=== PATIENT | male | born 1965 | race Caucasian/White ===

== ENCOUNTER → 2019-04-14 15:35 | Outpatient (CLI) | payer OTHER, SELFPAY ==
--- NOTE | ~2019-04-14 | MR_ITS ---
EXAMINATION: MR foot RT wo con DATE: 04/14/2019 16:47 INDICATION: Spontaneous rupture of the extensor tendons, right ankle and foot. TECHNIQUE: Magnetic resonance imaging (MRI) of the right foot was performed without intravenous contr ast. Sequences included sagittal PD-weighted FS FSE, sagittal PD-weighted FSE, coronal PD-weighted FS FSE, coronal PD-weighted FSE, axial PD-weighted FS FSE, and axial PD-weighted FSE. COMPARISON: None. FINDINGS: Medial ankle ligaments: The superficial and deep components of the deltoid ligament are normal. Lateral ankle ligaments: The anterior and posterior talofibular ligaments, calcaneofibular ligament, and anterior and posterio r tibiofibular ligaments are normal. Tendons: The Achilles tendon and medial and lateral ankle tendons are normal. There is a partial tear of tibia lis anterior tendon. A skin marker overlies this area. Plantar fascia: There is thickening of central band of plantar fascia, consistent with fasciitis. There is an entheso phyte at the calcaneal attachment. Bones/other: The talar dome is normal. Fluid: There is no joint effusion. IMPRESSION: 1. Partial tear of tibialis anterior tendon. 2. Plantar fasciitis. Reviewed, dictated and finalized at location A. [employer]
== END ==
PROVIDERS: PCP Family Medicine; Visit Provider Podiatrist Foot & Ankle Surgery
DX: M66.271 Spontaneous rupture of extensor tendons, right ankle and foot (principal); M79.671 Pain in right foot; M72.2 Plantar fascial fibromatosis
CPT/HCPCS: 73718

== ENCOUNTER 2022-04-30 10:06 | Outpatient (CLI) | payer OTHER, SELFPAY ==
--- NOTE | ~2022-04-30 | XR_ITS ---
EXAMINATION: XR lumbar spine min 4V DATE: 04/30/2022 10:41 INDICATION: Low back pain TECHNIQUE: Anteroposterior, lateral, and bilateral oblique views of the lumbar spine, and cone-down l ateral view of the lumbosacral junction were obtained. COMPARISON: None. FINDINGS: There are 2 mm of anterolisthesis of L5 on S1. There is no fracture. The vertebral body hei ghts are maintained. There is mild loss of intervertebral disc space height at L1-2 and L4-5. Small d egenerative osteophytes project from the anterior endplates of multiple vertebral bodies. There is mo derate facet joint osteoarthritis of the lower lumbar spine. IMPRESSION: 1. Mild lumbar spondylosis without acute findings. Reviewed, dictated and finalized at location B. [employer]
== END 2022-04-30 10:07 | disposition home or self-care (01) ==
PROVIDERS: PCP Family Medicine; Visit Provider Nurse Practitioner Gerontology
DX: M47.896 Other spondylosis, lumbar region (principal)
CPT/HCPCS: 72110

== ENCOUNTER 2023-12-18 15:43 | Outpatient (CLI) | payer OTHER, SELFPAY ==
--- NOTE | ~2023-12-18 | XR_ITS ---
EXAMINATION: XR chest 2V DATE: 12/18/2023 16:00 INDICATION: Shortness of breath. TECHNIQUE: Frontal and lateral views of the chest were obtained. COMPARISON: None. FINDINGS: There is an anterior mediastinal mass. There is mild elevation of left hemidiaphragm. There is mild atelectasis at left lung base. No pleural effusion or pneumothorax. The heart size is normal . There is mild chronic anterior wedging of multiple vertebral bodies. IMPRESSION: 1. Anterior mediastinal mass suspicious for neoplasm. Chest CT with contrast is recommended. Reviewed, dictated and finalized at location A.
== END 2023-12-18 15:44 | disposition home or self-care (01) ==
LOC: ANHIMG 15:44
PROVIDERS: PCP Family Medicine; Visit Provider Family Medicine
DX: R06.02 Shortness of breath (principal)
CPT/HCPCS: 71046

== ENCOUNTER 2023-12-22 07:51 | Outpatient (CLI) | payer OTHER, SELFPAY ==
--- NOTE | ~2023-12-22 | CT_ITS ---
Clinical Indication: Disease of mediastinum CT Scan of the Chest with Contrast: Technique: Contiguous sections were acquired throughout the chest after intravenous administration of 75 cc of Omnipaque 350. Dose reduction technique was used on this scan by utilizing automated exposu re control and iterative reconstruction technique. The dose-length product (DLP) was 626.49 mGy-cm. Findings: There is a large lobulated homogeneous anterior mediastinal mass, measuring approximately 13.4 x 8.2 x 8.1 cm in size. No aortic aneurysm or dissection. No pulmonary embolus seen. There is no evidence of pleural or pericardial effusion. The lungs are clear, aside from left basilar atelectatic change. Images through the upper abdomen reveal no abnormalities. Impression: Large anterior mediastinal mass measures approximately 13.4 x 8.2 x 2.1 cm. Appearance is suspicious for lymphoma versus other neoplasm such as thymic neoplasm or possibly germ cell tumor. Tissue sampli ng advised to establish a histologic diagnosis. Reviewed, dictated and finalized at location M. Impression: Large anterior mediastinal mass measures approximately 13.4 x 8.2 x 2.1 cm. Zohaib earance is suspicious for lymphoma versus other neoplasm such as thymic neoplas m or possibly germ cell tumor. Tissue sampling advised to establish a histologi c diagnosis.
[2023-12-22 08:29] LABS: Estimated Glomerular Filt Rate > 60
[2023-12-22 09:16] LABS: Basophils Absolute Auto 0.1 K/mm3 (0.0-0.1); Basophils Percent Auto 1.1 % (0.2-1.2); Eosinophils Absolute Auto 0.2 K/mm3 (0-0.3); Immature Granulocyte Absolute 0.02 K/mm3 (0.00-0.031); Immature Granulocyte Percent A 0.3 % (0-0.5); Lymphocytes Absolute Auto 1.35 K/mm3 (0.9-3.2); Lymphocytes Percent Auto 18.5 % (18.3-44.2); Mean Corpuscular HGB Conc 32.6 g/dl (32-36); Mean Corpuscular Volume 79.7 fl (80-100); Mean Platelet Volume 12.2 fl (7.4-10.4); Monocytes Absolute Auto 0.7 K/mm3 (0.1-0.6); Monocytes Percent Auto 8.9 % (2.6-8.5); Neutrophils Percent Auto 68.2 % (45.5-73.1); Platelet Count Result 167 k/mm3 (150-375); Red Blood Count 5.77 M/mm3 (4.6-6.20); Red Cell Distribution Width 14.7 % (11.5-14.5); White Blood Count 7.3 K/mm3 (4.5-10.0)
[2023-12-22 09:28] LABS: Partial Thromboplastin Time 29.3 Seconds (22.3-36.8)
[2023-12-22 09:33] LABS: Alanine Aminotransferase 33 U/L (6-50); Albumin Level 3.9 g/dL (3.5-5.1); Alkaline Phosphatase 73 U/L (38-126); Anion Gap 7 mmol/L (4-12); Aspartate Amino Transferase 38 U/L (17-59); Blood Urea Nitrogen 15 mg/dL (9-20); CRP 0.8 mg/dL (<1.0); Calcium 9.1 mg/dL (8.4-10.2); Carbon Dioxide 28 mmol/L (22-30); Chloride 100 mmol/L (98-107); Estimated Glomerular Filt Rate > 60; Glucose 101 mg/dL (65-110); Lactate Dehydrogenase 236 U/L (120-246); Potassium 4.1 mmol/L (3.4-5.0); Sodium 135 mmol/L (137-145)
[2023-12-22 09:59] LABS: Carcinoembryonic Antigen 3.9 ng/mL (0.0-3.0)
[2023-12-22 10:07] LABS: Erythrocyte Sedimentation Rate 7 mm/hr (0-20)
[2023-12-23 15:34] LABS: ANA Cascade Screen POSITIVE (NEGATIVE); Chromatin (Nucleosomal) Ab <1.0 NEG AI (<1.0 NEG); Chromatin Antibody Charge YES; DNA (ds) Antibody Charge YES; RNP Antibody 4.1 POS AI (<1.0 NEG); RNP Antibody Charge YES; Sm Antibody <1.0 NEG AI (<1.0 NEG); Sm Antibody Charge YES; Sm/RNP Antibody <1.0 NEG AI (<1.0 NEG); Sm/RNP Antibody Charge YES
[2023-12-28 14:33] LABS: Alpha Fetoprotein Tumor Marker 1.1 ng/mL (<6.1)
== END 2023-12-22 07:52 | disposition home or self-care (01) ==
LOC: ANHIMG 07:53
PROVIDERS: PCP Family Medicine; Visit Provider Family Medicine
DX: J98.59 Other diseases of mediastinum, not elsewhere classified (principal); R93.89 Abnormal findings on diagnostic imaging of other specified body structures; R06.02 Shortness of breath; I10 Essential (primary) hypertension
CPT/HCPCS: 36415; 71260; 80053; 82105; 82378; 83615; 84443; 85025; 85652; 85730; 86038; 86140; 86225; 86235; 86364; Q9967

== ENCOUNTER 2023-12-29 09:03 | Outpatient (CLI) | payer OTHER, SELFPAY ==
[2023-12-23 15:32] VITALS: BMI 33.0
--- NOTE | 2023-12-23 15:33 | PC.NURSE ---
Pre Radiology instructions Report to the outpatient jeana batres on date _[id number]_ at time _0900_ for procedure Time: _1100_ YOU MAY BE MONITORED AT HOSPITAL FOR UP TO 4 HOURS AFTER YOUR PROCEDURE. A visitor will be allowed to accompany the patient into the hospital. You and your visitor will be asked to self-screen and do not enter if you have any COVID symptoms. A mask is OPTIONAL within the hospital. Patients are to have no food or drink 6 hours prior to procedure time Driving will be restricted after the procedure, you must have a person to drive you home. Labs will be drawn in preop area and once reviewed, you will be taken to radiology area for procedure. When the procedure is completed, you will be taken to outpatient where you will be monitored for several hours. You may have one visitor in this area. Other than holding anti-coagulants, patient may take other medication(s) as scheduled. Prior to your appointment date patients are instructed to hold anti-coagulants after discussing with ordering provider to stop. If unable to discontinue anti-coagulants please notify radiologist. ? No aspirin or warfarin (Coumadin) for 7 days prior to the procedure. ? No clopidogrel (Plavix), ticagrelor (Brilinta), prasugrel (Effient) or dabigatran (Pradaxa) for 5 days prior to the procedure. ? No rivaroxaban (Xarelto), apixaban (Eliquis), dipyridamole (Aggrenox or Persantine) or cilostazol (Pletal) for 2 days prior to the procedure. Medications to discontinue per physician: __Aspirin Date to take last dose: ___[id number] Please leave all valuables, including medications, at home the day of procedure. The hospital will not accept responsibility for valuables. Wear comfortable, loose fitting clothing.? Follow any additional instructions given to you from ordering provider. Telephone instructions given to ___Donnie and asked if any additional questions and then verbalized understanding. Patient advised to call scheduling provider office or registration scheduling [phone] if any additional questions.
--- NOTE | 2023-12-25 13:42 | PC.NURSE ---
Report to the outpatient jeana carneymanolojeanne on date _[id number]_ at time _0900_ for procedure Time: _1100_ YOU MAY BE MONITORED AT HOSPITAL FOR UP TO 4 HOURS AFTER YOUR PROCEDURE. A visitor will be allowed to accompany the patient into the hospital. You and your visitor will be asked to self-screen and do not enter if you have any COVID symptoms. A mask is OPTIONAL within the hospital. Patients are to have no food or drink 6 hours prior to procedure time Driving will be restricted after the procedure, you must have a person to drive you home. Labs will be drawn in preop area and once reviewed, you will be taken to radiology area for procedure. When the procedure is completed, you will be taken to outpatient where you will be monitored for several hours. You may have one visitor in this area. Other than holding anti-coagulants, patient may take other medication(s) as scheduled. Prior to your appointment date patients are instructed to hold anti-coagulants after discussing with ordering provider to stop. If unable to discontinue anti-coagulants please notify radiologist. ? No aspirin or warfarin (Coumadin) for 7 days prior to the procedure. ? No clopidogrel (Plavix), ticagrelor (Brilinta), prasugrel (Effient) or dabigatran (Pradaxa) for 5 days prior to the procedure. ? No rivaroxaban (Xarelto), apixaban (Eliquis), dipyridamole (Aggrenox or Persantine) or cilostazol (Pletal) for 2 days prior to the procedure. Medications to discontinue per physician: __Aspirin Date to take last dose: ___Stop now. Please leave all valuables, including medications, at home the day of procedure. The hospital will not accept responsibility for valuables. Wear comfortable, loose fitting clothing.? Follow any additional instructions given to you from ordering provider. Telephone instructions given to ___Donnie and asked if any additional questions and then verbalized understanding. Patient advised to call scheduling provider office or registration scheduling [phone] if any additional questions.
[2023-12-29] VITALS (8 sets, daily range): BP systolic 143–162; BP diastolic 74–93; PULSE 52–60; RESP 14–20; TEMP 36.1; O2SAT 97
--- NOTE | ~2023-12-29 | CT_ITS ---
EXAMINATION: CT biopsy lung w/imaging DATE: 12/29/2023 11:31 INDICATION: Mediastinal mass TECHNIQUE: The procedure including the risks and benefits was discussed with the patient. Risks discu ssed included infection, hemorrhage, allergic reaction and remote possibility of pneumothorax. The pa tient understood the risks and agreed to proceed. Prior imaging was reviewed and a left parasternal a pproach was chosen medial to the internal mammary vessels and which project 3/7 and lateral to the pu lmonary arteries. No enhancing vessels identified in the region of biopsy on the prior postcontrast i maging. The patient was placed supine. The skin overlying the left parasternal anterior chest was pr epped and draped in sterile fashion. Anesthetic was administered with 1% lidocaine subcutaneously. A 16 gauge outer needle was advanced under CT guidance to the lesion of interest. An 18 gauge core bi opsy needle was then used to obtain 7 core biopsy specimens, 5 placed in RPMI media and 2 in formalin . The needle was removed and the entry site was cleaned and dressed. There were no immediate complic ations. The dose-length product was 364.33 mGy-cm. FINDINGS: CT images demonstrate the outer needle tip adjacent to a large anterior mediastinal mass. IMPRESSION: 1. Successful CT-guided biopsy of a large anterior mediastinal mass concerning for metastatic disease or lymphoma. Reviewed, dictated and finalized at location A.
--- NOTE | ~2023-12-29 | XR_ITS ---
XR chest 1V portable Ordering provider: Randall Krishnan MD History: 58 years Male with . Post Image Guided Lung Biopsy . Comparison: December 29, 2023 FINDINGS: MEDIASTINUM: The cardiac silhouette is not enlarged. Widening of the superior mediastinum is seen wit h a mass seen to the left. LUNGS: No infiltrates, effusions or pneumothorax. Nodule is seen in the left lower lobe laterally. Ti ny lucency is seen in the left apical area medially which may be air bubble. OTHER: No free air under the diaphragm. IMPRESSION: No evidence of significant or obvious pneumothorax. Other appearances are unchanged. Reviewed, dictated and finalized at location A.
--- NOTE | ~2023-12-29 | XR_ITS ---
XR chest 1V Ordering provider: Randall Krishnan MD History: 58 years Male with . POST LT MEDIASTINUM/LUNG BIOPSY . Comparison: December 18, 2023 FINDINGS: MEDIASTINUM: Widening of the mediastinum is again demonstrated with no change from previous examinati on. The cardiac silhouette is not enlarged. LUNGS: No infiltrates, effusions or pneumothorax. OTHER: No free air under the diaphragm. IMPRESSION: Widening of the superior mediastinum. No acute cardiopulmonary pathology. Reviewed, dictated and finalized at location A.
--- NOTE | ~2023-12-29 | XR_ITS ---
EXAMINATION: XR chest 1V portable DATE: 12/29/2023 14:36 INDICATION: 3 hour post mediastinal biopsy TECHNIQUE: frontal view of the chest was obtained. COMPARISON: Chest radiograph dated 12/18/2023 and earlier in the day on 12/29/2023 FINDINGS: Persistent elevation of the left hemidiaphragm. There is mild streaky atelectasis at the bilateral vik ng bases. No pulmonary edema, pleural effusion or pneumothorax. Heart size is normal. Mediastinal wid ening corresponding to the biopsied anterior mediastinal mass. IMPRESSION: 1. No pneumothorax or other acute cardiopulmonary disease post percutaneous biopsy of an anterior med iastinal mass which is concerning for neoplasm. Reviewed, dictated and finalized at location A. IMPRESSION: 1. No pneumothorax or other acute cardiopulmonary disease post percutaneous bio psy of an anterior mediastinal mass which is concerning for neoplasm.
[2023-12-29 09:57] LABS: Mean Platelet Volume 11.6 fl (7.4-10.4); Platelet Count Result 178 k/mm3 (150-375)
[2023-12-29 10:09] LABS: Prothrombin Time 13.5 Seconds (11.1-14.7)
== END 2023-12-29 15:00 | disposition home or self-care (01) ==
PROVIDERS: PCP Family Medicine; Visit Provider Radiology Diagnostic Radiology
PROC: BB24ZZZ Computerized Tomography (CT Scan) of Bilateral Lungs (ICD-10-PCS; CPT 32408; principal; 2023-12-29 11:00)
DX: J98.59 Other diseases of mediastinum, not elsewhere classified (principal)
CPT/HCPCS: 32408; 36415; 71045; 85049; 85610; 88184; 88305; 88342

== ENCOUNTER 2024-08-11 13:45 | Outpatient (RCR) | payer OTHER, SELFPAY | END 2024-08-11 14:26 | disposition home or self-care (01) | LOC: ANHCPREHAB 13:45 | PROVIDERS: PCP Family Medicine; Visit Provider Internal Medicine | DX: Z95.5 Presence of coronary angioplasty implant and graft (principal) | CPT/HCPCS: 93798 ==

== ENCOUNTER 2024-08-24 14:07 | Outpatient (CLI) | payer OTHER, SELFPAY ==
--- NOTE | ~2024-08-24 | US_ITS ---
US arterial ankle brachial ind INDICATION: Peripheral vascular disease TECHNIQUE: Segmental pressures and plethysmographic and Doppler waveforms of the brachial and lower e xtremity arteries were obtained. COMPARISON: None. FINDINGS: Right and left brachial artery pressures of 113 mm Hg and 120 mm Hg, respectively, are concordant (no rmal difference <= 30 mmHg). The right ankle-brachial index (DANIEL) is 1.37 (normal >= 0.9-1.0). The right great toe-brachial index (TBI) is 1.04 (normal >= 0.60). The left DANIEL is 1.34. The left TBI is 1.02. IMPRESSION: 1. Normal ankle-brachial indices. Reviewed, dictated and finalized at location []
--- OUTSIDE RECORDS SUMMARY | 2024-08-24 16:58 | XMS_ITS | Referral Summary ---
Author Organization [facility] Address [address] [place] [address] Care Team Providers Care Estate Tax Examiner Name Role Phone Babita Smart MD Unavailable [phone] Holden Miller MD PhD Unavailable [phone] Shahid Riddle MD Unavailable [phone] Elan Riddle MD Unavailable [phone] Peter Keita MD Unavailable [phone] Peter Keita MD Primary Care Provider Encounters Date Type Department Care Team Description 08/24/2024 Telephone [facility] Cardiology [address] [facility] 8th [place] [address] [place] [address] Bridgette Elaine 08/22/2024 Telephone [facility] Oncology [address] [facility] [address] [place] [address] Anayeli Coker RMA 08/18/2024 9:30 AM CDT Clinical Support [facility] [address] [address] 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) 08/18/2024 10:00 AM CDT Office Visit [facility] Bone Marrow Transplant [address] [place] [phone] Brittaney Mitchell, OBIEE ARCHITECT 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) (Primary Dx) 08/17/2024 Orders Only [facility] Oncology [address] [place] [phone] Esther Finch, HERNAN Thyroid nodule (Primary Dx); 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) 08/16/2024 9:51 AM CDT - 08/16/2024 11:59 PM CDT Hospital Encounter [facility] [address] [address] 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) Discharge Disposition: Discharge to home or self care 07/18/2024 3:30 PM CDT Clinical Support [facility] [place] at [address] [address] 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) 07/18/2024 9:30 AM CDT Infusion [facility] Cancer [address] [address] 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) (Primary Dx) 07/14/2024 10:15 AM CDT Clinical Support [facility] [place] at [address] [address] 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) 07/14/2024 11:30 AM CDT Infusion [facility] Cancer [address] [address] 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) (Primary Dx) 07/14/2024 10:45 AM CDT Office Visit [facility] Physicians [facility] Bone Marrow Transplant [address] [place] [address] [address] [place] [address] Shahid Riddle MD 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) (Primary Dx) 07/11/2024 Orders Only [address] [phone] Siomara Wiseman [facility] 07/11/2024 10:00 AM CDT Clinical Support [address] [address] 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) 07/07/2024 10:00 AM CDT Clinical Support [address] [address] 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) (Primary Dx) 06/23/2024 11:00 AM CDT Clinical Support [address] [address] 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) 06/23/2024 12:00 PM CDT Infusion [address] [place] [address] 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) (Primary Dx) 06/23/2024 11:20 AM CDT Office Visit [facility] Bone Marrow Transplant [address] [place] [address] [address] [place] [address] Brigette Johnson, RADHA 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) (Primary Dx) 06/20/2024 Orders Only [facility] Oncology [address] [place] [address] [address] [place] [address] Shahid Riddle MD 06/20/2024 Orders Only [address] [address] Siomara Wiseman RPh 06/20/2024 8:00 AM CDT Clinical Support [address] [address] 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) 06/16/2024 Orders Only [facility] [place] at [address] [phone] Siomara Wiseman RPh 06/16/2024 8:00 AM CDT Clinical Support [facility] at [address] [address] 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) 06/13/2024 8:00 AM CDT Clinical Support [facility] at [address] [address] 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) 06/09/2024 Orders Only [facility] Oncology [address] [place] [phone] Esther Finch, HERNAN 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) (Primary Dx) 06/09/2024 8:00 AM CDT Clinical Support [facility] [place] at [address] [address] 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) 06/06/2024 2:15 PM CDT Clinical Support [facility] at [address] [address] 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) 06/06/2024 7:30 AM CDT Clinical Support [facility] [place] at [address] [address] 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) 06/06/2024 8:00 AM CDT Infusion [facility] at [address] [address] 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) (Primary Dx) 06/02/2024 8:30 AM CDT Infusion [facility] Cancer [address] [address] 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) (Primary Dx) 06/02/2024 7:30 AM CDT Clinical Support [facility] at [address] [address] 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); Iron deficiency anemia, unspecified iron deficiency anemia type 06/02/2024 8:00 AM CDT Office Visit [facility] Bone Marrow Transplant [address] [place] [address] [address] [place] [phone] Shahid Riddle MD Iron deficiency anemia, unspecified iron deficiency anemia type (Primary Dx); 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) 06/01/2024 Orders Only [facility] Bone Marrow Transplant [address] [place] [phone] Corine Zhou, [facility] 06/01/2024 Orders Only [facility] Oncology [address] [place] [address] [address] [place] [address] Vickie Mascorro, [facility] 06/01/2024 Results Follow-Up [facility] Cardiology at [address] [place] [address] Elan Riddle MD Transthoracic Echo (TTE) Complete W Doppler/CF 05/30/2024 8:30 AM CDT Clinical Support [facility] at [address] [address] 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) 05/26/2024 8:30 AM CDT Clinical Support [facility] at [address] [address] 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) from Last 3 Months Allergies No known active allergies Medications allopurinol (ZYLOPRIM) 300 mg tablet take 1 tablet (300MG) by oral route every day 0 03/10/20 12 Active sertraline (ZOLOFT) 50 mg tablet take 1 tablet by oral route every day 0 03/10/20 12 Active ALPRAZolam (XANAX) 0.25 mg tablet Take 1 tablet (0.25 mg total) by mouth 2 (two) times a day 01/22/20 24 Active ie-ncf-tvqyx-lyc [id number] 200-175-250 mcg tablet Take by mouth Active ondansetron (ZOFRAN) 8 mg tabletIndication s: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 Then every 8 hours as needed if prochlorperazine does not stop nausea. 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 16 tablet 5 02/25/20 24 Active lidocaine-priloc omid creamIndications :Administration of Local Anesthesia Apply topically as needed for pain (with port a cath access) Apply 30 minutes before appointment 30 g 2 02/25/20 24 Active predniSONE (DELTASONE) 20 mg tablet Take 7.5 tablets (150 mg) by mouth 2 (two) times a day For 5 days Days 1-5 of each 21 days cycle 75 tablet 02/25/20 24 Active senna-docusate (Senna-S) 8.6-50 mgIndications:Di ffuse large B-cell lymphoma of intrathoracic lymph nodes (HCC) Take 2 tablets by mouth 2 (two) times a day 120 tablet 03/27/19 25 Active prochlorperazine (Compazine) 10 mg tabletIndication s: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) Take 1 tablet (10 mg total) by mouth every 6 (six) hours as needed for nausea or vomiting 120 tablet 03/27/19 25 Active aspirin (Derrell Low Dose Aspirin) 81 mg enteric coated tablet Take 1 tablet (81 mg total) by mouth daily 30 tablet 04/12/19 25 Active metoprolol XL (TOPROL-XL) 50 mg extended release tablet Take 1 tablet (50 mg total) by mouth nightly 90 tablet 3 04/12/19 25 Active ticagrelor (BRILINTA) 90 mg tablet Take 1 tablet (90 mg total) by mouth 2 (two) times a day 180 tablet 3 04/12/19 25 Active famotidine (PEPCID) 20 mg tabletIndication s: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) TAKE 1 TABLET BY MOUTH EVERY DAY 90 tablet 2 04/17/19 25 Active atorvastatin (LIPITOR) 40 mg tablet Take 1 tablet (40 mg total) by mouth nightly 90 tablet 3 04/21/19 25 026 Active dapagliflozin propanediol (FARXIGA) 10 mg tablet Take 1 tablet (10 mg total) by mouth daily 90 tablet 3 04/21/19 25 Active losartan (COZAAR) 25 mg tablet Take 1 tablet (25 mg total) by mouth daily 90 tablet 3 04/21/19 25 026 Active spironolactone (ALDACTONE) 25 mg tablet Take 1 tablet (25 mg total) by mouth daily 90 tablet 3 04/21/19 25 026 Active al & mag hydroxide with simethicone-diph enhydramine-lido bhupinder (MAGIC MOUTHWASH) suspension 1-1-1 Swish and spit 15 mL 4 (four) times a day as needed (mouthsores) 360 mL 1 07/05/19 25 Active furosemide (LASIX) 20 mg tablet Take 1 tablet (20 mg total) by mouth 2 (two) times a day for 5 days 10 tablet 2 07/15/19 25 Active Active Problems Problem Noted Date Diagnosed Date Heart failure with mildly reduced ejection fract ion 04/08/2024 Constipation 03/25/2024 Assessment & Plan (03/26/2024 10:47 AM PATIENT RELATIONS LIAISON): Several days of constipation - Senna-docusate bid, miralax and bisacodyl suppository prn in addition - Advised to avoid straining - Resolved 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 Diagnosed with mediastinal mass biopsy 02/10/2024. Ki-67 50% Started C1D1 R-EPOCH on 02/26/2024, C2D1 on 03/17/2024 - Follow the rest of BMT recs: Hold R-EPOCH for now - OI ppx: acyclovir 400 mg BID, Bactrim 800-160 MWF - Transfuse per BMT protocol (Hb <8, Plt <10) NSTEMI (non-ST elevated myocardial infarction) 0 03/23/2024 Assessment & Plan (03/28/2024 11:38 AM PATIENT RELATIONS LIAISON): Patient with known CAD experiencing chest pain starting 03/17/24 about 12 hrs after C2 R-EPOCH lasted for an hour and then resolved spontaneously. Presented to OSH ([facility]): Troponin I elevated 0.164 on admission, peaked at 2.7 on 03/18 and then trended down 1.2 on 03/20. NT-proBNP 358. EKG with normal sinus rhythm and no ischemic changes per chart review. Started on heparin gtt for NSTEMI management. Unclear if with aspirin load, on aspirin 81mg daily Per cath report, left main coronary artery is widely patent but the mid LAD has a stent with 99% stenosis and vessel appears to be constricted past this area of stenosis. Left circumflex artery showed that there is a large caliber vessel that branches into 2 significant OM branches and right before the bifurcation, there is a 90-95% stenosis. RCA midbody has a eccentric 70% stenosis. The LVED pressure 12 mmHg. Per OSH cardiology team, they discussed with pt about PCI vs CABG. Given his hx of in-stent restenoses and that is he is 58 years old who did not have radiation therapy and is relatively functional, it was decided that he should have a surgical eval. He was transferred to [facility] to be evaluated. CTA Chest 03/18/2024: negative for PE, aortic dissection, or aortic aneurysm. The extensive homogeneous anterior mediastinal mass is decreased in extent from prior exam CT chest and cath images uploaded on [employer] Previous TTE 02/05/2024 LVEF 40-45% with anterior wall akinesis, apical wall akinesis, hypokinesis of anterioseptal segment. Possible apical aneurysm, difficult to assess given limited views. - Follow Cardiothoracic surgery, Cards-Onc recs. Recommending CAD heart team discussion on CABG vs PCI. Final plan: 03/25/24, PCI to LAD with drug-coated balloon to temporize his coronary disease prior to any surgical intervention. Potentially may be considered eligible for CABG later on after treatment of lymphoma - Continued heparin gtt (until prior to PCI), home aspirin 81mg, increased dose atorvastatin to 40mg, and metoprolol 50mg daily - Follow DAPT recs: loaded with clopdigorel during PCI, changed to ticagrelor (load 180mg on 03/26) then started ticagrelor 90mg bid 03/26 evening, maintain aspirin 81mg daily. Continue DAPT for at least 30 days. 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 distal septal and apical barraza. Grade I diastolic LV dysfunction - Telemetry while inpatient - Cardiac rehab as outpatient. F/u with local cop Diffuse large B-cell lymphoma of intrathoracic l ymph nodes 02/18/2024 Mediastinal mass 02/09/2024 Persons encountering health services in other specified circumstances 02/02/2024 Mixed hyperlipidemia 04/05/2021 LVE (left ventricular enlargement) 04/05/2021 Bradycardia 11/30/2017 S/P coronary artery stent placement 10/08/2016 Adiposity 04/02/2016 Overview (06/19/2016): Obesity, Class I, BMI 30.0-34.9 (see actual BMI) CAD (coronary artery disease) 04/02/2016 Overview (06/19/2016): Coronary artery disease involving tlingit & [place] coronary artery of tlingit & ha[place] heart without angina pectoris Assessment & Plan (03/24/2024 10:20 AM PATIENT RELATIONS LIAISON): CAD s/p stent placement (2006 in [place], [place]) Management as above Hypertension 04/02/2016 Overview (06/19/2016): HTN (hypertension), benign Assessment & Plan (03/28/2024 11:34 AM PATIENT RELATIONS LIAISON): BP stable. Discontinue home HCTZ-irbesartan, hydralazine, doxazosin to allow room for heart failure GDMT initiation. See above Abnormal thallium stress test 04/02/2016 Overview (06/19/2016): Abnormal nuclear stress test BLUE (obstructive sleep apnea) 04/02/2016 Overview (06/19/2016): BLUE on CPAP Assessment & Plan (03/24/2024 10:16 AM PATIENT RELATIONS LIAISON): CPAP HS History of myocardial infarction 04/02/2016 Overview (06/19/2016): H/O acute myocardial infarction Resolved Problems Problem Noted Date Diagnosed Date Resolved Date Heart failure with reduced ejection fraction 5 04/08/2024 Assessment & Plan (03/28/2024 11:38 AM PATIENT RELATIONS LIAISON): 01/2024: LV systolic function is reduced, EF 40-45% Currently compensated - Repeated TTE this admission as mentioned above - Continue home metoprolol 50mg daily. Add spironolactone 25mg daily, losartan 25mg daily, dapagliflozin 10mg daily per Cards. 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 4 Dyslipidemia 04/02/2016 04/05/2021 Overview (06/19/2016): Dyslipidemia History of placement of sten t for coronary artery disease 04/02/2016 04/05/2021 Overview (06/19/2016): S/P coronary artery stent placement Immunizations Immunization Administration Dates Next Due Influenza, Split 02/17/2013 Influenza, Unspecified 12/15/2023 ZOSTER Recombinant 10/18/2022,08/08/2022 Social History Tobacco Use Types Packs/Day Years Used Date Smoking Tobacco: Never Smokeless Tobacco: Never Alcohol Use Standard Drinks/Week Comments No 0 (1 standard drink = 0.6 oz pur e alcohol) AUDIT-C Answer Date Recorded Q1: How often do you have a drink containing alcohol? Never 08/18/2024 Q2: How many drinks containi ng alcohol do you have on a typical day when you are drinking? Patient does not drink Q3: How often do you have si x or more drinks on one occasion? Never 08/18/2024 Personal Safety Answer Date Recorded Have you ever been in or are you currently in a harmful physical or emotional relationship or is someone making you feel afraid or unsafe? Denies 03/23/2024 Sex and Gender Information Value Date Recorded Sex Assigned at Not on file Legal Sex Male 2:34 AM PATIENT RELATIONS LIAISON Gender Identity Male 12/19/2023 7:33 PM CDT Sexual Orientation Straight 12/19/2023 7: 33 PM CDT Last Filed Vital Signs Vital Sign Reading Time Taken Comments Blood Pressure 123/78 08/18/2024 10:51 AM CDT Pulse 64 08/18/2024 10:51 AM CDT Temperature 36.9 C (98.5 F) 08/18/2024 10:51 AM CDT Respiratory Rate 18 08/18/2024 10:5 1 AM CDT Oxygen Saturation 100% 08/18/2024 10: 51 AM CDT Inhaled Oxygen Concentration - - Weight 112.8 kg (248 lb 10.9 oz) 2024 10:51 AM CDT Height 190.5 cm (6' 3) 04/08/2024 7:57 AM PATIENT RELATIONS LIAISON Body Mass Index 31.08 04/08/2024 7:57 AM PATIENT RELATIONS LIAISON Plan of Treatment Not on file Medical Devices Implanted Type Area Butt Trimmer Device Identifier Shelf Expiration Date Model / Serial / Lot [employer] Angio-Seal Vip 6fr Closere Device [id number] - [id number] - [id number] Implanted:Qt y: 1 on 03/25/2024 by Zi Orozco MD PhD at [facility] Collagen N/A: Superficial Femoral Artery [employer] Les[employer] 07/27/2024 [id number] / [id number] / [id number] Medtronic Card Vasc Surgery 2.75 X 34mm Parkman Pershing Rx Coronary Stent [id number] x - [id number] 001 - [id number] Implanted:Qt y: 1 on 03/25/2024 by Zi Orozco MD PhD at [facility] Stent N/A: Coronary Artery Medtronic Card Vasc Surgery 09/27/2026 [id number] / [id number] / [id number] Description:OM Medtronic Card Vasc Surgery 3.5 X 18mm Parkman Pershing Rx Coronary Stent [id number] x - [id number] 001 - [id number] Implanted:Qt y: 1 on 03/25/2024 by Zi Orozco MD PhD at [facility] Stent N/A: Coronary Artery Medtronic Card Vasc Surgery 11/19/2026 [id number] 18UX / [id number] / [id number] Description:OM [employer] Xcela Power Port 8fr [id number] - [id number] Implanted:Qt y: 1 on 02/08/2024 at [facility] Ang[employer] Dynamics 08/29/2028 [id number] / / [id number] Procedures Procedure Name Priority Date/Time Associated Diagnosis Comments EGFR Routine 08/18/2024 9:46 AM CDT 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) BLOOD SMEAR REVIEW Routine 08/18/2024 9: 46 AM CDT 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) DIFFERENTIAL AUTO Routine 08/18/2024 9:4 6 AM CDT 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) CBC WITH AUTO DIFFERENTIAL Routine 08/18/2024 9:46 AM CDT 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) COMPREHENSIVE METABOLIC PANEL Routine 08/18/2024 9:46 AM CDT 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) LACTATE DEHYDROGENASE Routine 08/18/2024 9:46 AM CDT 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) PET/CT FDG SKULL TO THIGH Schedule Routine, Read Routine (OP Routine) 08/16/2024 11:21 AM CDT 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) POCT GLUCOSE DEVICE Routine 08/16/2024 10:01 AM CDT EGFR STAT 07/14/2024 10:29 AM CDT 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) DIFFERENTIAL AUTO STAT 07/14/2024 10:29 AM CDT 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) LACTATE DEHYDROGENASE Routine 07/14/2024 10:29 AM CDT 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) COMPREHENSIVE METABOLIC PANEL STAT 07/14/2024 10:29 AM CDT 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) CBC WITH AUTO DIFFERENTIAL STAT 07/14/2024 10:29 AM CDT 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) EGFR Routine 07/11/2024 10:16 AM CDT 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) BLOOD SMEAR REVIEW Routine 07/11/2024 10:16 AM CDT 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) DIFFERENTIAL AUTO Routine 07/11/2024 10:16 AM CDT 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) CBC WITH AUTO DIFFERENTIAL Routine 07/11/2024 10:16 AM CDT 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) COMPREHENSIVE METABOLIC PANEL Routine 07/11/2024 10:16 AM CDT 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) EGFR Routine 07/07/2024 10:05 AM CDT 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) BLOOD SMEAR REVIEW Routine 07/07/2024 10:05 AM CDT 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) DIFFERENTIAL AUTO Routine 07/07/2024 10:05 AM CDT 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) CBC WITH AUTO DIFFERENTIAL Routine 07/07/2024 10:05 AM CDT 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) COMPREHENSIVE METABOLIC PANEL Routine 07/07/2024 10:05 AM CDT 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) EGFR Routine 07/04/2024 10:21 AM CDT 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) BLOOD SMEAR REVIEW Routine 07/04/2024 10:21 AM CDT 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) IMMATURE PLATELET FRACTION Routine 07/04/2024 10:21 AM CDT 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) DIFFERENTIAL AUTO Routine 07/04/2024 10:21 AM CDT 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) CBC WITH AUTO DIFFERENTIAL Routine 07/04/2024 10:21 AM CDT 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) COMPREHENSIVE METABOLIC PANEL Routine 07/04/2024 10:21 AM CDT 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) EGFR Routine 06/30/2024 8:29 AM CDT 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) BLOOD SMEAR REVIEW Routine 06/30/2024 8: 29 AM CDT 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) DIFFERENTIAL AUTO Routine 06/30/2024 8:2 9 AM CDT 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) CBC WITH AUTO DIFFERENTIAL Routine 06/30/2024 8:29 AM CDT 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) COMPREHENSIVE METABOLIC PANEL Routine 06/30/2024 8:29 AM CDT 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) EGFR Routine 06/27/2024 11:18 AM CDT 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) DIFFERENTIAL AUTO Routine 06/27/2024 11:18 AM CDT 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) COMPREHENSIVE METABOLIC PANEL Routine 06/27/2024 11:18 AM CDT 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) CBC WITH AUTO DIFFERENTIAL Routine 06/27/2024 11:18 AM CDT 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) EGFR STAT 06/23/2024 11:14 AM CDT 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) DIFFERENTIAL AUTO STAT 06/23/2024 11:14 AM CDT 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) CBC WITH AUTO DIFFERENTIAL STAT 06/23/2024 11:14 AM CDT 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) COMPREHENSIVE METABOLIC PANEL STAT 06/23/2024 11:14 AM CDT 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) LACTATE DEHYDROGENASE Routine 06/23/2024 11:14 AM CDT 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) EGFR Routine 06/20/2024 8:20 AM CDT 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) BLOOD SMEAR REVIEW Routine 06/20/2024 8: 20 AM CDT 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) DIFFERENTIAL AUTO Routine 06/20/2024 8:2 0 AM CDT 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) CBC WITH AUTO DIFFERENTIAL Routine 06/20/2024 8:20 AM CDT 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) COMPREHENSIVE METABOLIC PANEL Routine 06/20/2024 8:20 AM CDT 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) EGFR Routine 06/16/2024 8:09 AM CDT 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) IMMATURE PLATELET FRACTION Routine 06/16/2024 8:09 AM CDT 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) BLOOD SMEAR REVIEW Routine 06/16/2024 8: 09 AM CDT 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) DIFFERENTIAL AUTO Routine 06/16/2024 8:0 9 AM CDT 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) CBC WITH AUTO DIFFERENTIAL Routine 06/16/2024 8:09 AM CDT 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) COMPREHENSIVE METABOLIC PANEL Routine 06/16/2024 8:09 AM CDT 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) MANUAL DIFFERENTIAL Routine 06/13/2024 8 :24 AM CDT 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) EGFR Routine 06/13/2024 8:24 AM CDT 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) DIFFERENTIAL AUTO Routine 06/13/2024 8:2 4 AM CDT 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) COMPREHENSIVE METABOLIC PANEL Routine 06/13/2024 8:24 AM CDT 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) CBC WITH AUTO DIFFERENTIAL Routine 06/13/2024 8:24 AM CDT 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) EGFR Routine 06/09/2024 8:22 AM CDT 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) MANUAL DIFFERENTIAL Routine 06/09/2024 8 :22 AM CDT 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) DIFFERENTIAL AUTO Routine 06/09/2024 8:2 2 AM CDT 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) CBC WITH AUTO DIFFERENTIAL Routine 06/09/2024 8:22 AM CDT 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) COMPREHENSIVE METABOLIC PANEL Routine 06/09/2024 8:22 AM CDT 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) EGFR Routine 06/06/2024 7:51 AM CDT 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) DIFFERENTIAL AUTO Routine 06/06/2024 7:5 1 AM CDT 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) CBC WITH AUTO DIFFERENTIAL Routine 06/06/2024 7:51 AM CDT 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) COMPREHENSIVE METABOLIC PANEL Routine 06/06/2024 7:51 AM CDT 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) EGFR Routine 06/02/2024 7:38 AM CDT 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) DIFFERENTIAL AUTO Routine 06/02/2024 7:3 8 AM CDT 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) FERRITIN Routine 06/02/2024 7:38 AM CDT Iron deficiency anemia, unspecified iron deficiency anemia type IRON PROFILE W/ IBC Routine 06/02/2024 7 :38 AM CDT Iron deficiency anemia, unspecified iron deficiency anemia type LACTATE DEHYDROGENASE Routine 06/02/2024 7:38 AM CDT 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) COMPREHENSIVE METABOLIC PANEL Routine 06/02/2024 7:38 AM CDT 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) CBC WITH AUTO DIFFERENTIAL Routine 06/02/2024 7:38 AM CDT 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) TRANSTHORACIC ECHO (TTE) COMPLETE W DOPPLER/CF W CONTRAST Routine 05/30/2024 2:57 PM CDT Heart failure with mildly reduced ejection fraction (HCC) EGFR Routine 05/30/2024 8:40 AM CDT 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) DIFFERENTIAL AUTO Routine 05/30/2024 8:4 0 AM CDT 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) CBC WITH AUTO DIFFERENTIAL Routine 05/30/2024 8:40 AM CDT 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) COMPREHENSIVE METABOLIC PANEL Routine 05/30/2024 8:40 AM CDT 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) MANUAL DIFFERENTIAL Routine 05/26/2024 8 :36 AM CDT 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) EGFR Routine 05/26/2024 8:36 AM CDT 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) COMPREHENSIVE METABOLIC PANEL Routine 05/26/2024 8:36 AM CDT 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) CBC WITH AUTO DIFFERENTIAL Routine 05/26/2024 8:36 AM CDT 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) HEPATITIS C ANTIBODY Routine 02/18/2024 12:48 PM PATIENT RELATIONS LIAISON Mediastinal mass from Last 3 Months or Most Recently Relevant to Health Maintenance Results * Blood smear review (08/18/2024 9:46 AM CDT) RBC morphology Consistent with RBC Indicies Comment:Testing performed by : [address] [address] Platelet estimate Adequate ETHAN Comment:Testing performed by : [address] [address] Blood 08/18/2024 9:46 AM CDT 08/18/2024 9:51 AM CDT Shahid Riddle MD LAB BLOOD ORDERABLES Final R esult Performing Organization Address [facility] de Phone Number [place] [phone] [facility] [employer] [facility] [place] [address] * eGFR (08/18/2024 9:46 AM CDT) eGFR >90 >=60 mL/min/1. 73 m2 Comment: Interpretive Data Reference Interval Normal >/= 90 mL/min/1.73m2 Mildly decreased* 60 - 89 mL/min/1.73m2 Mildly to moderately decreased 45 - 59 mL/min/1.73m2 Moderately to severely decreased 30 - 44 mL/min/1.73m2 Severely decreased 15 - 29 mL/min/1.73m2 Kidney Failure < 15 mL/min/1.73m2 *Relative to young adult level Estimated glomerular filtration rate is determined by the 2020 CKD-EPI equation recommended by the National Kidney Foundation (A Unifying Approach to GFR Estimation: Recommendations of the NKF-ASK Task Force on Reassessing the Inclusion of Race in Diagnosing Kidney Disease, JASN 2020). The CKD-EPI equation should not be used for patients with unstable renal function and has not been validated in children and those over 70. Current interpretive data was last reviewed 2021. Testing performed by: [address] [address] Blood 08/18/2024 9:46 AM CDT 08/18/2024 9:51 AM CDT Shahid Riddle MD LAB BLOOD ORDERABLES Final R esult Performing Organization Address [facility] Co de Phone Number [facility] [address] [facility] Department [place] [address] * (ABNORMAL) Differential, auto (08/18/2024 9:46 AM CDT) Neutrophil abs 2.82 1.50 - 6.50 K/cumm Comment:Testing performed by : [address] [address] Imm gran abs 0.03 0.00 - 0.10 K/cumm ETHAN SONG Comment:Testing performed by : [address] [address] Lymphocyte abs 0.32(L) 0.80 - 3.30 K/cumm ETHAN Comment:Testing performed by : [address] [address] Monocyte abs 0.37 0.20 - 0.80 K/cumm ETHAN Comment:Testing performed by : [address], [place]., [address] Eosinophil abs 0.04 0.00 - 0.50 K/cumm [facility] Comment:Testing performed by : [address], [place]., [address] Basophil abs 0.05 0.00 - 0.10 K/cumm [facility] Comment:Testing performed by : [address] [address] Neutrophil pct 77.7 % [facility] Comment: Interpretive Data Percent cell count reference ranges are not reported, since discordance with absolute values may lead to misinterpretation of CBC data. Current Interpretive Data was last revised on 2017. Testing performed by: [address] [address] Imm gran pct 0.8 % [facility] Comment: Interpretive Data Percent cell count reference ranges are not reported, since discordance with absolute values may lead to misinterpretation of CBC data. Current Interpretive Data was last revised on 2017. Testing performed by: [address] [address] Lymphocyte pct 8.8 % [facility] Comment: Interpretive Data Percent cell count reference ranges are not reported, since discordance with absolute values may lead to misinterpretation of CBC data. Current Interpretive Data was last revised on 2017. Testing performed by: [address] [address] Monocyte pct 10.2 % [facility] Comment: Interpretive Data Percent cell count reference ranges are not reported, since discordance with absolute values may lead to misinterpretation of CBC data. Current Interpretive Data was last revised on 2017. Testing performed by: [address] [address] Eosinophil pct 1.1 % ETHAN Comment: Interpretive Data Percent cell count reference ranges are not reported, since discordance with absolute values may lead to misinterpretation of CBC data. Current Interpretive Data was last revised on 2017. Testing performed by: [address] [address] Basophil pct 1.4 % ETHAN Comment: Interpretive Data Percent cell count reference ranges are not reported, since discordance with absolute values may lead to misinterpretation of CBC data. Current Interpretive Data was last revised on 2017. Testing performed by: [address] [address] Blood 08/18/2024 9:46 AM CDT 08/18/2024 9:51 AM CDT us Shahid Riddle MD LAB BLOOD ORDERABLES Final R esult [facility] [address] [facility] Department [place] [address] * (ABNORMAL) CBC with auto differential (08/18/2024 9:46 AM CDT) WBC 3.63(L) 3.80 - 9.90 K/cumm Comment:Testing performed by : [address] [address] Hgb 10.9(L) 13.0 - 17.5 g/dL ETHAN Comment:Testing performed by : [address] [address] Hct 34.5(L) 38.9 - 50.3 % ETHAN Comment:Testing performed by : [address] [address] Plt 143(L) 150 - 400 K/cumm ETHAN Comment:Testing performed by : [address] [address] MPV Not Measured 9.1 - 12.3 fL ETHAN Comment:Testing performed by : [address] [address] RBC 4.21(L) 4.30 - 5.80 M/cumm ETHAN Comment:Testing performed by : [address] [address] MCV 81.9 81.3 - 96.4 fL ETHAN Comment:Testing performed by : [address] [address] MCH 25.9(L) 27.1 - 33.3 pg ETHAN Comment:Testing performed by : [address] [address] MCHC 31.6(L) 32.3 - 35.7 g/dL ETHAN Comment:Testing performed by : [address] [address] RDW CV 18.4(H) 11.1 - 14.9 % ETHAN Comment:Testing performed by : [address] [address] RDW SD 55.0(H) 35.7 - 48.1 fL ETHAN Comment:Testing performed by : [address] [address] NRBC abs 0.00 0.00 - 0.01 K/cumm ETHAN Comment:Testing performed by : [address] [address] ANC Prelim 2.82 1.50 - 6.50 K/cumm ETHAN Comment: Interpretive Data The rapid ANC is a preliminary automated count and may vary from the final ANC (Neut Abs) reported in the WBC differential that follows. Current interpretive data was last revised 2024. Testing performed by: [address] [address] Blood 08/18/2024 9:46 AM CDT 08/18/2024 9:51 AM CDT us Shahid Riddle MD LAB BLOOD ORDERABLES Final R esult ETHAN [address] [facility] Department of Laboratories [place], [place] [id number] * Lactate dehydrogenase (LD) (08/18/2024 9:46 AM CDT) Lactate dehydrogenase (LDH) 173 100 - 250 Units/L Comment:Testing performed by : [address] [address] Blood 08/18/2024 9:46 AM CDT 08/18/2024 9:51 AM CDT Shahid Riddle MD LAB BLOOD ORDERABLES Final R esult [facility] [address] [facility] Department of Laboratories [place], [place] [id number] * (ABNORMAL) Comprehensive metabolic panel (08/18/2024 9:46 AM CDT) Pathologist [facility] Sodium 139 135 - 145 mmol/L Comment:Testing performed by : [address] [address] Potassium, pl 4.0 3.3 - 4.9 mmol/L ETHAN Comment:Testing performed by : [address] [address] Chloride 106 97 - 110 mmol/L ETHAN Comment:Testing performed by : [address] [address] CO2 22 22 - 32 mmol/L ETHAN Comment:Testing performed by : [address] [address] Anion gap 11 2 - 15 mmol/L ETHAN Comment:Testing performed by : [address] [address] BUN 16 6 - 25 mg/dL ETHAN Comment:Testing performed by : [address] [address] Creatinine 0.90 0.80 - 1.30 mg/dL ETHAN Comment:Testing performed by : [address] [address] Glucose 154 70 - 199 mg/dL ETHAN Comment: Interpretive Data Fasting glucose >/= 126 mg/dl is diagnostic for diabetes. Fasting is defined as no caloric intake for at least 8 hours. Fasting glucose between 100 mg/dl to 125 mg/dl is diagnostic of prediabetes. In a patient with classic symptoms of hyperglycemia or hyperglycemic crisis, a random glucose >/= 200 mg/dl is diagnostic for diabetes. In the absence of unequivocal hyperglycemia, results should be confirmed by repeat testing. The classification and Diagnosis of Diabetes Diabetes Care 2021; 46: S19-S40. Current interpretive data was last revised 2022. Testing performed by: [address] [address] Calcium 9.2 8.5 - 10.3 mg/dL ETHAN Comment:Testing performed by : [address] [address] Bilirubin, total 0.5 0.1 - 1.2 mg/dL ETHAN Comment:Testing performed by : [address] [address] Protein, pl 5.9(L) 6.5 - 8.5 g/dL ETHAN Comment:Testing performed by : [address] [address] Albumin 4.2 3.5 - 5.0 g/dL ETHAN Comment:Testing performed by : [address] [address] Alk phos 79 40 - 130 Units/L ETHAN Comment:Testing performed by : [address] [address] ALT 33 7 - 55 Units/L ETHAN Comment:Testing performed by : [address] [address] AST 33 10 - 50 Units/L ETHAN Comment:Testing performed by : [address] [address] Blood 08/18/2024 9:46 AM CDT 08/18/2024 9:51 AM CDT us Shahid Riddle MD LAB BLOOD ORDERABLES Final R esult ETHAN [address] [facility] Department of Laboratories [place], [place] [id number] [phone] * PET/CT FDG Skull to Thigh (08/16/2024 11:21 AM CDT) Anatomical Region Laterality Modality N/A Positron Emissio n Tomography (PET) 08/16/2024 1:11 PM CDT Narrative 08/16/2024 1:32 PM CDT EXAM DESCRIPTION: PET/CT FDG SKULL TO THIGH RADIOPHARMACEUTICAL: 11.7 mCi F-18 Fluorodeoxyglucose (FDG) via a right antecubital vein IV site REASON FOR STUDY: Diffuse large B-cell lymphoma. Last reported chemotherapy 07/14/2024. TECHNIQUE: The patient's fasting blood glucose level, measured by glucometer before injection of FDG, was 98 mg/dL. After intravenous administration of FDG, noncontrast CT images were obtained for attenuation correction and for fusion with emission PET images to allow for anatomical localization of PET findings. Emission PET images were then obtained. The reported standardized uptake value maximum (SUVmax) values have been normalized to body weight (SUVbw). The area imaged spanned the region from the skull base to the proximal thighs . The time from injection of FDG to start of imaging was 59 minutes. COMPARISON: PET-CT 04/11/2024 FINDINGS: For reference, the maximum SUV of the ascending thoracic aorta is 3 . The maximum SUV of the liver is 4.1 . Head: Normal FDG uptake is seen in the included portion of the brain. Neck: Focal uptake within the right thyroid with an SUV of 4.1 compared to 3.7 previously. Chest: The previously seen focal uptake in the left anterior mediastinum has an SUV of 2.6 compared to 7.5 previously. The soft tissue in the anterior mediastinum otherwise shows mild diffuse low level activity with an SUV of 2.8 compared to 2.4 previously. No new suspicious hypermetabolic lymphadenopathy in the chest. Previous presumed right upper lobectomy. Minimal bandlike scarring in the left lower lobe shows no significant FDG uptake and is grossly similar. The heart is borderline enlarged. 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 Moderate coronary artery calcification. No pericardial or pleural effusion. Left thyroid nodule measuring 1.4 cm with an SUV of 3.6. According to the White Paper of the ACR Incidental Thyroid Findings Committee, incidentally detected thyroid nodules in patients 35 years, further evaluation with thyroid ultrasound if the nodule is 1.5 cm, without suspicious imaging features, and the patient has normal life expectancy. Right chest port tip terminates at the inferior right atrium. Bandlike soft tissue in the medial left upper chest is once again seen and shows mild FDG uptake with an SUV of 2.8 compared to 6.5 previously. Abdomen and Pelvis: No focal hypermetabolic liver lesion. No calcified gallstones. The spleen is normal. Normal pancreas without focal FDG activity. No focal hypermetabolic adrenal lesion. Photopenic cyst in the interpolar left kidney requires no specific follow-up. No hydronephrosis. Mild cortical scarring in the upper pole of the right kidney is unchanged. Normal gastrointestinal activity is seen. No hypermetabolic lymph nodes in the abdomen or pelvis. Atherosclerotic calcification of the abdominal aorta without aneurysm. Small fat containing left inguinal hernia. Bones: No acute or aggressive appearing osseous lesions. IMPRESSION: Significant interval decrease in the metabolic activity of the soft tissue in the anterior mediastinum. The SUV is 2.6 compared to 7.5 previously (Deauville 2 ). No new suspicious hypermetabolic lymphadenopathy. Focal uptake within the right thyroid with an SUV of 4.1 compared to 3.7 previously. Left thyroid nodule measuring 1.4 cm with an SUV of 3.6. Correlation with thyroid ultrasound is recommended. THIS IS AN ELECTRONICALLY VERIFIED FINAL REPORT 08/16/2024 1:32 PM - Electronically signed by Frank Hanson M.D. LB: SIGRID Report ID: [id number] Reading Location: [id number] Procedure Note Frank Hanson MD - 08/16/2024 EXAM DESCRIPTION: PET/CT FDG SKULL TO THIGH RADIOPHARMACEUTICAL: 11.7 mCi F-18 Fluorodeoxyglucose (FDG) via a right antecubital vein IV site REASON FOR STUDY: Diffuse large B-cell lymphoma. Last reportedchemotherapy 07/14/2024. TECHNIQUE: The patient's fasting blood glucose level, measured byglucometer before injection of FDG, was 98 mg/dL. After intravenous administrationof FDG, noncontrast CT images were obtained for attenuation correction andfor fusion with emission PET images to allow for anatomical localization ofPET findings. Emission PET images were then obtained. The reportedstandardized uptake value maximum (SUVmax) values have been normalized to body weight (SUVbw). The area imaged spanned the region from the skull base to the proximal thighs . The time from injection of FDG to start of imaging was59 minutes. COMPARISON: PET-CT 04/11/2024 FINDINGS: For reference, the maximum SUV of the ascending thoracic aortais 3 . The maximum SUV of the liver is 4.1 . Head: Normal FDG uptake is seen in the included portion of the brain. Neck: Focal uptake within the right thyroid with an SUV of 4.1 compared to 3.7 previously. Chest: The previously seen focal uptake in the left anterior mediastinum has anSUV of 2.6 compared to 7.5 previously. The soft tissue in the anterior mediastinum otherwise shows mild diffuse low level activity with an SUV of2.8 compared to 2.4 previously. No new suspicious hypermetaboliclymphadenopathy in the chest. Previous presumed right upper lobectomy. Minimal bandlike scarring in the left lower lobe shows no significant FDG uptake and is grossly similar.The heart is borderline enlarged. Left ventricular aneurysm is grosslysimilar in appearance. Moderate coronary artery calcification. No pericardial or pleural effusion. Left thyroid nodule measuring 1.4 cm with an SUVof 3.6. According to the White Paper of the ACR Incidental Thyroid Findings Committee, incidentally detected thyroid nodules in patients 35 years,further evaluation with thyroid ultrasound if the nodule is 1.5 cm, withoutsuspicious imaging features, and the patient has normal life expectancy. Rightchest port tip terminates at the inferior right atrium. Bandlike soft tissue inthe medial left upper chest is once again seen and shows mild FDG uptake withan SUV of 2.8 compared to 6.5 previously. Abdomen and Pelvis: No focal hypermetabolic liver lesion. No calcified gallstones. The spleen is normal. Normal pancreas without focal FDG activity. No focal hypermetabolic adrenal lesion. Photopenic cyst in the interpolar leftkidney requires no specific follow-up. No hydronephrosis. Mild corticalscarring in the upper pole of the right kidney is unchanged. Normalgastrointestinal activity is seen. No hypermetabolic lymph nodes in the abdomen orpelvis. Atherosclerotic calcification of the abdominal aorta without aneurysm. Small fat containing left inguinal hernia. Bones: No acute or aggressive appearing osseous lesions. IMPRESSION: Significant interval decrease in the metabolic activity of the softtissue in the anterior mediastinum. The SUV is 2.6 compared to 7.5 previously(Deauville 2 ). No new suspicious hypermetabolic lymphadenopathy. Focal uptake within the right thyroid with an SUV of 4.1 compared to 3.7 previously. Left thyroid nodule measuring 1.4 cm with an SUV of 3.6. Correlation with thyroid ultrasound is recommended. THIS IS AN ELECTRONICALLY VERIFIED FINAL REPORT 08/16/2024 1:32 PM - Electronically signed by Frank Hanson M.D. LB: LB Report ID: [id number] Reading Location: [place] [address] Shahid Riddle MD IMG PET PROCEDURES Final Res ult * POCT glucose (08/16/2024 10:01 AM CDT) [facility] Glucose, POC 98 70 - 199 mg/dL Comment:Testing performed by : [facility], [address] [place] [address]., [address] Blood 08/16/2024 10:0 1 AM CDT 08/16/2024 10:01 AM CDT Shahid Riddle MD LAB POCT ORDERABLES - DEVICE Final Result ETHAN [address] [facility] Department [place] [address] * eGFR (07/14/2024 10:29 AM CDT) [facility] eGFR >90 >=60 mL/min/1. 73 m2 Comment: Interpretive Data Reference Interval Normal >/= 90 mL/min/1.73m2 Mildly decreased* 60 - 89 mL/min/1.73m2 Mildly to moderately decreased 45 - 59 mL/min/1.73m2 Moderately to severely decreased 30 - 44 mL/min/1.73m2 Severely decreased 15 - 29 mL/min/1.73m2 Kidney Failure < 15 mL/min/1.73m2 *Relative to young adult level Estimated glomerular filtration rate is determined by the 2020 CKD-EPI equation recommended by the National Kidney Foundation (A Unifying Approach to GFR Estimation: Recommendations of the NKF-ASK Task Force on Reassessing the Inclusion of Race in Diagnosing Kidney Disease, JASN 202). The CKD-EPI equation should not be used for patients with unstable renal function and has not been validated in children and those over 70. Current interpretive data was last reviewed 2021. Testing performed by: [address] [address] Blood 07/14/2024 10:2 9 AM CDT 07/14/2024 10:34 AM CDT us Brigette Johnson OBIEE ARCHITECT LAB BLOOD ORDERABLES Catherine acevedo Result [facility] [address] Department [place] [address] * (ABNORMAL) Differential, auto (07/14/2024 10:29 AM CDT) Neutrophil abs 7.65(H) 1.50 - 6.50 K/cumm Comment:Testing performed by : [address] [address] Imm gran abs 0.24(H) 0.00 - 0.10 K/cumm ETHAN Comment:Testing performed by : [address] [address] Lymphocyte abs 0.35(L) 0.80 - 3.30 K/cumm ETHAN Comment:Testing performed by : [address] [address] Monocyte abs 0.25 0.20 - 0.80 K/cumm ETHAN Comment:Testing performed by : [address] [address] Eosinophil abs 0.01 0.00 - 0.50 K/cumm ETHAN Comment:Testing performed by : [address] [address] Basophil abs 0.06 0.00 - 0.10 K/cumm ETHAN Comment:Testing performed by : [address] [address] Neutrophil pct 89.4 % [place] Comment: Interpretive Data Percent cell count reference ranges are not reported, since discordance with absolute values may lead to misinterpretation of CBC data. Current Interpretive Data was last revised on 2017. Testing performed by: [address] [address] Imm gran pct 2.8 % ETHAN Comment: Interpretive Data Percent cell count reference ranges are not reported, since discordance with absolute values may lead to misinterpretation of CBC data. Current Interpretive Data was last revised on 2017. Testing performed by: [address] [address] Lymphocyte pct 4.1 % [facility] Comment: Interpretive Data Percent cell count reference ranges are not reported, since discordance with absolute values may lead to misinterpretation of CBC data. Current Interpretive Data was last revised on 2017. Testing performed by: [address] [address] Monocyte pct 2.9 % [facility] Comment: Interpretive Data Percent cell count reference ranges are not reported, since discordance with absolute values may lead to misinterpretation of CBC data. Current Interpretive Data was last revised on 2017. Testing performed by: [address] [address] Eosinophil pct 0.1 % ETHAN Comment: Interpretive Data Percent cell count reference ranges are not reported, since discordance with absolute values may lead to misinterpretation of CBC data. Current Interpretive Data was last revised on 2017. Testing performed by: [address] [address] Basophil pct 0.7 % ETHAN Comment: Interpretive Data Percent cell count reference ranges are not reported, since discordance with absolute values may lead to misinterpretation of CBC data. Current Interpretive Data was last revised on 2017. Testing performed by: [address] [address] Blood 07/14/2024 10:2 9 AM CDT 07/14/2024 10:34 AM CDT us Brigette Johnson OBIEE ARCHITECT LAB BLOOD ORDERABLES Catherine l Result [facility] [address] [facility] Department [place] [address] * (ABNORMAL) CBC with auto differential (07/14/2024 10:29 AM CDT) WBC 8.56 3.80 - 9.90 K/cumm Comment:Testing performed by : [address] [address] Hgb 10.4(L) 13.0 - 17.5 g/dL ETHAN Comment:Testing performed by : [address] [address] Hct 32.3(L) 38.9 - 50.3 % ETHAN Comment:Testing performed by : [address] [address] Plt 178 150 - 400 K/cumm ETHAN Comment:Testing performed by : [address] [address] MPV 11.3 9.1 - 12.3 fL ETHAN Comment:Testing performed by : [address] [address] RBC 3.96(L) 4.30 - 5.80 M/cumm ETHAN Comment:Testing performed by : [address] [address] MCV 81.6 81.3 - 96.4 fL ETHAN Comment:Testing performed by : [address] [address] MCH 26.3(L) 27.1 - 33.3 pg ETHAN Comment:Testing performed by : [address] [address] MCHC 32.2(L) 32.3 - 35.7 g/dL ETHAN SONG Comment:Testing performed by : [address] [address] RDW CV 20.3(H) 11.1 - 14.9 % ETHAN SONG Comment:Testing performed by : [address] [address] RDW SD 57.7(H) 35.7 - 48.1 fL ETHAN Comment:Testing performed by : [address] [address] NRBC abs 0.03(H) 0.00 - 0.01 K/cumm ETHAN Comment:Testing performed by : [address] [address] ANC Prelim 7.65(H) 1.50 - 6.50 K/cumm ETHAN Comment: Interpretive Data The rapid ANC is a preliminary automated count and may vary from the final ANC (Neut Abs) reported in the WBC differential that follows. Current interpretive data was last revised 2024. Testing performed by: [address] [address] Blood 07/14/2024 10:2 9 AM CDT 07/14/2024 10:34 AM CDT us Brigette Johnson OBIEE ARCHITECT LAB BLOOD ORDERABLES Catherine l Result Performing Organization Address [facility] Co de Phone Number [facility] [address] [facility] Department [place] [address] * Lactate dehydrogenase (LD) (07/14/2024 10:29 AM CDT) Lactate dehydrogenase (LDH) 195 100 - 250 Units/L Comment:Testing performed by : [address] [address] Blood 07/14/2024 10:2 9 AM CDT 07/14/2024 10:34 AM CDT Brigette Johnson OBIEE ARCHITECT LAB BLOOD ORDERABLES Catherine l Result ETHAN [address] [facility] Department [place] [address] * (ABNORMAL) Comprehensive metabolic panel (07/14/2024 10:29 AM CDT) Sodium 138 135 - 145 mmol/L Comment:Testing performed by : [address], [place]., [address] Potassium, pl 4.4 3.3 - 4.9 mmol/L ETHAN Comment:Testing performed by : [address], [place]., [address] Chloride 106 97 - 110 mmol/L ETHAN Comment:Testing performed by : [address] [address] CO2 23 22 - 32 mmol/L ETHAN Comment:Testing performed by : [address], [place]., [address] Anion gap 9 2 - 15 mmol/L ETHAN Comment:Testing performed by : [address] [address] BUN 13 6 - 25 mg/dL ETHAN Comment:Testing performed by : [address] [address] Creatinine 0.90 0.80 - 1.30 mg/dL ETHAN Comment:Testing performed by : [address] [address] Glucose 135 70 - 199 mg/dL [facility] Comment: Interpretive Data Fasting glucose >/= 126 mg/dl is diagnostic for diabetes. Fasting is defined as no caloric intake for at least 8 hours. Fasting glucose between 100 mg/dl to 125 mg/dl is diagnostic of prediabetes. In a patient with classic symptoms of hyperglycemia or hyperglycemic crisis, a random glucose >/= 200 mg/dl is diagnostic for diabetes. In the absence of unequivocal hyperglycemia, results should be confirmed by repeat testing. The classification and Diagnosis of Diabetes Diabetes Care 2021; 46: S19-S40. Current interpretive data was last revised 2022. Testing performed by: [address], [place]., [address] Calcium 8.8 8.5 - 10.3 mg/dL ETHAN Comment:Testing performed by : [address] [address] Bilirubin, total 0.3 0.1 - 1.2 mg/dL ETHAN Comment:Testing performed by : [address], [place]., [address] Protein, pl 5.8(L) 6.5 - 8.5 g/dL ETHAN Comment:Testing performed by : [address] [address] Albumin 4.1 3.5 - 5.0 g/dL ETHAN Comment:Testing performed by : [address] [address] Alk phos 81 40 - 130 Units/L ETHAN Comment:Testing performed by : [address] [address] ALT 27 7 - 55 Units/L ETHAN Comment:Testing performed by : [address] [address] AST 23 10 - 50 Units/L ETHAN Comment:Testing performed by : [address] [address] Blood 07/14/2024 10:2 9 AM CDT 07/14/2024 10:34 AM CDT us Brigette Johnson OBIEE ARCHITECT LAB BLOOD ORDERABLES Catherine l Result Performing Organization Address City/State/[facility] Co de Phone Number [facility] [address] [facility] Department [place] [address] * Blood smear review (07/11/2024 10:16 AM CDT) RBC morphology Consistent with RBC Indicies Comment:Testing performed by : [address] [address] Platelet estimate Adequate ETHAN Comment:Testing performed by : [address] [address] Blood 07/11/2024 10:1 6 AM CDT 07/11/2024 10:18 AM CDT Keli Long NP LAB BLOOD ORDERABLES F inal Result Performing Organization Address [facility] Co de Phone Number ETHAN [facility] [place] [address] * eGFR (07/11/2024 10:16 AM CDT) eGFR >90 >=60 mL/min/1. 73 m2 Comment: Interpretive Data Reference Interval Normal >/= 90 mL/min/1.73m2 Mildly decreased* 60 - 89 mL/min/1.73m2 Mildly to moderately decreased 45 - 59 mL/min/1.73m2 Moderately to severely decreased 30 - 44 mL/min/1.73m2 Severely decreased 15 - 29 mL/min/1.73m2 Kidney Failure < 15 mL/min/1.73m2 *Relative to young adult level Estimated glomerular filtration rate is determined by the 2020 CKD-EPI equation recommended by the National Kidney Foundation (A Unifying Approach to GFR Estimation: Recommendations of the NKF-ASK Task Force on Reassessing the Inclusion of Race in Diagnosing Kidney Disease, JASN 2020). The CKD-EPI equation should not be used for patients with unstable renal function and has not been validated in children and those over 70. Current interpretive data was last reviewed 2021. Testing performed by: [address] [address] Blood 07/11/2024 10:1 6 AM CDT 07/11/2024 10:18 AM CDT Keli Long NP LAB BLOOD ORDERABLES F inal Result Performing Organization Address City/[facility]/ZIP Co de Phone Number ETHAN [facility] [place] [address] * (ABNORMAL) Differential, auto (07/11/2024 10:16 AM CDT) Neutrophil abs 6.79(H) 1.50 - 6.50 K/cumm Comment:Testing performed by : [address] [address] Imm gran abs 1.16(H) 0.00 - 0.10 K/cumm [facility] Comment:Testing performed by : [address] [address] Lymphocyte abs 0.89 0.80 - 3.30 K/cumm [facility] Comment:Testing performed by : [address] [address] Monocyte abs 0.96(H) 0.20 - 0.80 K/cumm [facility] Comment:Testing performed by : [address], [place]., [address] Eosinophil abs 0.04 0.00 - 0.50 K/cumm [facility] Comment:Testing performed by : [address] [address] Basophil abs 0.09 0.00 - 0.10 K/cumm [facility] Comment:Testing performed by : [address] [address] Neutrophil pct 68.3 % [facility] Comment: Interpretive Data Percent cell count reference ranges are not reported, since discordance with absolute values may lead to misinterpretation of CBC data. Current Interpretive Data was last revised on 2017. Testing performed by: [address] [address] Imm gran pct 11.7 % [facility] Comment: Interpretive Data Percent cell count reference ranges are not reported, since discordance with absolute values may lead to misinterpretation of CBC data. Current Interpretive Data was last revised on 2017. Testing performed by: [address] [address] Lymphocyte pct 9.0 % [facility] Comment: Interpretive Data Percent cell count reference ranges are not reported, since discordance with absolute values may lead to misinterpretation of CBC data. Current Interpretive Data was last revised on 2017. Testing performed by: [address] [address] Monocyte pct 9.7 % [facility] Comment: Interpretive Data Percent cell count reference ranges are not reported, since discordance with absolute values may lead to misinterpretation of CBC data. Current Interpretive Data was last revised on 2017. Testing performed by: [address] [address] Eosinophil pct 0.4 % ETHAN SONG Comment: Interpretive Data Percent cell count reference ranges are not reported, since discordance with absolute values may lead to misinterpretation of CBC data. Current Interpretive Data was last revised on 2017. Testing performed by: [address] [address] Basophil pct 0.9 % ETHAN Comment: Interpretive Data Percent cell count reference ranges are not reported, since discordance with absolute values may lead to misinterpretation of CBC data. Current Interpretive Data was last revised on 2017. Testing performed by: [address] [address] Blood 07/11/2024 10:1 6 AM CDT 07/11/2024 10:18 AM CDT Keli Long NP LAB BLOOD ORDERABLES F inal Result [facility] Department of Laboratories [place], [place] [id number] * (ABNORMAL) CBC with auto differential (07/11/2024 10:16 AM CDT) WBC 9.93(H) 3.80 - 9.90 K/cumm Comment:Testing performed by : [address] [address] Hgb 10.5(L) 13.0 - 17.5 g/dL ETHAN Comment:Testing performed by : [address] [address] Hct 32.8(L) 38.9 - 50.3 % ETHAN Comment:Testing performed by : [address] [address] Plt 112(L) 150 - 400 K/cumm ETHAN Comment:Testing performed by : [address] [address] MPV Not Measured 9.1 - 12.3 fL ETHAN Comment:Testing performed by : [address] [address] RBC 4.06(L) 4.30 - 5.80 M/cumm ETHAN Comment:Testing performed by : [address] [address] MCV 80.8(L) 81.3 - 96.4 fL ETHAN Comment:Testing performed by : [address] [address] MCH 25.9(L) 27.1 - 33.3 pg ETHAN Comment:Testing performed by : [address] [address] MCHC 32.0(L) 32.3 - 35.7 g/dL ETHAN Comment:Testing performed by : [address] [address] RDW CV 20.2(H) 11.1 - 14.9 % ETHAN Comment:Testing performed by : [address], [address] RDW SD 56.2(H) 35.7 - 48.1 fL ETHAN Comment:Testing performed by : [address] [address] NRBC abs 0.05(H) 0.00 - 0.01 K/cumm ETHAN Comment:Testing performed by : [address], [address] ANC Prelim 6.79(H) 1.50 - 6.50 K/cumm ETHAN Comment: Interpretive Data The rapid ANC is a preliminary automated count and may vary from the final ANC (Neut Abs) reported in the WBC differential that follows. Current interpretive data was last revised 2024. Testing performed by: [address] [address] Blood 07/11/2024 10:1 6 AM CDT 07/11/2024 10:18 AM CDT Narrative ETHAN - 07/11/2024 10:29 AM CDT Mon/Thurs Keli Long NP LAB BLOOD ORDERABLES F inal Result ETHAN [address] [facility] Department [place] [address] * (ABNORMAL) Comprehensive metabolic panel (07/11/2024 10:16 AM CDT) Sodium 139 135 - 145 mmol/L Comment:Testing performed by : [address] [address] Potassium, pl 4.3 3.3 - 4.9 mmol/L ETHAN Comment:Testing performed by : [address] [address] Chloride 106 97 - 110 mmol/L ETHAN Comment:Testing performed by : [address] [address] CO2 23 22 - 32 mmol/L ETHAN Comment:Testing performed by : [address] [address] Anion gap 10 2 - 15 mmol/L ETHAN Comment:Testing performed by : [address] [address] BUN 10 6 - 25 mg/dL ETHAN Comment:Testing performed by : [address] [address] Creatinine 0.80 0.80 - 1.30 mg/dL ETHAN Comment:Testing performed by : [address] [address] Glucose 125 70 - 199 mg/dL ETHAN Comment: Interpretive Data Fasting glucose >/= 126 mg/dl is diagnostic for diabetes. Fasting is defined as no caloric intake for at least 8 hours. Fasting glucose between 100 mg/dl to 125 mg/dl is diagnostic of prediabetes. In a patient with classic symptoms of hyperglycemia or hyperglycemic crisis, a random glucose >/= 200 mg/dl is diagnostic for diabetes. In the absence of unequivocal hyperglycemia, results should be confirmed by repeat testing. The classification and Diagnosis of Diabetes Diabetes Care 202; 46: S19-S40. Current interpretive data was last revised 2022. Testing performed by: [address] [address] Calcium 8.9 8.5 - 10.3 mg/dL ETHAN Comment:Testing performed by : [address] [address] Bilirubin, total 0.2 0.1 - 1.2 mg/dL ETHAN Comment:Testing performed by : [address] [address] Protein, pl 5.9(L) 6.5 - 8.5 g/dL ETHAN Comment:Testing performed by : [address] [address] Albumin 4.0 3.5 - 5.0 g/dL ETHAN Comment:Testing performed by : [address] [address] Alk phos 96 40 - 130 Units/L ETHAN Comment:Testing performed by : [address] [address] ALT 25 7 - 55 Units/L ETHAN Comment:Testing performed by : [address] [address] AST 21 10 - 50 Units/L ETHAN Comment:Testing performed by : [address] [address] Blood 07/11/2024 10:1 6 AM CDT 07/11/2024 10:18 AM CDT Narrative ETHAN - 07/11/2024 10:41 AM CDT Mon/Thurs us Keli Long NP LAB BLOOD ORDERABLES F inal Result ETHAN [address] [facility] Department [place] [address] * (ABNORMAL) Blood smear review (07/07/2024 10:05 AM CDT) RBC morphology Consistent with RBC Indicies Comment:Testing performed by : [address] [address] Platelet estimate Decreased(A) ETHAN Comment:Testing performed by : [facility], [address] [place] [address]., [address] Blood 07/07/2024 10:0 5 AM CDT 07/07/2024 10:10 AM CDT Keli Long NP LAB BLOOD ORDERABLES F inal Result Performing Organization Address [facility] Co de Phone Number ETHAN [address] [facility] [place] [address] * eGFR (07/07/2024 10:05 AM CDT) eGFR >90 >=60 mL/min/1. 73 m2 Comment: Interpretive Data Reference Interval Normal >/= 90 mL/min/1.73m2 Mildly decreased* 60 - 89 mL/min/1.73m2 Mildly to moderately decreased 45 - 59 mL/min/1.73m2 Moderately to severely decreased 30 - 44 mL/min/1.73m2 Severely decreased 15 - 29 mL/min/1.73m2 Kidney Failure < 15 mL/min/1.73m2 *Relative to young adult level Estimated glomerular filtration rate is determined by the 2020 CKD-EPI equation recommended by the National Kidney Foundation (A Unifying Approach to GFR Estimation: Recommendations of the NKF-ASK Task Force on Reassessing the Inclusion of Race in Diagnosing Kidney Disease, JASN 2020). The CKD-EPI equation should not be used for patients with unstable renal function and has not been validated in children and those over 70. Current interpretive data was last reviewed 2021. Testing performed by: [facility], [address] [place] [address]., [address] Blood 07/07/2024 10:0 5 AM CDT 07/07/2024 10:10 AM CDT Keli Long NP LAB BLOOD ORDERABLES F inal Result Performing Organization Address City/[facility]/ZIP Co de Phone Number [place] [phone] [facility] [place] [address] * (ABNORMAL) Differential, auto (07/07/2024 10:05 AM CDT) Neutrophil abs 5.08 1.50 - 6.50 K/cumm Comment:Testing performed by : [address] [address] Imm gran abs 1.57(H) 0.00 - 0.10 K/cumm ETHAN Comment:Testing performed by : [address] [address] Lymphocyte abs 0.70(L) 0.80 - 3.30 K/cumm ETHAN Comment:Testing performed by : [address] [address] Monocyte abs 0.81(H) 0.20 - 0.80 K/cumm [facility] Comment:Testing performed by : [address] [address] Eosinophil abs 0.03 0.00 - 0.50 K/cumm [facility] Comment:Testing performed by : [address] [address] Basophil abs 0.06 0.00 - 0.10 K/cumm [facility] Comment:Testing performed by : [address] [address] Neutrophil pct 61.6 % [facility] Comment: Interpretive Data Percent cell count reference ranges are not reported, since discordance with absolute values may lead to misinterpretation of CBC data. Current Interpretive Data was last revised on 2017. Testing performed by: [address] [address] Imm gran pct 19.0 % [facility] Comment: Interpretive Data Percent cell count reference ranges are not reported, since discordance with absolute values may lead to misinterpretation of CBC data. Current Interpretive Data was last revised on 2017. Testing performed by: [address] [address] Lymphocyte pct 8.5 % [facility] Comment: Interpretive Data Percent cell count reference ranges are not reported, since discordance with absolute values may lead to misinterpretation of CBC data. Current Interpretive Data was last revised on 2017. Testing performed by: [address] [address] Monocyte pct 9.8 % ETHAN Comment: Interpretive Data Percent cell count reference ranges are not reported, since discordance with absolute values may lead to misinterpretation of CBC data. Current Interpretive Data was last revised on 2017. Testing performed by: [address] [address] Eosinophil pct 0.4 % ETHAN Comment: Interpretive Data Percent cell count reference ranges are not reported, since discordance with absolute values may lead to misinterpretation of CBC data. Current Interpretive Data was last revised on 2017. Testing performed by: [address] [address] Basophil pct 0.7 % ETHAN Comment: Interpretive Data Percent cell count reference ranges are not reported, since discordance with absolute values may lead to misinterpretation of CBC data. Current Interpretive Data was last revised on 2017. Testing performed by: [address] [address] Blood 07/07/2024 10:0 5 AM CDT 07/07/2024 10:10 AM CDT us Keli Long OBIEE ARCHITECT LAB BLOOD ORDERABLES F inal Result [facility] [address] [facility] Department [place] [address] * (ABNORMAL) CBC with auto differential (07/07/2024 10:05 AM CDT) WBC 8.25 3.80 - 9.90 K/cumm Comment:Testing performed by : [address] [address] Hgb 10.1(L) 13.0 - 17.5 g/dL ETHAN Comment:Testing performed by : [address] [address] Hct 31.3(L) 38.9 - 50.3 % ETHAN Comment:Testing performed by : [address] [address] Plt 55(L) 150 - 400 K/cumm ETHAN Comment:Testing performed by : [address] [address] MPV Not Measured 9.1 - 12.3 fL ETHAN Comment:Testing performed by : [address] [address] RBC 3.86(L) 4.30 - 5.80 M/cumm ETHAN Comment:Testing performed by : [address] [address] MCV 81.1(L) 81.3 - 96.4 fL ETHAN Comment:Testing performed by : [address] [address] MCH 26.2(L) 27.1 - 33.3 pg ETHAN Comment:Testing performed by : [address] [address] MCHC 32.3 32.3 - 35.7 g/dL ETHAN Comment:Testing performed by : [address] [address] RDW CV 20.5(H) 11.1 - 14.9 % ETHAN Comment:Testing performed by : [address] [address] RDW SD 57.9(H) 35.7 - 48.1 fL ETHAN Comment:Testing performed by : [address] [address] NRBC abs 0.09(H) 0.00 - 0.01 K/cumm ETHAN Comment:Testing performed by : [address] [address] ANC Prelim 5.08 1.50 - 6.50 K/cumm ETHAN Comment: Interpretive Data The rapid ANC is a preliminary automated count and may vary from the final ANC (Neut Abs) reported in the WBC differential that follows. Current interpretive data was last revised 2024. Testing performed by: [address] [place] [address] Blood 07/07/2024 10:0 5 AM CDT 07/07/2024 10:10 AM CDT Narrative ETHAN - 07/07/2024 10:19 AM CDT Mon/Thurs Keli Long OBIEE ARCHITECT LAB BLOOD ORDERABLES F inal Result ETHAN [address] [facility] Department [place] [address] * (ABNORMAL) Comprehensive metabolic panel (07/07/2024 10:05 AM CDT) Sodium 138 135 - 145 mmol/L Comment:Testing performed by : [address] [address] Potassium, pl 4.1 3.3 - 4.9 mmol/L ETHAN Comment:Testing performed by : [address] [address] Chloride 103 97 - 110 mmol/L ETHAN Comment:Testing performed by : [address] [address] CO2 24 22 - 32 mmol/L ETHAN Comment:Testing performed by : [address] [address] Anion gap 11 2 - 15 mmol/L ETHAN Comment:Testing performed by : [address] [address] BUN 10 6 - 25 mg/dL ETHAN Comment:Testing performed by : [address] [address] Creatinine 0.90 0.80 - 1.30 mg/dL ETHAN Comment:Testing performed by : [address] [address] Glucose 141 70 - 199 mg/dL ETHAN Comment: Interpretive Data Fasting glucose >/= 126 mg/dl is diagnostic for diabetes. Fasting is defined as no caloric intake for at least 8 hours. Fasting glucose between 100 mg/dl to 125 mg/dl is diagnostic of prediabetes. In a patient with classic symptoms of hyperglycemia or hyperglycemic crisis, a random glucose >/= 200 mg/dl is diagnostic for diabetes. In the absence of unequivocal hyperglycemia, results should be confirmed by repeat testing. The classification and Diagnosis of Diabetes Diabetes Care 202; 46: S19-S40. Current interpretive data was last revised 2022. Testing performed by: [address] [address] Calcium 8.9 8.5 - 10.3 mg/dL ETHAN Comment:Testing performed by : [address] [address] Bilirubin, total 0.2 0.1 - 1.2 mg/dL ETHAN Comment:Testing performed by : [address] [address] Protein, pl 5.7(L) 6.5 - 8.5 g/dL ETHAN Comment:Testing performed by : [address] [address] Albumin 3.8 3.5 - 5.0 g/dL ETHAN Comment:Testing performed by : [address] [address] Alk phos 91 40 - 130 Units/L ETHAN Comment:Testing performed by : [address] [address] ALT 28 7 - 55 Units/L ETHAN Comment:Testing performed by : [address] [address] AST 23 10 - 50 Units/L ETHAN Comment:Testing performed by : [address] [address] Blood 07/07/2024 10:0 5 AM CDT 07/07/2024 10:10 AM CDT [facility]ative [facility] 07/07/2024 10:31 AM CDT Mon/Thurs us Keli Long NP LAB BLOOD ORDERABLES F inal Result ETHAN [address] [facility] Department [place] [address] * Immature platelet fraction (07/04/2024 10:21 AM CDT) [facility] IPF 9.0 1.6 - 10.1 % Comment:Testing performed by : [address] [address] Blood 07/04/2024 10:2 1 AM CDT 07/04/2024 10:25 AM CDT Keli Long NP LAB BLOOD ORDERABLES F inal Result Performing Organization Address [facility] Co de Phone Number [facility] [address] [facility] [place] [address] * (ABNORMAL) Blood smear review (07/04/2024 10:21 AM CDT) [facility] RBC morphology Consistent with RBC Indicies Comment:Testing performed by : [address] [address] Platelet estimate Decreased(A) ETHAN Comment:Testing performed by : [address] [address] Blood 07/04/2024 10:2 1 AM CDT 07/04/2024 10:25 AM CDT Keli Long NP LAB BLOOD ORDERABLES F inal Result Performing Organization Address [facility] Co de Phone Number [place] [id number] [facility] [place] [address] * eGFR (07/04/2024 10:21 AM CDT) [facility] eGFR >90 >=60 mL/min/1. 73 m2 Comment: Interpretive Data Reference Interval Normal >/= 90 mL/min/1.73m2 Mildly decreased* 60 - 89 mL/min/1.73m2 Mildly to moderately decreased 45 - 59 mL/min/1.73m2 Moderately to severely decreased 30 - 44 mL/min/1.73m2 Severely decreased 15 - 29 mL/min/1.73m2 Kidney Failure < 15 mL/min/1.73m2 *Relative to young adult level Estimated glomerular filtration rate is determined by the 2020 CKD-EPI equation recommended by the National Kidney Foundation (A Unifying Approach to GFR Estimation: Recommendations of the NKF-ASK Task Force on Reassessing the Inclusion of Race in Diagnosing Kidney Disease, JASN 2020). The CKD-EPI equation should not be used for patients with unstable renal function and has not been validated in children and those over 70. Current interpretive data was last reviewed 2021. Testing performed by: [address] [address] Blood 07/04/2024 10:2 1 AM CDT 07/04/2024 10:25 AM CDT us Keli Long NP LAB BLOOD ORDERABLES F inal Result ETHAN [facility] Department [place] [address] * (ABNORMAL) Differential, auto (07/04/2024 10:21 AM CDT) Neutrophil abs 0.07(C) 1.50 - 6.50 K/cumm Comment: This result has been called to Mishel Smith RN Epic Secure Chat by [email or web address] on 07/04/2024 10:35:12, and has been read back. Testing performed by: [address] [address] Imm gran abs 0.01 0.00 - 0.10 K/cumm ETHAN Comment:Testing performed by : [address] [address] Lymphocyte abs 0.30(L) 0.80 - 3.30 K/cumm ETHAN SONG Comment:Testing performed by : [address] [address] Monocyte abs 0.19(L) 0.20 - 0.80 K/cumm ETHAN Comment:Testing performed by : [address] [address] Eosinophil abs 0.01 0.00 - 0.50 K/cumm [facility] Comment:Testing performed by : [address] [address] Basophil abs 0.01 0.00 - 0.10 K/cumm [facility] Comment:Testing performed by : [address] [address] Neutrophil pct 11.9 % [facility] Comment: Interpretive Data Percent cell count reference ranges are not reported, since discordance with absolute values may lead to misinterpretation of CBC data. Current Interpretive Data was last revised on 2017. Testing performed by: [address] [address] Imm gran pct 1.7 % [facility] Comment: Interpretive Data Percent cell count reference ranges are not reported, since discordance with absolute values may lead to misinterpretation of CBC data. Current Interpretive Data was last revised on 2017. Testing performed by: [address] [address] Lymphocyte pct 50.8 % [facility] Comment: Interpretive Data Percent cell count reference ranges are not reported, since discordance with absolute values may lead to misinterpretation of CBC data. Current Interpretive Data was last revised on 2017. Testing performed by: [address] [address] Monocyte pct 32.2 % [facility] Comment: Interpretive Data Percent cell count reference ranges are not reported, since discordance with absolute values may lead to misinterpretation of CBC data. Current Interpretive Data was last revised on 2017. Testing performed by: [address] [address] Eosinophil pct 1.7 % [facility] Comment: Interpretive Data Percent cell count reference ranges are not reported, since discordance with absolute values may lead to misinterpretation of CBC data. Current Interpretive Data was last revised on 2017. Testing performed by: [address] [address] Basophil pct 1.7 % [facility] Comment: Interpretive Data Percent cell count reference ranges are not reported, since discordance with absolute values may lead to misinterpretation of CBC data. Current Interpretive Data was last revised on 2017. Testing performed by: [address] [address] Blood 07/04/2024 10:2 1 AM CDT 07/04/2024 10:25 AM CDT Keli Long NP LAB BLOOD ORDERABLES F inal Result [facility] [address] [facility] Department [place] [address] * (ABNORMAL) CBC with auto differential (07/04/2024 10:21 AM CDT) WBC 0.59(C) 3.80 - 9.90 K/cumm Comment: This result has been called to Mishel Smith RN Epic Secure Chat by [email or web address] on 07/04/2024 10:35:12, and has been read back. Testing performed by: [address] [address] Hgb 9.7(L) 13.0 - 17.5 g/dL ETHAN Comment:Testing performed by : [address] [address] Hct 29.9(L) 38.9 - 50.3 % ETHAN Comment:Testing performed by : [address] [address] Plt 40(L) 150 - 400 K/cumm ETHAN Comment:Testing performed by : [address] [address] MPV Not Measured 9.1 - 12.3 fL ETHAN Comment:Testing performed by : [address] [address] RBC 3.75(L) 4.30 - 5.80 M/cumm ETHAN Comment:Testing performed by : [address] [address] MCV 79.7(L) 81.3 - 96.4 fL ETHAN Comment:Testing performed by : [address] [place]., [address] MCH 25.9(L) 27.1 - 33.3 pg ETHAN Comment:Testing performed by : [address] [address] MCHC 32.4 32.3 - 35.7 g/dL ETHAN SONG Comment:Testing performed by : [address] [address] RDW CV 18.5(H) 11.1 - 14.9 % ETHAN Comment:Testing performed by : [address] [address] RDW SD 53.1(H) 35.7 - 48.1 fL ETHAN Comment:Testing performed by : [address] [address] NRBC abs 0.00 0.00 - 0.01 K/cumm ETHAN Comment:Testing performed by : [address] [address] ANC Prelim 0.07(L) 1.50 - 6.50 K/cumm ETHAN Comment: Interpretive Data The rapid ANC is a preliminary automated count and may vary from the final ANC (Neut Abs) reported in the WBC differential that follows. Current interpretive data was last revised 2024. Testing performed by: [address] [address] Blood 07/04/2024 10:2 1 AM CDT 07/04/2024 10:25 AM CDT Narrative ETHAN - 07/04/2024 10:35 AM CDT Mon/Thurs us Keli Long NP LAB BLOOD ORDERABLES F inal Result ETHAN [address] [facility] Department [place] [address] * (ABNORMAL) Comprehensive metabolic panel (07/04/2024 10:21 AM CDT) [facility] Sodium 137 135 - 145 mmol/L Comment:Testing performed by : [address] [address] Potassium, pl 4.5 3.3 - 4.9 mmol/L [facility] Comment:Testing performed by : [address] [address] Chloride 104 97 - 110 mmol/L ETHAN Comment:Testing performed by : [address], [place]., [address] CO2 25 22 - 32 mmol/L [facility] Comment:Testing performed by : [address], [place]., [address] Anion gap 8 2 - 15 mmol/L [facility] Comment:Testing performed by : [address] [address] BUN 11 6 - 25 mg/dL [facility] Comment:Testing performed by : [address], [place]., [address] Creatinine 0.70(L) 0.80 - 1.30 mg/dL [facility] Comment:Testing performed by : [address] [address] Glucose 122 70 - 199 mg/dL [facility] Comment: Interpretive Data Fasting glucose >/= 126 mg/dl is diagnostic for diabetes. Fasting is defined as no caloric intake for at least 8 hours. Fasting glucose between 100 mg/dl to 125 mg/dl is diagnostic of prediabetes. In a patient with classic symptoms of hyperglycemia or hyperglycemic crisis, a random glucose >/= 200 mg/dl is diagnostic for diabetes. In the absence of unequivocal hyperglycemia, results should be confirmed by repeat testing. The classification and Diagnosis of Diabetes Diabetes Care 202; 46: S19-S40. Current interpretive data was last revised 2022. Testing performed by: [address] [address] Calcium 9.2 8.5 - 10.3 mg/dL ETHAN Comment:Testing performed by : [address] [address] Bilirubin, total 0.3 0.1 - 1.2 mg/dL [facility] Comment:Testing performed by : [address] [address] Protein, pl 5.6(L) 6.5 - 8.5 g/dL ETHAN Comment:Testing performed by : [address] [address] Albumin 3.8 3.5 - 5.0 g/dL ETHAN Comment:Testing performed by : [address] [address] Alk phos 89 40 - 130 Units/L ETHAN Comment:Testing performed by : [address] [address] ALT 22 7 - 55 Units/L ETHAN Comment:Testing performed by : [address], [address] AST 14 10 - 50 Units/L ETHAN Comment:Testing performed by : [address] [address] Blood 07/04/2024 10:2 1 AM CDT 07/04/2024 10:25 AM CDT Narrative ETHAN - 07/04/2024 10:46 AM CDT Mon/Thurs Keli Long NP LAB BLOOD ORDERABLES F inal Result Performing Organization Address City/[facility] Co de Phone Number [facility] [address] [facility] [place] [address] * Blood smear review (06/30/2024 8:29 AM CDT) RBC morphology Consistent with RBC Indicies Comment:Testing performed by : [address] [address] Platelet estimate Adequate ETHAN Comment:Testing performed by : [address] [address] Blood 06/30/2024 8:29 AM CDT 06/30/2024 8:45 AM CDT Keli Long NP LAB BLOOD ORDERABLES F inal Result Performing Organization Address [facility] de Phone Number [facility] [address] Department [place] [address] * eGFR (06/30/2024 8:29 AM CDT) eGFR >90 >=60 mL/min/1. 73 m2 Comment: Interpretive Data Reference Interval Normal >/= 90 mL/min/1.73m2 Mildly decreased* 60 - 89 mL/min/1.73m2 Mildly to moderately decreased 45 - 59 mL/min/1.73m2 Moderately to severely decreased 30 - 44 mL/min/1.73m2 Severely decreased 15 - 29 mL/min/1.73m2 Kidney Failure < 15 mL/min/1.73m2 *Relative to young adult level Estimated glomerular filtration rate is determined by the 2020 CKD-EPI equation recommended by the National Kidney Foundation (A Unifying Approach to GFR Estimation: Recommendations of the NKF-ASK Task Force on Reassessing the Inclusion of Race in Diagnosing Kidney Disease, JASN 2020). The CKD-EPI equation should not be used for patients with unstable renal function and has not been validated in children and those over 70. Current interpretive data was last reviewed 2021. Testing performed by: [address] [address] Blood 06/30/2024 8:29 AM CDT 06/30/2024 8:41 AM CDT Keli Long NP LAB BLOOD ORDERABLES F inal Result [facility] [address] [facility] Department [place] [address] * (ABNORMAL) Differential, auto (06/30/2024 8:29 AM CDT) Pathologist [facility] Neutrophil abs 45.59(H) 1.50 - 6.50 K/cumm Comment:Testing performed by : [address] [address] Imm gran abs 5.62(H) 0.00 - 0.10 K/cumm ETHAN SONG Comment:Testing performed by : [address] [address] Lymphocyte abs 0.32(L) 0.80 - 3.30 K/cumm [facility] Comment:Testing performed by : [address] [address] Monocyte abs 0.03(L) 0.20 - 0.80 K/cumm [facility] Comment:Testing performed by : [address] [address] Eosinophil abs 0.02 0.00 - 0.50 K/cumm [facility] Comment:Testing performed by : [address], [place]., [address] Basophil abs 0.18(H) 0.00 - 0.10 K/cumm [facility] Comment:Testing performed by : [address] [address] Neutrophil pct 88.1 % [facility] Comment: Interpretive Data Percent cell count reference ranges are not reported, since discordance with absolute values may lead to misinterpretation of CBC data. Current Interpretive Data was last revised on 2017. Testing performed by: [address] [address] Imm gran pct 10.9 % [facility] Comment: Interpretive Data Percent cell count reference ranges are not reported, since discordance with absolute values may lead to misinterpretation of CBC data. Current Interpretive Data was last revised on 2017. Testing performed by: [address] [address] Lymphocyte pct 0.6 % [facility] Comment: Interpretive Data Percent cell count reference ranges are not reported, since discordance with absolute values may lead to misinterpretation of CBC data. Current Interpretive Data was last revised on 2017. Testing performed by: [address] [address] Monocyte pct 0.1 % [facility] Comment: Interpretive Data Percent cell count reference ranges are not reported, since discordance with absolute values may lead to misinterpretation of CBC data. Current Interpretive Data was last revised on 2017. Testing performed by: [address] [address] Eosinophil pct 0.0 % [facility] SONG Comment: Interpretive Data Percent cell count reference ranges are not reported, since discordance with absolute values may lead to misinterpretation of CBC data. Current Interpretive Data was last revised on 2017. Testing performed by: [address] [address] Basophil pct 0.3 % ETHAN SONG Comment: Interpretive Data Percent cell count reference ranges are not reported, since discordance with absolute values may lead to misinterpretation of CBC data. Current Interpretive Data was last revised on 2017. Testing performed by: [address] [address] Blood 06/30/2024 8:29 AM CDT 06/30/2024 8:45 AM CDT us Keli Long NP LAB BLOOD ORDERABLES F inal Result ETHAN SONG [facility]0 [facility] Department [place] [address] * (ABNORMAL) CBC with auto differential (06/30/2024 8:29 AM CDT) WBC 51.76(C) 3.80 - 9.90 K/cumm Comment: This result has been called to Mercy Finch RN (secure messaging) by [email or web address] on 06/30/2024 09:00:37, and has been read back. Testing performed by: [address] [address] Hgb 10.1(L) 13.0 - 17.5 g/dL ETHAN SONG Comment:Testing performed by : [address] [address] Hct 30.5(L) 38.9 - 50.3 % ETHAN SONG Comment:Testing performed by : [address] [address] Plt 137(L) 150 - 400 K/cumm ETHAN SONG Comment:Testing performed by : [address] [address] MPV 11.3 9.1 - 12.3 fL ETHAN Comment:Testing performed by : [facility], [address] [place] [address]., [address] RBC 3.81(L) 4.30 - 5.80 M/cumm ETHAN Comment:Testing performed by : [address] [address] MCV 80.1(L) 81.3 - 96.4 fL ETHAN Comment:Testing performed by : [address] [address] MCH 26.5(L) 27.1 - 33.3 pg ETHAN Comment:Testing performed by : [address] [address] MCHC 33.1 32.3 - 35.7 g/dL ETHAN Comment:Testing performed by : [address] [address] RDW CV 19.0(H) 11.1 - 14.9 % ETHAN Comment:Testing performed by : [address] [address] RDW SD 54.3(H) 35.7 - 48.1 fL ETHAN Comment:Testing performed by : [address] [address] NRBC abs 0.00 0.00 - 0.01 K/cumm ETHAN Comment:Testing performed by : [address] [address] ANC Prelim 45.59(H) 1.50 - 6.50 K/cumm ETHAN Comment: Interpretive Data The rapid ANC is a preliminary automated count and may vary from the final ANC (Neut Abs) reported in the WBC differential that follows. Current interpretive data was last revised 2024. Testing performed by: [address] [address] Blood 06/30/2024 8:29 AM CDT 06/30/2024 8:45 AM CDT Narrative ETHAN - 06/30/2024 9:01 AM CDT Mon/Thurs Keli Long NP LAB BLOOD ORDERABLES F inal Result [facility] [address] [facility] Department [place] [address] * (ABNORMAL) Comprehensive metabolic panel (06/30/2024 8:29 AM CDT) Sodium 138 135 - 145 mmol/L Comment:Testing performed by : [address] [address] Potassium, pl 3.6 3.3 - 4.9 mmol/L ETHAN Comment:Testing performed by : [address] [address] Chloride 106 97 - 110 mmol/L ETHAN Comment:Testing performed by : [address] [address] CO2 24 22 - 32 mmol/L ETHAN Comment:Testing performed by : [address] [address] Anion gap 8 2 - 15 mmol/L ETHAN Comment:Testing performed by : [address] [address] BUN 19 6 - 25 mg/dL ETHAN Comment:Testing performed by : [address] [address] Creatinine 0.70(L) 0.80 - 1.30 mg/dL ETHAN Comment:Testing performed by : [address] [address] Glucose 149 70 - 199 mg/dL ETHAN Comment: Interpretive Data Fasting glucose >/= 126 mg/dl is diagnostic for diabetes. Fasting is defined as no caloric intake for at least 8 hours. Fasting glucose between 100 mg/dl to 125 mg/dl is diagnostic of prediabetes. In a patient with classic symptoms of hyperglycemia or hyperglycemic crisis, a random glucose >/= 200 mg/dl is diagnostic for diabetes. In the absence of unequivocal hyperglycemia, results should be confirmed by repeat testing. The classification and Diagnosis of Diabetes Diabetes Care 202; 46: S19-S40. Current interpretive data was last revised 2022. Testing performed by: [address] [address] Calcium 8.4(L) 8.5 - 10.3 mg/dL ETHAN Comment:Testing performed by : [address] [address] Bilirubin, total 0.4 0.1 - 1.2 mg/dL ETHAN Comment:Testing performed by : [address] [address] Protein, pl 4.9(L) 6.5 - 8.5 g/dL ETHAN Comment:Testing performed by : [address] [address] Albumin 3.6 3.5 - 5.0 g/dL ETHAN Comment:Testing performed by : [address], [address] Alk phos 89 40 - 130 Units/L ETHAN Comment:Testing performed by : [address], [address] ALT 20 7 - 55 Units/L ETHAN Comment:Testing performed by : [address] [address] AST 15 10 - 50 Units/L ETHAN Comment:Testing performed by : [address] [address] Blood 06/30/2024 8:29 AM CDT 06/30/2024 8:41 AM CDT Narrative ETHAN - 06/30/2024 9:04 AM CDT Mon/Thurs us Keli Long [employer] LAB BLOOD ORDERABLES F inal Result ETHAN [address] [facility] Department [place] [address] * eGFR (06/27/2024 11:18 AM CDT) eGFR >90 >=60 mL/min/1. 73 m2 Comment: Interpretive Data Reference Interval Normal >/= 90 mL/min/1.73m2 Mildly decreased* 60 - 89 mL/min/1.73m2 Mildly to moderately decreased 45 - 59 mL/min/1.73m2 Moderately to severely decreased 30 - 44 mL/min/1.73m2 Severely decreased 15 - 29 mL/min/1.73m2 Kidney Failure < 15 mL/min/1.73m2 *Relative to young adult level Estimated glomerular filtration rate is determined by the 2020 CKD-EPI equation recommended by the National Kidney Foundation (A Unifying Approach to GFR Estimation: Recommendations of the NKF-ASK Task Force on Reassessing the Inclusion of Race in Diagnosing Kidney Disease, JASN 2020). The CKD-EPI equation should not be used for patients with unstable renal function and has not been validated in children and those over 70. Current interpretive data was last reviewed 2021. Testing performed by: [address] [address] Blood 06/27/2024 11:1 8 AM CDT 06/27/2024 11:22 AM CDT Keli Long NP LAB BLOOD ORDERABLES F inal Result [facility] [address] [facility] Department [place] [address] * (ABNORMAL) Differential, auto (06/27/2024 11:18 AM CDT) Neutrophil abs 4.67 1.50 - 6.50 K/cumm Comment:Testing performed by : [address] [address] Imm gran abs 0.07 0.00 - 0.10 K/cumm ETHAN Comment:Testing performed by : [address] [address] Lymphocyte abs 0.20(L) 0.80 - 3.30 K/cumm ETHAN Comment:Testing performed by : [address] [address] Monocyte abs 0.17(L) 0.20 - 0.80 K/cumm ETHAN Comment:Testing performed by : [address] [address] Eosinophil abs 0.00 0.00 - 0.50 K/cumm [facility] Comment:Testing performed by : [address] [address] Basophil abs 0.00 0.00 - 0.10 K/cumm [facility] Comment:Testing performed by : [address] [address] Neutrophil pct 91.4 % [facility] Comment: Interpretive Data Percent cell count reference ranges are not reported, since discordance with absolute values may lead to misinterpretation of CBC data. Current Interpretive Data was last revised on 2017. Testing performed by: [address] [address] Imm gran pct 1.4 % [facility] Comment: Interpretive Data Percent cell count reference ranges are not reported, since discordance with absolute values may lead to misinterpretation of CBC data. Current Interpretive Data was last revised on 2017. Testing performed by: [address] [address] Lymphocyte pct 3.9 % [facility] Comment: Interpretive Data Percent cell count reference ranges are not reported, since discordance with absolute values may lead to misinterpretation of CBC data. Current Interpretive Data was last revised on 2017. Testing performed by: [address] [address] Monocyte pct 3.3 % [facility] Comment: Interpretive Data Percent cell count reference ranges are not reported, since discordance with absolute values may lead to misinterpretation of CBC data. Current Interpretive Data was last revised on 2017. Testing performed by: [address] [address] Eosinophil pct 0.0 % [facility] Comment: Interpretive Data Percent cell count reference ranges are not reported, since discordance with absolute values may lead to misinterpretation of CBC data. Current Interpretive Data was last revised on 2017. Testing performed by: [address] [address] Basophil pct 0.0 % [facility] Comment: Interpretive Data Percent cell count reference ranges are not reported, since discordance with absolute values may lead to misinterpretation of CBC data. Current Interpretive Data was last revised on 2017. Testing performed by: [address] [address] Blood 06/27/2024 11:1 8 AM CDT 06/27/2024 11:22 AM CDT Keli Long NP LAB BLOOD ORDERABLES F inal Result [facility] [address] [facility] Department [place] [address] * (ABNORMAL) CBC with auto differential (06/27/2024 11:18 AM CDT) WBC 5.11 3.80 - 9.90 K/cumm Comment:Testing performed by : [address] [address] Hgb 10.4(L) 13.0 - 17.5 g/dL ETHAN Comment:Testing performed by : [address] [address] Hct 31.6(L) 38.9 - 50.3 % ETHAN Comment:Testing performed by : [address] [address] Plt 221 150 - 400 K/cumm ETHAN Comment:Testing performed by : [address] [address] MPV 11.3 9.1 - 12.3 fL ETHAN Comment:Testing performed by : [address] [address] RBC 3.98(L) 4.30 - 5.80 M/cumm ETHAN Comment:Testing performed by : [address] [address] MCV 79.4(L) 81.3 - 96.4 fL ETHAN Comment:Testing performed by : [address] [address] MCH 26.1(L) 27.1 - 33.3 pg ETHAN Comment:Testing performed by : [address] [address] MCHC 32.9 32.3 - 35.7 g/dL ETHAN Comment:Testing performed by : [address] [address] RDW CV 18.5(H) 11.1 - 14.9 % ETHAN Comment:Testing performed by : [address] [address] RDW SD 52.3(H) 35.7 - 48.1 fL ETHAN Comment:Testing performed by : [address] [address] NRBC abs 0.00 0.00 - 0.01 K/cumm ETHAN Comment:Testing performed by : [address] [address] ANC Prelim 4.67 1.50 - 6.50 K/cumm ETHAN Comment: Interpretive Data The rapid ANC is a preliminary automated count and may vary from the final ANC (Neut Abs) reported in the WBC differential that follows. Current interpretive data was last revised 2024. Testing performed by: [address] [address] Blood 06/27/2024 11:1 8 AM CDT 06/27/2024 11:22 AM CDT Narrative ETHAN - 06/27/2024 11:25 AM CDT Mon/Thurs Keli Long OBIEE ARCHITECT LAB BLOOD ORDERABLES F inal Result [facility] [address] [facility] Department [place] [address] * (ABNORMAL) Comprehensive metabolic panel (06/27/2024 11:18 AM CDT) Sodium 138 135 - 145 mmol/L Comment:Testing performed by : [address] [address] Potassium, pl 3.7 3.3 - 4.9 mmol/L ETHAN Comment:Testing performed by : [address] [address] Chloride 103 97 - 110 mmol/L ETHAN Comment:Testing performed by : [address] [address] CO2 25 22 - 32 mmol/L ETHAN Comment:Testing performed by : [address], [place]., [address] Anion gap 10 2 - 15 mmol/L ETHAN Comment:Testing performed by : [address], [place]., [address] BUN 29(H) 6 - 25 mg/dL [facility] Comment:Testing performed by : [address], [place]., [address] Creatinine 0.70(L) 0.80 - 1.30 mg/dL ETHAN Comment:Testing performed by : [address], [place]., [address] Glucose 158 70 - 199 mg/dL ETHAN Comment: Interpretive Data Fasting glucose >/= 126 mg/dl is diagnostic for diabetes. Fasting is defined as no caloric intake for at least 8 hours. Fasting glucose between 100 mg/dl to 125 mg/dl is diagnostic of prediabetes. In a patient with classic symptoms of hyperglycemia or hyperglycemic crisis, a random glucose >/= 200 mg/dl is diagnostic for diabetes. In the absence of unequivocal hyperglycemia, results should be confirmed by repeat testing. The classification and Diagnosis of Diabetes Diabetes Care 2021; 46: S19-S40. Current interpretive data was last revised 2022. Testing performed by: [address] [address] Calcium 8.7 8.5 - 10.3 mg/dL ETHAN Comment:Testing performed by : [address] [address] Bilirubin, total 0.3 0.1 - 1.2 mg/dL ETHAN Comment:Testing performed by : [address] [address] Protein, pl 5.4(L) 6.5 - 8.5 g/dL ETHAN Comment:Testing performed by : [address] [address] Albumin 3.9 3.5 - 5.0 g/dL ETHAN Comment:Testing performed by : [address] [address] Alk phos 57 40 - 130 Units/L ETHAN Comment:Testing performed by : [address] [address] ALT 24 7 - 55 Units/L ETHAN Comment:Testing performed by : [address], [address] AST 17 10 - 50 Units/L ETHAN Comment:Testing performed by : [address] [address] Blood 06/27/2024 11:1 8 AM CDT 06/27/2024 11:22 AM CDT Narrative [facility] - 06/27/2024 11:44 AM CDT Mon/Thurs Keli Long OBIEE ARCHITECT LAB BLOOD ORDERABLES [facility] [address] [facility] Department [place] [address] * eGFR (06/23/2024 11:14 AM CDT) eGFR >90 >=60 mL/min/1. 73 m2 Comment: Interpretive Data Reference Interval Normal >/= 90 mL/min/1.73m2 Mildly decreased* 60 - 89 mL/min/1.73m2 Mildly to moderately decreased 45 - 59 mL/min/1.73m2 Moderately to severely decreased 30 - 44 mL/min/1.73m2 Severely decreased 15 - 29 mL/min/1.73m2 Kidney Failure < 15 mL/min/1.73m2 *Relative to young adult level Estimated glomerular filtration rate is determined by the 2020 CKD-EPI equation recommended by the National Kidney [employer] (A Unifying Approach to GFR Estimation: Recommendations of the NKF-ASK Task Force on Reassessing the Inclusion of Race in Diagnosing Kidney Disease, JASN 2020). The CKD-EPI equation should not be used for patients with unstable renal function and has not been validated in children and those over 70. Current interpretive data was last reviewed 2021. Testing performed by: [address] [address] Blood 06/23/2024 11:1 4 AM CDT 06/23/2024 11:17 AM CDT us Shahid Riddle MD LAB BLOOD ORDERABLES Final R esult [facility] [address] [facility] Department [place] [address] * (ABNORMAL) Differential, auto (06/23/2024 11:14 AM CDT) Neutrophil abs 10.22(H) 1.50 - 6.50 K/cumm Comment:Testing performed by : [address] [address] Imm gran abs 0.49(H) 0.00 - 0.10 K/cumm ETHAN Comment:Testing performed by : [address] [address] Lymphocyte abs 0.55(L) 0.80 - 3.30 K/cumm ETHAN Comment:Testing performed by : [address] [address] Monocyte abs 0.39 0.20 - 0.80 K/cumm ETHAN Comment:Testing performed by : [address] [address] Eosinophil abs 0.02 0.00 - 0.50 K/cumm ETHAN Comment:Testing performed by : [address] [address] Basophil abs 0.11(H) 0.00 - 0.10 K/cumm ETHAN Comment:Testing performed by : [address] [address] Neutrophil pct 86.7 % ETHAN Comment: Interpretive Data Percent cell count reference ranges are not reported, since discordance with absolute values may lead to misinterpretation of CBC data. Current Interpretive Data was last revised on 2017. Testing performed by: [address] [address] Imm gran pct 4.2 % [facility] Comment: Interpretive Data Percent cell count reference ranges are not reported, since discordance with absolute values may lead to misinterpretation of CBC data. Current Interpretive Data was last revised on 2017. Testing performed by: [address] [address] Lymphocyte pct 4.7 % [facility] Comment: Interpretive Data Percent cell count reference ranges are not reported, since discordance with absolute values may lead to misinterpretation of CBC data. Current Interpretive Data was last revised on 2017. Testing performed by: [address] [address] Monocyte pct 3.3 % [facility] Comment: Interpretive Data Percent cell count reference ranges are not reported, since discordance with absolute values may lead to misinterpretation of CBC data. Current Interpretive Data was last revised on 2017. Testing performed by: [address] [address] Eosinophil pct 0.2 % [facility] Comment: Interpretive Data Percent cell count reference ranges are not reported, since discordance with absolute values may lead to misinterpretation of CBC data. Current Interpretive Data was last revised on 2017. Testing performed by: [address] [address] Basophil pct 0.9 % [facility] Comment: Interpretive Data Percent cell count reference ranges are not reported, since discordance with absolute values may lead to misinterpretation of CBC data. Current Interpretive Data was last revised on 2017. Testing performed by: [address] [address] Blood 06/23/2024 11:1 4 AM CDT 06/23/2024 11:17 AM CDT us Shahid Riddle MD LAB BLOOD ORDERABLES Final R esult ETHAN [address] [facility] Department [place] [address] * (ABNORMAL) CBC with auto differential (06/23/2024 11:14 AM CDT) [facility] Signature WBC 11.78(H) 3.80 - 9.90 K/cumm Comment:Testing performed by : [address] [address] Hgb 11.1(L) 13.0 - 17.5 g/dL ETHAN Comment:Testing performed by : [address] [address] Hct 34.0(L) 38.9 - 50.3 % ETHAN Comment:Testing performed by : [address] [address] Plt 185 150 - 400 K/cumm ETHAN Comment:Testing performed by : [address] [address] MPV 11.3 9.1 - 12.3 fL ETHAN Comment:Testing performed by : [address] [address] RBC 4.21(L) 4.30 - 5.80 M/cumm ETHAN Comment:Testing performed by : [address] [address] MCV 80.8(L) 81.3 - 96.4 fL ETHAN Comment:Testing performed by : [address] [address] MCH 26.4(L) 27.1 - 33.3 pg ETHAN Comment:Testing performed by : [address] [address] MCHC 32.6 32.3 - 35.7 g/dL ETHAN Comment:Testing performed by : [address] [address] RDW CV 19.7(H) 11.1 - 14.9 % ETHAN Comment:Testing performed by : [address] [address] RDW SD 54.3(H) 35.7 - 48.1 fL ETHAN Comment:Testing performed by : [address] [address] NRBC abs 0.06(H) 0.00 - 0.01 K/cumm ETHAN Comment:Testing performed by : [address] [address] ANC Prelim 10.22(H) 1.50 - 6.50 K/cumm ETHAN Comment: Interpretive Data The rapid ANC is a preliminary automated count and may vary from the final ANC (Neut Abs) reported in the WBC differential that follows. Current interpretive data was last revised 2024. Testing performed by: [address] [address] Blood 06/23/2024 11:1 4 AM CDT 06/23/2024 11:17 AM CDT Shahid Riddle MD LAB BLOOD ORDERABLES Final R esult Performing Organization Address City/[facility]/ZIP Co de Phone Number [id number] [facility] [place] [address] * Lactate dehydrogenase (LD) (06/23/2024 11:14 AM CDT) Lactate dehydrogenase (LDH) 232 100 - 250 Units/L Comment:Testing performed by : [address] [address] Blood 06/23/2024 11:1 4 AM CDT 06/23/2024 11:17 AM CDT Shahid Riddle MD LAB BLOOD ORDERABLES Final R esult Performing Organization Address City/[facility]/ZIP Co de Phone Number [address] [facility] [place] [address] * (ABNORMAL) Comprehensive metabolic panel (06/23/2024 11:14 AM CDT) Sodium 136 135 - 145 mmol/L Comment:Testing performed by : [address] [address] Potassium, pl 4.5 3.3 - 4.9 mmol/L ETHAN Comment:Testing performed by : [address] [address] Chloride 104 97 - 110 mmol/L ETHAN Comment:Testing performed by : [address], [place]., [address] CO2 22 22 - 32 mmol/L ETHAN Comment:Testing performed by : [address] [address] Anion gap 10 2 - 15 mmol/L ETHAN Comment:Testing performed by : [address], [place]., [address] BUN 17 6 - 25 mg/dL [facility] Comment:Testing performed by : [address] [address] Creatinine 0.90 0.80 - 1.30 mg/dL [facility] Comment:Testing performed by : [address] [address] Glucose 130 70 - 199 mg/dL [facility] Comment: Interpretive Data Fasting glucose >/= 126 mg/dl is diagnostic for diabetes. Fasting is defined as no caloric intake for at least 8 hours. Fasting glucose between 100 mg/dl to 125 mg/dl is diagnostic of prediabetes. In a patient with classic symptoms of hyperglycemia or hyperglycemic crisis, a random glucose >/= 200 mg/dl is diagnostic for diabetes. In the absence of unequivocal hyperglycemia, results should be confirmed by repeat testing. The classification and Diagnosis of Diabetes Diabetes Care 202; 46: S19-S40. Current interpretive data was last revised 2022. Testing performed by: [address] [address] Calcium 9.2 8.5 - 10.3 mg/dL [facility] Comment:Testing performed by : [address] [address] Bilirubin, total 0.3 0.1 - 1.2 mg/dL [facility] Comment:Testing performed by : [address] [address] Protein, pl 6.1(L) 6.5 - 8.5 g/dL ETHAN Comment:Testing performed by : [address] [address] Albumin 4.2 3.5 - 5.0 g/dL ETHAN SONG Comment:Testing performed by : [address] [address] Alk phos 82 40 - 130 Units/L ETHAN SONG Comment:Testing performed by : [address] [address] ALT 28 7 - 55 Units/L ETHAN Comment:Testing performed by : [address] [address] AST 24 10 - 50 Units/L ETHAN Comment:Testing performed by : [address] [address] Blood 06/23/2024 11:1 4 AM CDT 06/23/2024 11:17 AM CDT us Shahid Riddle MD LAB BLOOD ORDERABLES Final R esult Performing Organization Address City/[facility] Co de Phone Number ETHAN [address] [place] [address] * (ABNORMAL) Blood smear review (06/20/2024 8:20 AM CDT) [facility] RBC morphology Consistent with RBC Indicies Comment:Testing performed by : [address] [address] Platelet estimate Decreased(A) ETHAN Comment:Testing performed by : [address] [address] Blood 06/20/2024 8:20 AM CDT 06/20/2024 8:25 AM CDT us Shahid Riddle MD LAB BLOOD ORDERABLES Final R esult Performing Organization Address City/[facility] Co de Phone Number [id number] [place] [address] * eGFR (06/20/2024 8:20 AM CDT) Pathologist [facility] eGFR >90 >=60 mL/min/1. 73 m2 Comment: Interpretive Data Reference Interval Normal >/= 90 mL/min/1.73m2 Mildly decreased* 60 - 89 mL/min/1.73m2 Mildly to moderately decreased 45 - 59 mL/min/1.73m2 Moderately to severely decreased 30 - 44 mL/min/1.73m2 Severely decreased 15 - 29 mL/min/1.73m2 Kidney Failure < 15 mL/min/1.73m2 *Relative to young adult level Estimated glomerular filtration rate is determined by the 2020 CKD-EPI equation recommended by the National Kidney Foundation (A Unifying Approach to GFR Estimation: Recommendations of the NKF-ASK Task Force on Reassessing the Inclusion of Race in Diagnosing Kidney Disease, JASN 2020). The CKD-EPI equation should not be used for patients with unstable renal function and has not been validated in children and those over 70. Current interpretive data was last reviewed 2021. Testing performed by: [address] [address] Blood 06/20/2024 8:20 AM CDT 06/20/2024 8:25 AM CDT us Shahid Riddle MD LAB BLOOD ORDERABLES Final R esult ETHAN [address] [facility] Department [place] [address] * (ABNORMAL) Differential, auto (06/20/2024 8:20 AM CDT) Pathologist [facility] Neutrophil abs 6.46 1.50 - 6.50 K/cumm Comment:Testing performed by : [address] [address] Imm gran abs 1.29(H) 0.00 - 0.10 K/cumm ETHAN SONG Comment:Testing performed by : [address] [address] Lymphocyte abs 0.99 0.80 - 3.30 K/cumm ETHAN SONG Comment:Testing performed by : [address] [address] Monocyte abs 0.77 0.20 - 0.80 K/cumm [facility] Comment:Testing performed by : [address] [address] Eosinophil abs 0.03 0.00 - 0.50 K/cumm [facility] Comment:Testing performed by : [address], [place]., [address] Basophil abs 0.10 0.00 - 0.10 K/cumm [facility] Comment:Testing performed by : [address] [address] Neutrophil pct 67.0 % [facility] Comment: Interpretive Data Percent cell count reference ranges are not reported, since discordance with absolute values may lead to misinterpretation of CBC data. Current Interpretive Data was last revised on 2017. Testing performed by: [address] [address] Imm gran pct 13.4 % [facility] Comment: Interpretive Data Percent cell count reference ranges are not reported, since discordance with absolute values may lead to misinterpretation of CBC data. Current Interpretive Data was last revised on 2017. Testing performed by: [address] [address] Lymphocyte pct 10.3 % [facility] Comment: Interpretive Data Percent cell count reference ranges are not reported, since discordance with absolute values may lead to misinterpretation of CBC data. Current Interpretive Data was last revised on 2017. Testing performed by: [address] [address] Monocyte pct 8.0 % [facility] Comment: Interpretive Data Percent cell count reference ranges are not reported, since discordance with absolute values may lead to misinterpretation of CBC data. Current Interpretive Data was last revised on 2017. Testing performed by: [address] [address] Eosinophil pct 0.3 % [facility] Comment: Interpretive Data Percent cell count reference ranges are not reported, since discordance with absolute values may lead to misinterpretation of CBC data. Current Interpretive Data was last revised on 2017. Testing performed by: [address] [address] Basophil pct 1.0 % ETHAN Comment: Interpretive Data Percent cell count reference ranges are not reported, since discordance with absolute values may lead to misinterpretation of CBC data. Current Interpretive Data was last revised on 2017. Testing performed by: [address] [address] Blood 06/20/2024 8:20 AM CDT 06/20/2024 8:25 AM CDT us Shahid Riddle MD LAB BLOOD ORDERABLES Final R esult [facility] [address] [facility] Department [place] [address] * (ABNORMAL) CBC with auto differential (06/20/2024 8:20 AM CDT) WBC 9.64 3.80 - 9.90 K/cumm Comment:Testing performed by : [address] [address] Hgb 10.9(L) 13.0 - 17.5 g/dL ETHAN Comment:Testing performed by : [address] [address] Hct 33.7(L) 38.9 - 50.3 % ETHAN Comment:Testing performed by : [address] [address] Plt 88(L) 150 - 400 K/cumm ETHAN Comment:Testing performed by : [address] [address] MPV 10.9 9.1 - 12.3 fL ETHAN Comment:Testing performed by : [address] [address] RBC 4.18(L) 4.30 - 5.80 M/cumm ETHAN Comment:Testing performed by : [address] [address] MCV 80.6(L) 81.3 - 96.4 fL ETHAN Comment:Testing performed by : [address] [address] MCH 26.1(L) 27.1 - 33.3 pg ETHAN Comment:Testing performed by : [address] [address] MCHC 32.3 32.3 - 35.7 g/dL ETHAN SONG Comment:Testing performed by : [address] [address] RDW CV 19.0(H) 11.1 - 14.9 % ETHAN Comment:Testing performed by : [address] [address] RDW SD 53.2(H) 35.7 - 48.1 fL ETHAN Comment:Testing performed by : [address] [address] NRBC abs 0.11(H) 0.00 - 0.01 K/cumm ETHAN Comment:Testing performed by : [address] [address] ANC Prelim 6.46 1.50 - 6.50 K/cumm ETHAN Comment: Interpretive Data The rapid ANC is a preliminary automated count and may vary from the final ANC (Neut Abs) reported in the WBC differential that follows. Current interpretive data was last revised 2024. Testing performed by: [address] [address] Blood 06/20/2024 8:20 AM CDT 06/20/2024 8:25 AM CDT us Shahid Riddle MD LAB BLOOD ORDERABLES Final R esult [facility] [address] [facility] Department [place] [address] * (ABNORMAL) Comprehensive metabolic panel (06/20/2024 8:20 AM CDT) Sodium 141 135 - 145 mmol/L Comment:Testing performed by : [address] [address] Potassium, pl 4.1 3.3 - 4.9 mmol/L [facility] Comment:Testing performed by : [address] [address] Chloride 108 97 - 110 mmol/L [facility] Comment:Testing performed by : [address], [place]., [address] CO2 23 22 - 32 mmol/L [facility] Comment:Testing performed by : [address] [address] Anion gap 10 2 - 15 mmol/L [facility] Comment:Testing performed by : [address], [place]., [address] BUN 12 6 - 25 mg/dL [facility] Comment:Testing performed by : [address] [address] Creatinine 0.90 0.80 - 1.30 mg/dL [facility] Comment:Testing performed by : [address] [address] Glucose 132 70 - 199 mg/dL [facility] Comment: Interpretive Data Fasting glucose >/= 126 mg/dl is diagnostic for diabetes. Fasting is defined as no caloric intake for at least 8 hours. Fasting glucose between 100 mg/dl to 125 mg/dl is diagnostic of prediabetes. In a patient with classic symptoms of hyperglycemia or hyperglycemic crisis, a random glucose >/= 200 mg/dl is diagnostic for diabetes. In the absence of unequivocal hyperglycemia, results should be confirmed by repeat testing. The classification and Diagnosis of Diabetes Diabetes Care 2021; 46: S19-S40. Current interpretive data was last revised 2022. Testing performed by: [address] [address] Calcium 9.2 8.5 - 10.3 mg/dL [facility] Comment:Testing performed by : [address] [address] Bilirubin, total 0.2 0.1 - 1.2 mg/dL [facility] Comment:Testing performed by : [address] [address] Protein, pl 6.0(L) 6.5 - 8.5 g/dL [facility] Comment:Testing performed by : [address] [address] Albumin 4.1 3.5 - 5.0 g/dL ETHAN Comment:Testing performed by : [address] [address] Alk phos 97 40 - 130 Units/L ETHAN Comment:Testing performed by : [address] [address] ALT 27 7 - 55 Units/L ETHAN Comment:Testing performed by : [address] [address] AST 22 10 - 50 Units/L ETHAN Comment:Testing performed by : [address] [address] Blood 06/20/2024 8:20 AM CDT 06/20/2024 8:25 AM CDT us Shahid Riddle MD LAB BLOOD ORDERABLES Final R esult Performing Organization Address [facility] Co de Phone Number [address] [place] [address] * Immature platelet fraction (06/16/2024 8:09 AM CDT) Pathologist [facility] IPF 7.3 1.6 - 10.1 % Comment:Testing performed by : [address] [address] Blood 06/16/2024 8:09 AM CDT 06/16/2024 8:11 AM CDT us Shahid Riddle MD LAB BLOOD ORDERABLES Final R esult Performing Organization Address City/[facility] Co de Phone Number [address] [address] * (ABNORMAL) Blood smear review (06/16/2024 8:09 AM CDT) [facility] RBC morphology Consistent with RBC Indicies Comment:Testing performed by : [address] [address] Platelet estimate Decreased(A) ETHAN Comment:Testing performed by : [address] [address] Blood 06/16/2024 8:09 AM CDT 06/16/2024 8:11 AM CDT us Shahid Riddle MD LAB BLOOD ORDERABLES Final R esult ETHAN [address] [facility] [place] [address] * eGFR (06/16/2024 8:09 AM CDT) eGFR >90 >=60 mL/min/1. 73 m2 Comment: Interpretive Data Reference Interval Normal >/= 90 mL/min/1.73m2 Mildly decreased* 60 - 89 mL/min/1.73m2 Mildly to moderately decreased 45 - 59 mL/min/1.73m2 Moderately to severely decreased 30 - 44 mL/min/1.73m2 Severely decreased 15 - 29 mL/min/1.73m2 Kidney Failure < 15 mL/min/1.73m2 *Relative to young adult level Estimated glomerular filtration rate is determined by the 2020 CKD-EPI equation recommended by the National Kidney Foundation (A Unifying Approach to GFR Estimation: Recommendations of the NKF-ASK Task Force on Reassessing the Inclusion of Race in Diagnosing Kidney Disease, JASN 2020). The CKD-EPI equation should not be used for patients with unstable renal function and has not been validated in children and those over 70. Current interpretive data was last reviewed 2021. Testing performed by: [facility], [address] [place] [address]., [address] Blood 06/16/2024 8:09 AM CDT 06/16/2024 8:11 AM CDT us Shahid Riddle MD LAB BLOOD ORDERABLES Final R esult ETHAN [address] [facility] [place] [address] * (ABNORMAL) Differential, auto (06/16/2024 8:09 AM CDT) Neutrophil abs 6.24 1.50 - 6.50 K/cumm Comment:Testing performed by : [address] [address] Imm gran abs 2.64(H) 0.00 - 0.10 K/cumm ETHAN Comment:Testing performed by : [address] [address] Lymphocyte abs 1.13 0.80 - 3.30 K/cumm [facility] Comment:Testing performed by : [address] [address] Monocyte abs 0.99(H) 0.20 - 0.80 K/cumm [facility] Comment:Testing performed by : [address] [address] Eosinophil abs 0.02 0.00 - 0.50 K/cumm [facility] Comment:Testing performed by : [address] [address] Basophil abs 0.12(H) 0.00 - 0.10 K/cumm [facility] Comment:Testing performed by : [address] [address] Neutrophil pct 56.0 % [facility] Comment: Interpretive Data Percent cell count reference ranges are not reported, since discordance with absolute values may lead to misinterpretation of CBC data. Current Interpretive Data was last revised on 2017. Testing performed by: [address] [address] Imm gran pct 23.7 % [facility] Comment: Interpretive Data Percent cell count reference ranges are not reported, since discordance with absolute values may lead to misinterpretation of CBC data. Current Interpretive Data was last revised on 2017. Testing performed by: [address] [address] Lymphocyte pct 10.1 % [facility] Comment: Interpretive Data Percent cell count reference ranges are not reported, since discordance with absolute values may lead to misinterpretation of CBC data. Current Interpretive Data was last revised on 2017. Testing performed by: [address] [address] Monocyte pct 8.9 % ETHAN Comment: Interpretive Data Percent cell count reference ranges are not reported, since discordance with absolute values may lead to misinterpretation of CBC data. Current Interpretive Data was last revised on 2017. Testing performed by: [address] [address] Eosinophil pct 0.2 % ETHAN Comment: Interpretive Data Percent cell count reference ranges are not reported, since discordance with absolute values may lead to misinterpretation of CBC data. Current Interpretive Data was last revised on 2017. Testing performed by: [address] [address] Basophil pct 1.1 % ETHAN Comment: Interpretive Data Percent cell count reference ranges are not reported, since discordance with absolute values may lead to misinterpretation of CBC data. Current Interpretive Data was last revised on 2017. Testing performed by: [address] [address] Blood 06/16/2024 8:09 AM CDT 06/16/2024 8:11 AM CDT us Shahid Riddle MD LAB BLOOD ORDERABLES Final R esult [facility] [address] [facility] Department of Laboratories [place], [place] [id number] * (ABNORMAL) CBC with auto differential (06/16/2024 8:09 AM CDT) WBC 11.14(H) 3.80 - 9.90 K/cumm Comment:Testing performed by : [address] [address] Hgb 10.4(L) 13.0 - 17.5 g/dL ETHAN Comment:Testing performed by : [address] [address] Hct 31.7(L) 38.9 - 50.3 % ETHAN Comment:Testing performed by : [address] [address] Plt 49(L) 150 - 400 K/cumm ETHAN Comment:Testing performed by : [address] [address] MPV Not Measured 9.1 - 12.3 fL ETHAN Comment:Testing performed by : [address] [address] RBC 3.98(L) 4.30 - 5.80 M/cumm ETHAN Comment:Testing performed by : [address] [address] MCV 79.6(L) 81.3 - 96.4 fL ETHAN Comment:Testing performed by : [address] [address] MCH 26.1(L) 27.1 - 33.3 pg ETHAN Comment:Testing performed by : [address] [address] MCHC 32.8 32.3 - 35.7 g/dL ETHAN Comment:Testing performed by : [address] [address] RDW CV 19.1(H) 11.1 - 14.9 % ETHAN Comment:Testing performed by : [address] [address] RDW SD 53.2(H) 35.7 - 48.1 fL ETHAN Comment:Testing performed by : [address] [address] NRBC abs 0.16(H) 0.00 - 0.01 K/cumm ETHAN Comment:Testing performed by : [address] [address] ANC Prelim 6.24 1.50 - 6.50 K/cumm ETHAN Comment: Interpretive Data The rapid ANC is a preliminary automated count and may vary from the final ANC (Neut Abs) reported in the WBC differential that follows. Current interpretive data was last revised 2024. Testing performed by: [address], [address] Blood 06/16/2024 8:09 AM CDT 06/16/2024 8:11 AM CDT us Shahid Riddle MD LAB BLOOD ORDERABLES Final [facility] esult [facility] [address] [facility] Department [place] [address] * (ABNORMAL) Comprehensive metabolic panel (06/16/2024 8:09 AM CDT) Sodium 142 135 - 145 mmol/L Comment:Testing performed by : [address] [address] Potassium, pl 3.9 3.3 - 4.9 mmol/L ETHAN Comment:Testing performed by : [address] [address] Chloride 107 97 - 110 mmol/L ETHAN Comment:Testing performed by : [address] [address] CO2 24 22 - 32 mmol/L ETHAN Comment:Testing performed by : [address] [address] Anion gap 11 2 - 15 mmol/L ETHAN Comment:Testing performed by : [address] [address] BUN 6 6 - 25 mg/dL ETHAN Comment:Testing performed by : [address] [address] Creatinine 0.90 0.80 - 1.30 mg/dL ETHAN Comment:Testing performed by : [address] [address] Glucose 138 70 - 199 mg/dL ETHAN Comment: Interpretive Data Fasting glucose >/= 126 mg/dl is diagnostic for diabetes. Fasting is defined as no caloric intake for at least 8 hours. Fasting glucose between 100 mg/dl to 125 mg/dl is diagnostic of prediabetes. In a patient with classic symptoms of hyperglycemia or hyperglycemic crisis, a random glucose >/= 200 mg/dl is diagnostic for diabetes. In the absence of unequivocal hyperglycemia, results should be confirmed by repeat testing. The classification and Diagnosis of Diabetes Diabetes Care 202; 46: S19-S40. Current interpretive data was last revised 2022. Testing performed by: [address] [address] Calcium 9.1 8.5 - 10.3 mg/dL ETHAN Comment:Testing performed by : [address] [address] Bilirubin, total 0.2 0.1 - 1.2 mg/dL ETHAN Comment:Testing performed by : [address] [address] Protein, pl 5.6(L) 6.5 - 8.5 g/dL ETHAN Comment:Testing performed by : [address] [address] Albumin 3.7 3.5 - 5.0 g/dL ETHAN Comment:Testing performed by : [address] [address] Alk phos 102 40 - 130 Units/L ETHAN Comment:Testing performed by : [address] [address] ALT 33 7 - 55 Units/L ETHAN Comment:Testing performed by : [address] [address] AST 27 10 - 50 Units/L ETHAN Comment:Testing performed by : [address] [address] Blood 06/16/2024 8:09 AM CDT 06/16/2024 8:11 AM CDT us Shahid Riddle MD LAB BLOOD ORDERABLES Final R esult ETHAN SONG [address] [facility] Department of Laboratories [place], [place] [id number] * eGFR (06/13/2024 8:24 AM CDT) eGFR >90 >=60 mL/min/1. 73 m2 Comment: Interpretive Data Reference Interval Normal >/= 90 mL/min/1.73m2 Mildly decreased* 60 - 89 mL/min/1.73m2 Mildly to moderately decreased 45 - 59 mL/min/1.73m2 Moderately to severely decreased 30 - 44 mL/min/1.73m2 Severely decreased 15 - 29 mL/min/1.73m2 Kidney Failure < 15 mL/min/1.73m2 *Relative to young adult level Estimated glomerular filtration rate is determined by the 2020 CKD-EPI equation recommended by the [employer] Kid[employer] (A Unifying Approach to GFR Estimation: Recommendations of the NKF-ASK Task Force on Reassessing the Inclusion of Race in Diagnosing Kidney Disease, JASN 2020). The CKD-EPI equation should not be used for patients with unstable renal function and has not been validated in children and those over 70. Current interpretive data was last reviewed 2021. Testing performed by: [address] [address] Blood 06/13/2024 8:24 AM CDT 06/13/2024 8:32 AM CDT us Shahid Riddle MD LAB BLOOD ORDERABLES Final R esult [facility] [address] [facility] Department [place] [address] * (ABNORMAL) Differential, auto (06/13/2024 8:24 AM CDT) Neutrophil abs 0.2(L) 1.5 - 6.5 K/cumm Comment: Critical result called to and read back by MERCY FINCH RN on 06 13 2024 at 0914 to Melvina Valladares. via secure messaging Testing performed by: [address] [address] Imm gran abs 0.1 0.0 - 0.1 K/cumm ETHAN SONG Comment:Testing performed by : [address] [address] Lymphocyte abs 0.4(L) 0.8 - 3.3 K/cumm ETHAN SONG Comment:Testing performed by : [address] [place]., [address] Monocyte abs 0.4 0.2 - 0.8 K/cumm [facility] Comment:Testing performed by : [address] [address] Eosinophil abs 0.0 0.0 - 0.5 K/cumm [facility] Comment:Testing performed by : [address] [address] Basophil abs 0.0 0.0 - 0.1 K/cumm [facility] Comment:Testing performed by : [address] [address] Neutrophil pct 16.6 % [facility] Comment: Interpretive Data Percent cell count reference ranges are not reported, since discordance with absolute values may lead to misinterpretation of CBC data. Current Interpretive Data was last revised on 2017. Testing performed by: [address] [address] Imm gran pct 9.8 % [facility] Comment: Interpretive Data Percent cell count reference ranges are not reported, since discordance with absolute values may lead to misinterpretation of CBC data. Current Interpretive Data was last revised on 2017. Testing performed by: [address] [address] Lymphocyte pct 36.3 % [facility] Comment: Interpretive Data Percent cell count reference ranges are not reported, since discordance with absolute values may lead to misinterpretation of CBC data. Current Interpretive Data was last revised on 2017. Testing performed by: [address] [address] Monocyte pct 34.3 % [facility] Comment: Interpretive Data Percent cell count reference ranges are not reported, since discordance with absolute values may lead to misinterpretation of CBC data. Current Interpretive Data was last revised on 2017. Testing performed by: [address] [address] Eosinophil pct 1.0 % [facility] Comment: Interpretive Data Percent cell count reference ranges are not reported, since discordance with absolute values may lead to misinterpretation of CBC data. Current Interpretive Data was last revised on 2017. Testing performed by: [address] [address] Basophil pct 2.0 % ETHAN Comment: Interpretive Data Percent cell count reference ranges are not reported, since discordance with absolute values may lead to misinterpretation of CBC data. Current Interpretive Data was last revised on 2017. Testing performed by: [address] [address] Blood 06/13/2024 8:24 AM CDT 06/13/2024 8:32 AM CDT us Shahid Riddle MD LAB BLOOD ORDERABLES Final R esult [facility] [facility] Department [place] [address] * (ABNORMAL) CBC with auto differential (06/13/2024 8:24 AM CDT) WBC 1.0(L) 3.8 - 9.9 K/cumm Comment:Testing performed by : [address] [address] Hgb 10.0(L) 13.0 - 17.5 g/dL ETHAN Comment:Testing performed by : [address] [address] Hct 30.4(L) 38.9 - 50.3 % ETHAN Comment:Testing performed by : [address] [address] Plt 63(L) 150 - 400 K/cumm ETHAN Comment:Testing performed by : [address] [address] MPV Not Measured 9.1 - 12.3 fL ETHAN SOGN Comment:Testing performed by : [address] [address] RBC 3.85(L) 4.30 - 5.80 M/cumm ETHAN Comment:Testing performed by : [address] [address] MCV 79.0(L) 81.3 - 96.4 fL ETHAN SONG Comment:Testing performed by : [facility], [address] [place] [address]., [address] MCH 26.0(L) 27.1 - 33.3 pg ETHAN SONG Comment:Testing performed by : [address] [address] MCHC 32.9 32.3 - 35.7 g/dL ETHAN SONG Comment:Testing performed by : [address] [address] RDW CV 17.7(H) 11.1 - 14.9 % ETHAN Comment:Testing performed by : [address] [address] RDW SD 49.2(H) 35.7 - 48.1 fL ETHAN SONG Comment:Testing performed by : [address] [address] NRBC abs 0.10(H) 0.00 - 0.01 K/cumm ETHAN Comment:Testing performed by : [address] [address] Blood 06/13/2024 8:24 AM CDT 06/13/2024 8:32 AM CDT us Shahid Riddle MD LAB BLOOD ORDERABLES Final R esult Performing Organization Address City/State/[facility] Co de Phone Number ETHAN [facility]3 [facility] Department of Laboratories [place], [place] [id number] * (ABNORMAL) Manual Differential (06/13/2024 8:24 AM CDT) Differential Auto Comment:Testing performed by : [address] [address] RBC morphology Consistent with RBC Indicies ETHAN Comment:Testing performed by : [address] [address] Platelet estimate Decreased(A) ETHAN SONG Comment:Testing performed by : [address] [address] Blood 06/13/2024 8:24 AM CDT 06/13/2024 8:32 AM CDT us Shahid Riddle MD LAB BLOOD ORDERABLES Final R esult ETHAN [address] [facility] Department [place] [address] * (ABNORMAL) Comprehensive metabolic panel (06/13/2024 8:24 AM CDT) Sodium 140 135 - 145 mmol/L Comment:Testing performed by : [address] [address] Potassium, pl 4.0 3.3 - 4.9 mmol/L ETHAN Comment:Testing performed by : [address] [address] Chloride 106 97 - 110 mmol/L ETHAN Comment:Testing performed by : [address] [address] CO2 24 22 - 32 mmol/L ETHAN Comment:Testing performed by : [address] [address] Anion gap 10 2 - 15 mmol/L ETHAN Comment:Testing performed by : [address] [address] BUN 9 6 - 25 mg/dL ETHAN Comment:Testing performed by : [address] [address] Creatinine 0.70(L) 0.80 - 1.30 mg/dL ETHAN Comment:Testing performed by : [address] [address] Glucose 111 70 - 199 mg/dL ETHAN Comment: Interpretive Data Fasting glucose >/= 126 mg/dl is diagnostic for diabetes. Fasting is defined as no caloric intake for at least 8 hours. Fasting glucose between 100 mg/dl to 125 mg/dl is diagnostic of prediabetes. In a patient with classic symptoms of hyperglycemia or hyperglycemic crisis, a random glucose >/= 200 mg/dl is diagnostic for diabetes. In the absence of unequivocal hyperglycemia, results should be confirmed by repeat testing. The classification and Diagnosis of Diabetes Diabetes Care 202; 46: S19-S40. Current interpretive data was last revised 2022. Testing performed by: [address] [address] Calcium 9.0 8.5 - 10.3 mg/dL ETHAN Comment:Testing performed by : [address] [address] Bilirubin, total 0.3 0.1 - 1.2 mg/dL ETHAN Comment:Testing performed by : [address] [address] Protein, pl 5.6(L) 6.5 - 8.5 g/dL ETHAN Comment:Testing performed by : [address] [address] Albumin 3.8 3.5 - 5.0 g/dL ETHAN Comment:Testing performed by : [address] [address] Alk phos 96 40 - 130 Units/L ETHAN Comment:Testing performed by : [address] [address] ALT 26 7 - 55 Units/L ETHAN Comment:Testing performed by : [address] [address] AST 17 10 - 50 Units/L ETHAN Comment:Testing performed by : [address] [address] Blood 06/13/2024 8:24 AM CDT 06/13/2024 8:32 AM CDT us Shahid Riddle MD LAB BLOOD ORDERABLES Final R esult ETHAN [address] [facility] Department [place] [address] * eGFR (06/09/2024 8:22 AM CDT) eGFR >90 >=60 mL/min/1. 73 m2 Comment: Interpretive Data Reference Interval Normal >/= 90 mL/min/1.73m2 Mildly decreased* 60 - 89 mL/min/1.73m2 Mildly to moderately decreased 45 - 59 mL/min/1.73m2 Moderately to severely decreased 30 - 44 mL/min/1.73m2 Severely decreased 15 - 29 mL/min/1.73m2 Kidney Failure < 15 mL/min/1.73m2 *Relative to young adult level Estimated glomerular filtration rate is determined by the 2020 CKD-EPI equation recommended by the National Kidney Foundation (A Unifying Approach to GFR Estimation: Recommendations of the NKF-ASK Task Force on Reassessing the Inclusion of Race in Diagnosing Kidney Disease, JASN 2020). The CKD-EPI equation should not be used for patients with unstable renal function and has not been validated in children and those over 70. Current interpretive data was last reviewed 2021. Testing performed by: [address] [address] Blood 06/09/2024 8:22 AM CDT 06/09/2024 8:29 AM CDT us Shahid Riddle MD LAB BLOOD ORDERABLES Final R esult [facility] [address] [facility] Department [place] [address] * (ABNORMAL) Differential, auto (06/09/2024 8:22 AM CDT) Neutrophil abs 36.7(H) 1.5 - 6.5 K/cumm Comment:Testing performed by : [address] [address] Imm gran abs 4.4(H) 0.0 - 0.1 K/cumm ETHAN Comment:Testing performed by : [address] [address] Lymphocyte abs 0.4(L) 0.8 - 3.3 K/cumm ETHAN Comment:Testing performed by : [address] [address] Monocyte abs 0.1(L) 0.2 - 0.8 K/cumm ETHAN Comment:Testing performed by : [address] [place] [address] Eosinophil abs 0.0 0.0 - 0.5 K/cumm [facility] Comment:Testing performed by : [address] [address] Basophil abs 0.1 0.0 - 0.1 K/cumm [facility] Comment:Testing performed by : [address] [address] Neutrophil pct 88.0 % [facility] Comment: Interpretive Data Percent cell count reference ranges are not reported, since discordance with absolute values may lead to misinterpretation of CBC data. Current Interpretive Data was last revised on 2017. Testing performed by: [address] [address] Imm gran pct 10.6 % [facility] Comment: Interpretive Data Percent cell count reference ranges are not reported, since discordance with absolute values may lead to misinterpretation of CBC data. Current Interpretive Data was last revised on 2017. Testing performed by: [address] [address] Lymphocyte pct 1.0 % [facility] Comment: Interpretive Data Percent cell count reference ranges are not reported, since discordance with absolute values may lead to misinterpretation of CBC data. Current Interpretive Data was last revised on 2017. Testing performed by: [address] [address] Monocyte pct 0.1 % [facility] Comment: Interpretive Data Percent cell count reference ranges are not reported, since discordance with absolute values may lead to misinterpretation of CBC data. Current Interpretive Data was last revised on 2017. Testing performed by: [address] [address] Eosinophil pct 0.0 % [facility] Comment: Interpretive Data Percent cell count reference ranges are not reported, since discordance with absolute values may lead to misinterpretation of CBC data. Current Interpretive Data was last revised on 2017. Testing performed by: [address] [address] Basophil pct 0.3 % [facility] Comment: Interpretive Data Percent cell count reference ranges are not reported, since discordance with absolute values may lead to misinterpretation of CBC data. Current Interpretive Data was last revised on 2017. Testing performed by: [address] [address] Blood 06/09/2024 8:22 AM CDT 06/09/2024 8:29 AM CDT us Shahid Riddle MD LAB BLOOD ORDERABLES Final R esult [facility] [address] [facility] Department [place] [address] * (ABNORMAL) CBC with auto differential (06/09/2024 8:22 AM CDT) WBC 41.7(H) 3.8 - 9.9 K/cumm Comment:Testing performed by : [address] [address] Hgb 10.6(L) 13.0 - 17.5 g/dL ETHAN Comment:Testing performed by : [address] [address] Hct 31.9(L) 38.9 - 50.3 % ETHAN Comment:Testing performed by : [address] [address] Plt 172 150 - 400 K/cumm ETHAN Comment:Testing performed by : [address] [address] MPV 11.8 9.1 - 12.3 fL ETHAN Comment:Testing performed by : [address] [address] RBC 4.03(L) 4.30 - 5.80 M/cumm ETHAN Comment:Testing performed by : [address] [address] MCV 79.2(L) 81.3 - 96.4 fL ETHAN Comment:Testing performed by : [address] [address] MCH 26.3(L) 27.1 - 33.3 pg ETHAN SONG Comment:Testing performed by : [facility] [address] [place] [address]., [address] MCHC 33.2 32.3 - 35.7 g/dL ETHAN SONG Comment:Testing performed by : [address] [address] RDW CV 18.1(H) 11.1 - 14.9 % ETHAN SONG Comment:Testing performed by : [address] [address] RDW SD 51.0(H) 35.7 - 48.1 fL ETHAN SONG Comment:Testing performed by : [address] [address] NRBC abs 0.00 0.00 - 0.01 K/cumm ETHAN SONG Comment:Testing performed by : [address] [address] Blood 06/09/2024 8:22 AM CDT 06/09/2024 8:29 AM CDT us Shahid Riddle MD LAB BLOOD ORDERABLES Final R esult ETHAN [address] [facility] Department [place] [address] * (ABNORMAL) Manual Differential (06/09/2024 8:22 AM CDT) Differential Auto Comment:Testing performed by : [address] [address] Neutrophil abs 36.7(H) 1.5 - 6.5 K/cumm ETHAN SONG Comment:Testing performed by : [address] [address] Imm gran abs 4.4(H) 0.0 - 0.1 K/cumm ETHAN SONG Comment:Testing performed by : [address] [address] Lymphocyte abs 0.4(L) 0.8 - 3.3 K/cumm ETHAN SONG Comment:Testing performed by : [address] [address] Monocyte abs 0.1(L) 0.2 - 0.8 K/cumm [facility] Comment:Testing performed by : [address] [address] Eosinophil abs 0.0 0.0 - 0.5 K/cumm [facility] Comment:Testing performed by : [address] [address] Basophil abs 0.1 0.0 - 0.1 K/cumm [facility] Comment:Testing performed by : [address] [address] Neutrophil pct 88.0 % [facility] Comment: Interpretive Data Percent cell count reference ranges are not reported, since discordance with absolute values may lead to misinterpretation of CBC data. Current Interpretive Data was last revised on 2017. Testing performed by: [address] [address] Imm gran pct 10.6 % [facility] Comment: Interpretive Data Percent cell count reference ranges are not reported, since discordance with absolute values may lead to misinterpretation of CBC data. Current Interpretive Data was last revised on 2017. Testing performed by: [address] [address] Lymphocyte pct 1.0 % [facility] Comment: Interpretive Data Percent cell count reference ranges are not reported, since discordance with absolute values may lead to misinterpretation of CBC data. Current Interpretive Data was last revised on 2017. Testing performed by: [address] [address] Monocyte pct 0.1 % [facility] Comment: Interpretive Data Percent cell count reference ranges are not reported, since discordance with absolute values may lead to misinterpretation of CBC data. Current Interpretive Data was last revised on 2017. Testing performed by: [address] [address] Eosinophil pct 0.0 % [facility] Comment: Interpretive Data Percent cell count reference ranges are not reported, since discordance with absolute values may lead to misinterpretation of CBC data. Current Interpretive Data was last revised on 2017. Testing performed by: [address] [address] Basophil pct 0.3 % ETHAN Comment: Interpretive Data Percent cell count reference ranges are not reported, since discordance with absolute values may lead to misinterpretation of CBC data. Current Interpretive Data was last revised on 2017. Testing performed by: [address], [place]., [address] RBC morphology Consistent with RBC Indicies ETHAN Comment:Testing performed by : [address] [address] Blood 06/09/2024 8:22 AM CDT 06/09/2024 8:29 AM CDT us Shahid Riddle MD LAB BLOOD ORDERABLES Final R esult [facility]0 [facility] Department [place] [address] * (ABNORMAL) Comprehensive metabolic panel (06/09/2024 8:22 AM CDT) Sodium 138 135 - 145 mmol/L Comment:Testing performed by : [address] [address] Potassium, pl 3.4 3.3 - 4.9 mmol/L ETHAN Comment:Testing performed by : [address] [address] Chloride 102 97 - 110 mmol/L ETHAN Comment:Testing performed by : [address] [address] CO2 25 22 - 32 mmol/L ETHAN Comment:Testing performed by : [address] [address] Anion gap 11 2 - 15 mmol/L ETHAN Comment:Testing performed by : [address] [address] BUN 19 6 - 25 mg/dL ETHAN Comment:Testing performed by : [address] [address] Creatinine 0.80 0.80 - 1.30 mg/dL ETHAN Comment:Testing performed by : [address] [address] Glucose 137 70 - 199 mg/dL ETHAN Comment: Interpretive Data Fasting glucose >/= 126 mg/dl is diagnostic for diabetes. Fasting is defined as no caloric intake for at least 8 hours. Fasting glucose between 100 mg/dl to 125 mg/dl is diagnostic of prediabetes. In a patient with classic symptoms of hyperglycemia or hyperglycemic crisis, a random glucose >/= 200 mg/dl is diagnostic for diabetes. In the absence of unequivocal hyperglycemia, results should be confirmed by repeat testing. The classification and Diagnosis of Diabetes Diabetes Care 2021; 46: S19-S40. Current interpretive data was last revised 2022. Testing performed by: [address] [address] Calcium 8.3(L) 8.5 - 10.3 mg/dL ETHAN Comment:Testing performed by : [address] [address] Bilirubin, total 0.5 0.1 - 1.2 mg/dL ETHAN Comment:Testing performed by : [address] [address] Protein, pl 4.9(L) 6.5 - 8.5 g/dL ETHAN Comment:Testing performed by : [address] [address] Albumin 3.4(L) 3.5 - 5.0 g/dL ETHAN Comment:Testing performed by : [address] [address] Alk phos 102 40 - 130 Units/L ETHAN Comment:Testing performed by : [address] [address] ALT 22 7 - 55 Units/L ETHAN Comment:Testing performed by : [address] [address] AST 15 10 - 50 Units/L ETHAN Comment:Testing performed by : [address] [address] Blood 06/09/2024 8:22 AM CDT 06/09/2024 8:29 AM CDT us Shahid Riddle MD LAB BLOOD ORDERABLES Final R esult Performing Organization Address City/[facility]/ZIP Co de Phone Number ETHAN [address] [facility] [facility] [facility] [place] [address] * eGFR (06/06/2024 7:51 AM CDT) eGFR >90 >=60 mL/min/1. 73 m2 Comment: Interpretive Data Reference Interval Normal >/= 90 mL/min/1.73m2 Mildly decreased* 60 - 89 mL/min/1.73m2 Mildly to moderately decreased 45 - 59 mL/min/1.73m2 Moderately to severely decreased 30 - 44 mL/min/1.73m2 Severely decreased 15 - 29 mL/min/1.73m2 Kidney Failure < 15 mL/min/1.73m2 *Relative to young adult level Estimated glomerular filtration rate is determined by the 2020 CKD-EPI equation recommended by the National Kidney Foundation (A Unifying Approach to GFR Estimation: Recommendations of the NKF-ASK Task Force on Reassessing the Inclusion of Race in Diagnosing Kidney Disease, JASN 2020). The CKD-EPI equation should not be used for patients with unstable renal function and has not been validated in children and those over 70. Current interpretive data was last reviewed 2021. Testing performed by: [address] [address] Blood 06/06/2024 7:51 AM CDT 06/06/2024 7:54 AM CDT us Shahid Riddle MD LAB BLOOD ORDERABLES Final R esult [facility] [place] [address] * (ABNORMAL) Differential, auto (06/06/2024 7:51 AM CDT) Neutrophil abs 4.1 1.5 - 6.5 K/cumm Comment:Testing performed by : [address] [address] Imm gran abs 0.1 0.0 - 0.1 K/cumm CERNER Comment:Testing performed by : [address] [address] Lymphocyte abs 0.2(L) 0.8 - 3.3 K/cumm CERNER Comment:Testing performed by : [address] [address] Monocyte abs 0.1(L) 0.2 - 0.8 K/cumm [facility] Comment:Testing performed by : [address] [address] Eosinophil abs 0.0 0.0 - 0.5 K/cumm [facility] Comment:Testing performed by : [address] [address] Basophil abs 0.0 0.0 - 0.1 K/cumm [facility] Comment:Testing performed by : [address] [address] Neutrophil pct 91.2 % [facility] Comment: Interpretive Data Percent cell count reference ranges are not reported, since discordance with absolute values may lead to misinterpretation of CBC data. Current Interpretive Data was last revised on 2017. Testing performed by: [address] [address] Imm gran pct 1.6 % CERNER Comment: Interpretive Data Percent cell count reference ranges are not reported, since discordance with absolute values may lead to misinterpretation of CBC data. Current Interpretive Data was last revised on 2017. Testing performed by: [address] [address] Lymphocyte pct 4.5 % CERNER Comment: Interpretive Data Percent cell count reference ranges are not reported, since discordance with absolute values may lead to misinterpretation of CBC data. Current Interpretive Data was last revised on 2017. Testing performed by: [address] [address] Monocyte pct 2.7 % CERNER Comment: Interpretive Data Percent cell count reference ranges are not reported, since discordance with absolute values may lead to misinterpretation of CBC data. Current Interpretive Data was last revised on 2017. Testing performed by: [address] [address] Eosinophil pct 0.0 % ETHAN Comment: Interpretive Data Percent cell count reference ranges are not reported, since discordance with absolute values may lead to misinterpretation of CBC data. Current Interpretive Data was last revised on 2017. Testing performed by: [address] [address] Basophil pct 0.0 % ETHAN Comment: Interpretive Data Percent cell count reference ranges are not reported, since discordance with absolute values may lead to misinterpretation of CBC data. Current Interpretive Data was last revised on 2017. Testing performed by: [address] [address] Blood 06/06/2024 7:51 AM CDT 06/06/2024 7:54 AM CDT us Shahid Riddle MD LAB BLOOD ORDERABLES Final R esult [facility] [address] [facility] Department of Laboratories [place], [place] [id number] * (ABNORMAL) CBC with auto differential (06/06/2024 7:51 AM CDT) Pathologist [facility] WBC 4.5 3.8 - 9.9 K/cumm Comment:Testing performed by : [address] [address] Hgb 10.7(L) 13.0 - 17.5 g/dL ETHAN Comment:Testing performed by : [address] [address] Hct 31.9(L) 38.9 - 50.3 % ETHAN Comment:Testing performed by : [address] [address] Plt 219 150 - 400 K/cumm ETHAN Comment:Testing performed by : [address] [address] MPV 11.6 9.1 - 12.3 fL ETHAN SONG Comment:Testing performed by : [facility], [address] [place] [address]., [address] RBC 4.06(L) 4.30 - 5.80 M/cumm ETHAN SONG Comment:Testing performed by : [address] [address] MCV 78.6(L) 81.3 - 96.4 fL ETHAN SONG Comment:Testing performed by : [address] [address] MCH 26.4(L) 27.1 - 33.3 pg ETHAN SONG Comment:Testing performed by : [address] [address] MCHC 33.5 32.3 - 35.7 g/dL ETHAN Comment:Testing performed by : [address] [address] RDW CV 17.7(H) 11.1 - 14.9 % ETHAN Comment:Testing performed by : [address] [address] RDW SD 49.5(H) 35.7 - 48.1 fL ETHAN Comment:Testing performed by : [address] [address] NRBC abs 0.00 0.00 - 0.01 K/cumm ETHAN Comment:Testing performed by : [address] [address] Blood 06/06/2024 7:51 AM CDT 06/06/2024 7:54 AM CDT us Shahid Riddle MD LAB BLOOD ORDERABLES Final R esult ETHAN [address] [facility] Department [place] [address] * (ABNORMAL) Comprehensive metabolic panel (06/06/2024 7:51 AM CDT) Sodium 140 135 - 145 mmol/L Comment:Testing performed by : [address] [place]., [address] Potassium, pl 4.1 3.3 - 4.9 mmol/L ETHAN Comment:Testing performed by : [address] [address] Chloride 106 97 - 110 mmol/L ETHAN Comment:Testing performed by : [address], [place]., [address] CO2 25 22 - 32 mmol/L ETHAN Comment:Testing performed by : [address] [address] Anion gap 9 2 - 15 mmol/L ETHAN Comment:Testing performed by : [address] [address] BUN 29(H) 6 - 25 mg/dL ETHAN Comment:Testing performed by : [address], [place]., [address] Creatinine 0.90 0.80 - 1.30 mg/dL ETHAN Comment:Testing performed by : [address] [address] Glucose 191 70 - 199 mg/dL [facility] Comment: Interpretive Data Fasting glucose >/= 126 mg/dl is diagnostic for diabetes. Fasting is defined as no caloric intake for at least 8 hours. Fasting glucose between 100 mg/dl to 125 mg/dl is diagnostic of prediabetes. In a patient with classic symptoms of hyperglycemia or hyperglycemic crisis, a random glucose >/= 200 mg/dl is diagnostic for diabetes. In the absence of unequivocal hyperglycemia, results should be confirmed by repeat testing. The classification and Diagnosis of Diabetes Diabetes Care 202; 46: S19-S40. Current interpretive data was last revised 2022. Testing performed by: [address] [address] Calcium 8.9 8.5 - 10.3 mg/dL ETHAN Comment:Testing performed by : [address] [address] Bilirubin, total 0.4 0.1 - 1.2 mg/dL ETHAN Comment:Testing performed by : [address] [address] Protein, pl 5.4(L) 6.5 - 8.5 g/dL ETHAN SONG Comment:Testing performed by : [address] [address] Albumin 3.8 3.5 - 5.0 g/dL ETHAN Comment:Testing performed by : [address] [address] Alk phos 66 40 - 130 Units/L ETHAN Comment:Testing performed by : [address] [address] ALT 26 7 - 55 Units/L ETHAN Comment:Testing performed by : [address], [address] AST 19 10 - 50 Units/L ETHAN Comment:Testing performed by : [address] [address] Blood 06/06/2024 7:51 AM CDT 06/06/2024 7:54 AM CDT Shahid Riddle MD LAB BLOOD ORDERABLES Final [facility] esult [facility] [address] [facility] Department of Laboratories [place], [place] [id number] * eGFR (06/02/2024 7:38 AM CDT) eGFR 78 >=60 mL/min/1. 73 m2 Comment: Interpretive Data Reference Interval Normal >/= 90 mL/min/1.73m2 Mildly decreased* 60 - 89 mL/min/1.73m2 Mildly to moderately decreased 45 - 59 mL/min/1.73m2 Moderately to severely decreased 30 - 44 mL/min/1.73m2 Severely decreased 15 - 29 mL/min/1.73m2 Kidney Failure < 15 mL/min/1.73m2 *Relative to young adult level Estimated glomerular filtration rate is determined by the 2020 CKD-EPI equation recommended by the National Kidney Foundation (A Unifying Approach to GFR Estimation: Recommendations of the NKF-ASK Task Force on Reassessing the Inclusion of Race in Diagnosing Kidney Disease, JASN 2020). The CKD-EPI equation should not be used for patients with unstable renal function and has not been validated in children and those over 70. Current interpretive data was last reviewed 2021. Testing performed by: [address] [address] Blood 06/02/2024 7:38 AM CDT 06/02/2024 7:40 AM CDT us Shahid Riddle MD LAB BLOOD ORDERABLES Final R esult [facility] [address] [facility] Department [place] [address] * (ABNORMAL) Differential, auto (06/02/2024 7:38 AM CDT) Neutrophil abs 7.1(H) 1.5 - 6.5 K/cumm Comment:Testing performed by : [address] [address] Imm gran abs 0.5(H) 0.0 - 0.1 K/cumm ETHAN Comment:Testing performed by : [address] [address] Lymphocyte abs 1.1 0.8 - 3.3 K/cumm ETHAN Comment:Testing performed by : [address] [address] Monocyte abs 1.0(H) 0.2 - 0.8 K/cumm ETHAN Comment:Testing performed by : [address] [address] Eosinophil abs 0.0 0.0 - 0.5 K/cumm ETHAN Comment:Testing performed by : [address] [address] Basophil abs 0.1 0.0 - 0.1 K/cumm ETHAN Comment:Testing performed by : [address] [address] Neutrophil pct 72.7 % ETHAN Comment: Interpretive Data Percent cell count reference ranges are not reported, since discordance with absolute values may lead to misinterpretation of CBC data. Current Interpretive Data was last revised on 2017. Testing performed by: [address] [address] Imm gran pct 5.0 % [facility] Comment: Interpretive Data Percent cell count reference ranges are not reported, since discordance with absolute values may lead to misinterpretation of CBC data. Current Interpretive Data was last revised on 2017. Testing performed by: [address] [address] Lymphocyte pct 11.0 % [facility] Comment: Interpretive Data Percent cell count reference ranges are not reported, since discordance with absolute values may lead to misinterpretation of CBC data. Current Interpretive Data was last revised on 2017. Testing performed by: [address] [address] Monocyte pct 10.2 % [facility] Comment: Interpretive Data Percent cell count reference ranges are not reported, since discordance with absolute values may lead to misinterpretation of CBC data. Current Interpretive Data was last revised on 2017. Testing performed by: [address] [address] Eosinophil pct 0.2 % [facility] Comment: Interpretive Data Percent cell count reference ranges are not reported, since discordance with absolute values may lead to misinterpretation of CBC data. Current Interpretive Data was last revised on 2017. Testing performed by: [address] [address] Basophil pct 0.9 % [facility] Comment: Interpretive Data Percent cell count reference ranges are not reported, since discordance with absolute values may lead to misinterpretation of CBC data. Current Interpretive Data was last revised on 2017. Testing performed by: [address] [address] Blood 06/02/2024 7:38 AM CDT 06/02/2024 7:40 AM CDT us Shahid Riddle MD LAB BLOOD ORDERABLES Final R esult [facility]AN [address] [facility] Department [place] [address] * Iron profile w/ IBC (06/02/2024 7:38 AM CDT) Pathologist [facility] Iron 61 50 - 150 mcg/dL Comment:Testing performed by : [address] [address] TIBC 264 250 - 400 mcg/dL ETHAN Comment:Testing performed by : [address] [address] Transferrin saturation 23 20 - 50 % ETHAN Comment:Testing performed by : [address] [address] Blood 06/02/2024 7:38 AM CDT 06/02/2024 9:34 AM CDT us Shahid Riddle MD LAB BLOOD ORDERABLES Final R esult ETHAN [address] [facility] Department [place] [address] * (ABNORMAL) CBC with auto differential (06/02/2024 7:38 AM CDT) [facility] WBC 9.7 3.8 - 9.9 K/cumm Comment:Testing performed by : [address] [address] Hgb 11.2(L) 13.0 - 17.5 g/dL ETHAN SONG Comment:Testing performed by : [address] [address] Hct 35.4(L) 38.9 - 50.3 % ETHAN SONG Comment:Testing performed by : [address] [address] Plt 202 150 - 400 K/cumm ETHAN SONG Comment:Testing performed by : [address] [address] MPV 11.1 9.1 - 12.3 fL ETHAN SONG Comment:Testing performed by : [address] [address] RBC 4.36 4.30 - 5.80 M/cumm ETHAN Comment:Testing performed by : [facility], [address] [place] [address]., [address] MCV 81.2(L) 81.3 - 96.4 fL ETHAN Comment:Testing performed by : [address] [address] MCH 25.7(L) 27.1 - 33.3 pg ETHAN Comment:Testing performed by : [address] [address] MCHC 31.6(L) 32.3 - 35.7 g/dL ETHAN Comment:Testing performed by : [address] [address] RDW CV 18.5(H) 11.1 - 14.9 % ETHAN Comment:Testing performed by : [address] [address] RDW SD 51.8(H) 35.7 - 48.1 fL ETHAN Comment:Testing performed by : [address] [address] NRBC abs 0.05(H) 0.00 - 0.01 K/cumm ETHAN Comment:Testing performed by : [address] [address] Blood 06/02/2024 7:38 AM CDT 06/02/2024 7:40 AM CDT Shahid Riddle MD LAB BLOOD ORDERABLES Final R esult [facility] [address] [facility] Department of Laboratories [place], [place] [id number] * Lactate dehydrogenase (LD) (06/02/2024 7:38 AM CDT) Lactate dehydrogenase (LDH) 245 100 - 250 Units/L Comment:Testing performed by : [address] [address] Blood 06/02/2024 7:38 AM CDT 06/02/2024 7:40 AM CDT us Shahid Riddle MD LAB BLOOD ORDERABLES Final R esult Performing Organization Address City/[facility] Co de Phone Number ETHAN [address] [place] [address] * (ABNORMAL) Ferritin (06/02/2024 7:38 AM CDT) Ferritin 948(H) 30 - 400 ng/mL Comment:Testing performed by : [address] [address] Blood 06/02/2024 7:38 AM CDT 06/02/2024 9:34 AM CDT Shahid Riddle MD LAB BLOOD ORDERABLES Final R esult Performing Organization Address [facility] Co de Phone Number ETHAN [address] [address] * (ABNORMAL) Comprehensive metabolic panel (06/02/2024 7:38 AM CDT) Pathologist [facility] Sodium 139 135 - 145 mmol/L Comment:Testing performed by : [address] [address] Potassium, pl 4.2 3.3 - 4.9 mmol/L ETHAN Comment:Testing performed by : [address] [address] Chloride 107 97 - 110 mmol/L ETHAN Comment:Testing performed by : [address] [address] CO2 22 22 - 32 mmol/L ETHAN Comment:Testing performed by : [address] [address] Anion gap 10 2 - 15 mmol/L ETHAN Comment:Testing performed by : [address] [address] BUN 17 6 - 25 mg/dL ETHAN Comment:Testing performed by : [address] [address] Creatinine 1.10 0.80 - 1.30 mg/dL ETHAN Comment:Testing performed by : [address] [address] Glucose 134 70 - 199 mg/dL ETHAN Comment: Interpretive Data Fasting glucose >/= 126 mg/dl is diagnostic for diabetes. Fasting is defined as no caloric intake for at least 8 hours. Fasting glucose between 100 mg/dl to 125 mg/dl is diagnostic of prediabetes. In a patient with classic symptoms of hyperglycemia or hyperglycemic crisis, a random glucose >/= 200 mg/dl is diagnostic for diabetes. In the absence of unequivocal hyperglycemia, results should be confirmed by repeat testing. The classification and Diagnosis of Diabetes Diabetes Care 2021; 46: S19-S40. Current interpretive data was last revised 2022. Testing performed by: [address] [address] Calcium 9.2 8.5 - 10.3 mg/dL ETHAN Comment:Testing performed by : [address] [address] Bilirubin, total 0.3 0.1 - 1.2 mg/dL ETHAN Comment:Testing performed by : [address] [address] Protein, pl 5.9(L) 6.5 - 8.5 g/dL ETHAN Comment:Testing performed by : [address] [address] Albumin 4.0 3.5 - 5.0 g/dL ETHAN Comment:Testing performed by : [address] [address] Alk phos 91 40 - 130 Units/L ETHAN Comment:Testing performed by : [address] [address] ALT 30 7 - 55 Units/L ETHAN Comment:Testing performed by : [address] [address] AST 25 10 - 50 Units/L ETHAN Comment:Testing performed by : [address] [address] Blood 06/02/2024 7:38 AM CDT 06/02/2024 7:40 AM CDT us Shahid Riddle MD LAB BLOOD ORDERABLES Final R esult ETHAN MH [address] [facility] Department [place] [address] * TRANSTHORACIC ECHO (TTE) COMPLETE W DOPPLER/CF W CONTRAST (05/30/2024 2:57 PM CDT) LV EF 50-55 % CONS SCIMAGE Anatomical Region Laterality Modality Ultrasound 05/30/2024 2:08 PM CDT Narrative 05/31/2024 10:49 AM CDT Transthoracic Echocardiographic Report Patient Name: SONALI GAETS H : 1965 (59y ) Gender: M Study Date: 05/30/2024 02:08:16 PM Ht(Inch): 75 Wt(Lb): 264 BSA: 2.52 Prop Attendant: DILEEP Wu Order Provider: ELAN RIDDLE Heart Rate: 68 BMI: 32.99 BP: 121 / 75 Ref Provider: ELAN RIDDLE PROCEDURES: Echocardiographic Report: ([id number]) Transthoracic complete echo with contrast, 2D, spectral and tissue Doppler, color flow Doppler, M-mode. INDICATIONS: I50.22 Chronic systolic (congestive) heart failure. FINDINGS: Left Ventricle: Normal left ventricular cavity size. Normal Left ventricular wall thickness. Mildly depressed left ventricular systolic function. The Ejection Fraction is visually estimated to be 50-55 %. Diastolic Function Left ventricular diastolic parameters are consistent with Grade I diastolic dysfunction (normal LA pressure). Regional Wall Motion: There is akinesis in the apical septum, apical anterior segment and apex. Right Ventricle: Normal right ventricular size. Normal right ventricular systolic function. Left Atrium: The left atrium is normal in size. Right Atrium: The right atrium is normal in size. Catheter tip noted in right atrium. Atrial Septum: No shunt by color Doppler. Mitral Valve: Normal mitral valve leaflet structure. There is trace mitral valve regurgitation. No mitral valve stenosis. Aortic Valve: Trileaflet aortic valve. No aortic regurgitation seen. No aortic valve stenosis. The mean transaortic gradient is 4 mmHg. Tricuspid Valve: The tricuspid valve demonstrates normal leaflet structure. There is trace to mild tricuspid valve regurgitation. Normal estimated pulmonary artery systolic pressure. Pulmonic Valve: Pulmonic Valve not well visualized due to poor echo windows. Pericardium: No pericardial effusion noted. Aorta: Normal aortic root. The aortic Sinus is normal in size. IVC: IVC is normal in size. CONCLUSIONS: 1. Technically Difficult Study. 2. Mildly depressed left ventricular systolic function. The Ejection Fraction is visually estimated to be 50-55 %. Diastolic Function Left ventricular diastolic parameters are consistent with Grade I diastolic dysfunction (normal LA pressure). 3. Catheter tip noted in right atrium. 4. There is trace mitral valve regurgitation. 5. There is trace to mild tricuspid valve regurgitation. Normal estimated pulmonary artery systolic pressure. 6. There is akinesis in the apical septum, apical anterior segment and apex. 7. No left ventricular thrombus noted. MEASUREMENTS: 2D/MM Value Range Doppler Value LVIDd 2D 5.10 cm [ 3.50 - 5.70 ] AV Peak Merlin 1.46 m/s LVIDs 2D 3.75 cm [ 3.10 - 4.60 ] AV Peak PG 8.53 mmHg IVSd 2D 1.27 cm [ 0.60 - 1.20 ] AV Mean PG 4.00 mmHg LVPWd 2D 1.34 cm [ 0.60 - 1.10 ] AV VTI 26.90 cm LV Thickness Ratio 0.95 LVOT Peak Merlin 1.07 m/s LV Mass 2D 275.80 g LVOT Peak PG 4.58 mmHg LV Mass Index 2D 109.44 g/m2 LVOT Mean PG 2.00 mmHg RWT 0.53 LVOT VTI 19.70 cm EDV Mod BP 156.00 ml [ 62.00 - 150.00 ] LVOT Diam 2.40 cm LV EDV Index 61.90 ml/m2 YOLANDA VTI 3.31 cm2 ESV Mod BP 69.70 ml [ 21.00 - 61.00 ] YOLANDA Vmax 3.31 cm2 Visually Estimated EF 50-55 % LVOT/AV VTI 0.73 - Dimensionless index (DVI) LA Dimension 2D 4.00 cm [ 1.90 - 4.00 ] MV E Peak Merlin 0.43 m/s LA Length 2C 5.42 cm MV A Peak Merlin 0.86 m/s LA Length 4C 4.65 cm MV E/A 0.50 ratio LA Volume BP 70.30 ml MV Decel Time 346.00 msec LA Volume Index 27.90 ml/m2 [ 16.00 - 34.00 ] Med E` Merlin 3.92 cm/sec RV Base Dimen 2D 3.6 cm [ 2.5 - 4.2 ] Lat E` Merlin 6.09 cm/sec TAPSE 1.94 cm [ 1.71 - 5.00 ] Average E/E` 8.59 RA Volume 56.20 ml RV S` 8.49 cm/sec RA Volume Index 22.30 ml/m2 TR Peak Merlin 2.46 m/s IVC Diam 2.14 cm TR Peak PG 24.2 mmHg AoR Diam 2D 3.40 cm [ 2.00 - 3.70 ] PV Peak Merlin 1.00 m/s Ao Root Index 1.35 cm/m2 [ 1.00 - 2.00 ] PV Peak PG 4.00 mmHg Asc Ao Diam 2D 3.10 cm PV Mean PG 2.00 mmHg Asc Ao Index 1.23 cm/m2 RVOT VTI 15.20 - ATTESTATION: I have reviewed and interpreted the pertinent images and measurements of this study. I attest to the conclusions in the final report that is provided above. DISCLAIMER: The study images and the final report will be retained in the patient chart by the Echo Laboratory for the legally required time period. This chart constitutes the legal record of any testing performed. Electronically Signed By: Rocael Galvan MD 05/31/2024 10:49:24 AM CDT Procedure Note Rocael Galvan MD - 05/31/2024 Transthoracic Echocardiographic Report Patient Name: SONALI GATES H : 1965 (59y ) Gender: M Study Date: 05/30/2024 02:08:16 PM Ht(Inch): 75 Wt(Lb): 264 BSA: 2.52 Prop Attendant: DILEEP Wu Order Provider: ELAN RIDDLE Heart Rate: 68 BMI: 32.99 BP: 121 / 75 Ref Provider: ELAN RIDDLE PROCEDURES: Echocardiographic Report: ([id number]) Transthoracic complete echo withcontrast, 2D, spectral and tissue Doppler, color flow Doppler, M-mode. INDICATIONS: I50.22 Chronic systolic (congestive) heart failure. FINDINGS: Left Ventricle: Normal left ventricular cavity size. Normal Leftventricular wall thickness. Mildly depressed left ventricular systolic function. TheEjection Fraction is visually estimated to be 50-55 %. Diastolic Function Left ventriculardiastolic parameters are consistent with Grade I diastolic dysfunction (normal LApressure). Regional Wall Motion: There is akinesis in the apical septum, apicalanterior segment and apex. Right Ventricle: Normal right ventricular size. Normal right ventricularsystolic function. Left Atrium: The left atrium is normal in size. Right Atrium: The right atrium is normal in size. Catheter tip noted inright atrium. Atrial Septum: No shunt by color Doppler. Mitral Valve: Normal mitral valve leaflet structure. There is trace mitralvalve regurgitation. No mitral valve stenosis. Aortic Valve: Trileaflet aortic valve. No aortic regurgitation seen. Noaortic valve stenosis. The mean transaortic gradient is 4 mmHg. Tricuspid Valve: The tricuspid valve demonstrates normal leafletstructure. There is trace to mild tricuspid valve regurgitation. Normal estimated pulmonaryartery systolic pressure. Pulmonic Valve: Pulmonic Valve not well visualized due to poor echowindows. Pericardium: No pericardial effusion noted. Aorta: Normal aortic root. The aortic Sinus is normal in size. IVC: IVC is normal in size. CONCLUSIONS: 1. Technically Difficult Study. 2. Mildly depressed left ventricular systolic function. The EjectionFraction is visually estimated to be 50-55 %. Diastolic Function Left ventricular diastolicparameters are consistent with Grade I diastolic dysfunction (normal LA pressure). 3. Catheter tip noted in right atrium. 4. There is trace mitral valve regurgitation. 5. There is trace to mild tricuspid valve regurgitation. Normal estimatedpulmonary artery systolic pressure. 6. There is akinesis in the apical septum, apical anterior segment andapex. 7. No left ventricular thrombus noted. MEASUREMENTS: 2D/MM Value Range DopplerValue LVIDd 2D 5.10 cm [ 3.50 - 5.70 ] AV Peak Vel1.46 m/s LVIDs 2D 3.75 cm [ 3.10 - 4.60 ] AV Peak PG8.53 mmHg IVSd 2D 1.27 cm [ 0.60 - 1.20 ] AV Mean PG4.00 mmHg LVPWd 2D 1.34 cm [ 0.60 - 1.10 ] AV VTI26.90 cm LV Thickness Ratio 0.95 LVOT PeakVel 1.07 m/s LV Mass 2D 275.80 g LVOT Peak PG4.58 mmHg LV Mass Index 2D 109.44 g/m2 LVOT Mean PG2.00 mmHg RWT 0.53 LVOT VTI19.70 cm EDV Mod BP 156.00 ml [ 62.00 - 150.00 ] LVOT Diam2.40 cm LV EDV Index 61.90 ml/m2 YOLANDA VTI3.31 cm2 ESV Mod BP 69.70 ml [ 21.00 - 61.00 ] YOLANDA Vmax3.31 cm2 Visually Estimated EF 50-55 % LVOT/AV VTI0.73 - Dimensionless index (DVI) LA Dimension 2D 4.00 cm [ 1.90 - 4.00 ] MV E PeakVel 0.43 m/s LA Length 2C 5.42 cm MV A PeakVel 0.86 m/s LA Length 4C 4.65 cm MV E/A0.50 ratio LA Volume BP 70.30 ml MV DecelTime 346.00 msec LA Volume Index 27.90 ml/m2 [ 16.00 - 34.00 ] Med E` Vel3.92 cm/sec RV Base Dimen 2D 3.6 cm [ 2.5 - 4.2 ] Lat E` Vel6.09 cm/sec TAPSE 1.94 cm [ 1.71 - 5.00 ] Average E/E`8.59 RA Volume 56.20 ml RV S`8.49 cm/sec RA Volume Index 22.30 ml/m2 TR Peak Vel2.46 m/s IVC Diam 2.14 cm TR Peak PG24.2 mmHg AoR Diam 2D 3.40 cm [ 2.00 - 3.70 ] PV Peak Vel1.00 m/s Ao Root Index 1.35 cm/m2 [ 1.00 - 2.00 ] PV Peak PG4.00 mmHg Asc Ao Diam 2D 3.10 cm PV Mean PG2.00 mmHg Asc Ao Index 1.23 cm/m2 RVOT VTI15.20 - ATTESTATION: I have reviewed and interpreted the pertinent images and measurements ofthis study. I attest to the conclusions in the final report that is provided above. DISCLAIMER: The study images and the final report will be retained in the patientchart by the [facility] for the legally required time period. This chart constitutesthe legal record of any testing performed. Electronically Signed By: Rocael Galvan MD 05/31/2024 10:49:24 AM CDT [facility] Cali Riddle MD CV ECHO PROCEDURES Catherine l Result * eGFR (05/30/2024 8:40 AM CDT) eGFR >90 >=60 mL/min/1. 73 m2 Comment: Interpretive Data Reference Interval Normal >/= 90 mL/min/1.73m2 Mildly decreased* 60 - 89 mL/min/1.73m2 Mildly to moderately decreased 45 - 59 mL/min/1.73m2 Moderately to severely decreased 30 - 44 mL/min/1.73m2 Severely decreased 15 - 29 mL/min/1.73m2 Kidney Failure < 15 mL/min/1.73m2 *Relative to young adult level Estimated glomerular filtration rate is determined by the 2020 CKD-EPI equation recommended by the National Kidney Foundation (A Unifying Approach to GFR Estimation: Recommendations of the NKF-ASK Task Force on Reassessing the Inclusion of Race in Diagnosing Kidney Disease, JASN 202). The CKD-EPI equation should not be used for patients with unstable renal function and has not been validated in children and those over 70. Current interpretive data was last reviewed 2021. Testing performed by: [address] [address] Blood 05/30/2024 8:40 AM CDT 05/30/2024 8:44 AM CDT Shahid Riddle MD LAB BLOOD ORDERABLES Final R esult [facility] [address] [facility] Department of Laboratories [place], [place] [id number] * (ABNORMAL) Differential, auto (05/30/2024 8:40 AM CDT) Neutrophil abs 11.1(H) 1.5 - 6.5 K/cumm Comment:Testing performed by : [address] [address] Imm gran abs 2.4(H) 0.0 - 0.1 K/cumm ETHAN Comment:Testing performed by : [address] [address] Lymphocyte abs 1.2 0.8 - 3.3 K/cumm ETHAN Comment:Testing performed by : [address] [address] Monocyte abs 1.2(H) 0.2 - 0.8 K/cumm ETHAN Comment:Testing performed by : [address] [address] Eosinophil abs 0.1 0.0 - 0.5 K/cumm [facility] Comment:Testing performed by : [address] [address] Basophil abs 0.1 0.0 - 0.1 K/cumm [facility] Comment:Testing performed by : [address] [address] Neutrophil pct 69.4 % [facility] Comment: Interpretive Data Percent cell count reference ranges are not reported, since discordance with absolute values may lead to misinterpretation of CBC data. Current Interpretive Data was last revised on 2017. Testing performed by: [address] [address] Imm gran pct 15.1 % [facility] Comment: Interpretive Data Percent cell count reference ranges are not reported, since discordance with absolute values may lead to misinterpretation of CBC data. Current Interpretive Data was last revised on 2017. Testing performed by: [address] [address] Lymphocyte pct 7.2 % [facility] Comment: Interpretive Data Percent cell count reference ranges are not reported, since discordance with absolute values may lead to misinterpretation of CBC data. Current Interpretive Data was last revised on 2017. Testing performed by: [address] [address] Monocyte pct 7.2 % [facility] Comment: Interpretive Data Percent cell count reference ranges are not reported, since discordance with absolute values may lead to misinterpretation of CBC data. Current Interpretive Data was last revised on 2017. Testing performed by: [address] [address] Eosinophil pct 0.3 % [facility] Comment: Interpretive Data Percent cell count reference ranges are not reported, since discordance with absolute values may lead to misinterpretation of CBC data. Current Interpretive Data was last revised on 2017. Testing performed by: [address] [address] Basophil pct 0.8 % [facility] Comment: Interpretive Data Percent cell count reference ranges are not reported, since discordance with absolute values may lead to misinterpretation of CBC data. Current Interpretive Data was last revised on 2017. Testing performed by: [address] [address] Blood 05/30/2024 8:40 AM CDT 05/30/2024 8:44 AM CDT us Shahid Riddle MD LAB BLOOD ORDERABLES Final [facility] esult [facility] [address] [facility] Department [place] [address] * (ABNORMAL) CBC with auto differential (05/30/2024 8:40 AM CDT) WBC 16.1(H) 3.8 - 9.9 K/cumm Comment:Testing performed by : [address] [address] Hgb 11.5(L) 13.0 - 17.5 g/dL ETHAN Comment:Testing performed by : [address] [address] Hct 36.1(L) 38.9 - 50.3 % ETHAN Comment:Testing performed by : [address] [address] Plt 123(L) 150 - 400 K/cumm ETHAN Comment:Testing performed by : [address] [address] MPV 10.6 9.1 - 12.3 fL ETHAN Comment:Testing performed by : [address] [address] RBC 4.47 4.30 - 5.80 M/cumm ETHAN Comment:Testing performed by : [address] [address] MCV 80.8(L) 81.3 - 96.4 fL ETHAN Comment:Testing performed by : [address] [address] MCH 25.7(L) 27.1 - 33.3 pg ETHAN Comment:Testing performed by : [address] [place]., [address] MCHC 31.9(L) 32.3 - 35.7 g/dL ETHAN SONG Comment:Testing performed by : [address] [address] RDW CV 18.4(H) 11.1 - 14.9 % ETHAN SONG Comment:Testing performed by : [address] [address] RDW SD 51.6(H) 35.7 - 48.1 fL ETHAN SONG Comment:Testing performed by : [address] [address] NRBC abs 0.08(H) 0.00 - 0.01 K/cumm ETHAN SONG Comment:Testing performed by : [address] [address] Blood 05/30/2024 8:40 AM CDT 05/30/2024 8:44 AM CDT us Shahid Riddle MD LAB BLOOD ORDERABLES Final R esult [facility] [facility] Department of Laboratories [place], [place] [id number] * (ABNORMAL) Comprehensive metabolic panel (05/30/2024 8:40 AM CDT) Sodium 139 135 - 145 mmol/L Comment:Testing performed by : [address] [address] Potassium, pl 4.2 3.3 - 4.9 mmol/L ETHAN SONG Comment:Testing performed by : [address] [address] Chloride 107 97 - 110 mmol/L ETHAN SONG Comment:Testing performed by : [address] [address] CO2 23 22 - 32 mmol/L ETHAN SONG Comment:Testing performed by : [address] [address] Anion gap 9 2 - 15 mmol/L ETHAN SONG Comment:Testing performed by : [address] [address] BUN 16 6 - 25 mg/dL [facility] Comment:Testing performed by : [address] [address] Creatinine 0.90 0.80 - 1.30 mg/dL ETHAN Comment:Testing performed by : [address] [address] Glucose 166 70 - 199 mg/dL [facility] Comment: Interpretive Data Fasting glucose >/= 126 mg/dl is diagnostic for diabetes. Fasting is defined as no caloric intake for at least 8 hours. Fasting glucose between 100 mg/dl to 125 mg/dl is diagnostic of prediabetes. In a patient with classic symptoms of hyperglycemia or hyperglycemic crisis, a random glucose >/= 200 mg/dl is diagnostic for diabetes. In the absence of unequivocal hyperglycemia, results should be confirmed by repeat testing. The classification and Diagnosis of Diabetes Diabetes Care 2021; 46: S19-S40. Current interpretive data was last revised 2022. Testing performed by: [address] [address] Calcium 9.0 8.5 - 10.3 mg/dL [facility] Comment:Testing performed by : [address] [address] Bilirubin, total 0.2 0.1 - 1.2 mg/dL [facility] Comment:Testing performed by : [address] [address] Protein, pl 5.9(L) 6.5 - 8.5 g/dL [facility] Comment:Testing performed by : [address] [address] Albumin 4.0 3.5 - 5.0 g/dL [facility] Comment:Testing performed by : [address] [address] Alk phos 107 40 - 130 Units/L ETHAN Comment:Testing performed by : [address] [address] ALT 27 7 - 55 Units/L ETHAN Comment:Testing performed by : [address] [address] AST 23 10 - 50 Units/L ETHAN Comment:Testing performed by : [address] [address] Blood 05/30/2024 8:40 AM CDT 05/30/2024 8:44 AM CDT Shahid Riddle MD LAB BLOOD ORDERABLES Final R esult ETHAN [facility] [place] [address] * eGFR (05/26/2024 8:36 AM CDT) eGFR 87 >=60 mL/min/1. 73 m2 Comment: Interpretive Data Reference Interval Normal >/= 90 mL/min/1.73m2 Mildly decreased* 60 - 89 mL/min/1.73m2 Mildly to moderately decreased 45 - 59 mL/min/1.73m2 Moderately to severely decreased 30 - 44 mL/min/1.73m2 Severely decreased 15 - 29 mL/min/1.73m2 Kidney Failure < 15 mL/min/1.73m2 *Relative to young adult level Estimated glomerular filtration rate is determined by the 2020 CKD-EPI equation recommended by the National Kidney Foundation (A Unifying Approach to GFR Estimation: Recommendations of the NKF-ASK Task Force on Reassessing the Inclusion of Race in Diagnosing Kidney Disease, JASN 2020). The CKD-EPI equation should not be used for patients with unstable renal function and has not been validated in children and those over 70. Current interpretive data was last reviewed 2021. Testing performed by: [address] [address] Blood 05/26/2024 8:36 AM CDT 05/26/2024 8:48 AM CDT us Shahid Riddle MD LAB BLOOD ORDERABLES Final R esult [facility] [address] [facility] [place] [address] * (ABNORMAL) CBC with auto differential (05/26/2024 8:36 AM CDT) [facility] WBC 15.4(H) 3.8 - 9.9 K/cumm Comment:Testing performed by : [address], [address] Hgb 11.4(L) 13.0 - 17.5 g/dL ETHAN Comment:Testing performed by : [address], [address] Hct 35.2(L) 38.9 - 50.3 % ETHAN Comment:Testing performed by : [address], [address] Plt 55(L) 150 - 400 K/cumm ETHAN Comment:Testing performed by : [address], [address] MPV Not Measured 9.1 - 12.3 fL ETHAN Comment:Testing performed by : [address], [address] RBC 4.38 4.30 - 5.80 M/cumm ETHAN Comment:Testing performed by : [address], [address] MCV 80.4(L) 81.3 - 96.4 fL ETHAN Comment:Testing performed by : [address], [address] MCH 26.0(L) 27.1 - 33.3 pg ETHAN Comment:Testing performed by : [address], [address] MCHC 32.4 32.3 - 35.7 g/dL ETHAN Comment:Testing performed by : [address], [address] RDW CV 18.4(H) 11.1 - 14.9 % ETHAN Comment:Testing performed by : [address], [address] RDW SD 53.2(H) 35.7 - 48.1 fL ETHAN Comment:Testing performed by : [address], [address] NRBC abs 0.17(H) 0.00 - 0.01 K/cumm ETHAN Comment:Testing performed by : [address] [address] Blood 05/26/2024 8:36 AM CDT 05/26/2024 8:48 AM CDT Shahid Riddle MD LAB BLOOD ORDERABLES Edited Result - Final [facility] [address] [facility] Department [place] [address] * (ABNORMAL) Manual Differential (05/26/2024 8:36 AM CDT) Differential Manual Comment:Testing performed by : [address] [address] Cells Counted 100 ETHAN Comment:Testing performed by : [address] [address] Neutrophil abs 10.8(H) 1.5 - 6.5 K/cumm ETHAN Comment:Testing performed by : [address] [address] Imm gran abs 1.7(H) 0.0 - 0.1 K/cumm ETHAN Comment:Testing performed by : [address] [address] Lymphocyte abs 2.5 0.8 - 3.3 K/cumm ETHAN Comment:Testing performed by : [address] [address] Monocyte abs 0.5 0.2 - 0.8 K/cumm ETHAN Comment:Testing performed by : [address] [address] Neutrophil pct 55.0 % ETHAN Comment: Interpretive Data Percent cell count reference ranges are not reported, since discordance with absolute values may lead to misinterpretation of CBC data. Current Interpretive Data was last revised on 2017. Testing performed by: [address] [address] Lymphocyte pct 16.0 % ETHAN Comment: Interpretive Data Percent cell count reference ranges are not reported, since discordance with absolute values may lead to misinterpretation of CBC data. Current Interpretive Data was last revised on 2017. Testing performed by: [facility], [address] [place] [address], [place]., [address] Monocyte pct 3.0 % ETHAN Comment: Interpretive Data Percent cell count reference ranges are not reported, since discordance with absolute values may lead to misinterpretation of CBC data. Current Interpretive Data was last revised on 2017. Testing performed by: [address], [place]., [address] Band Neutrophil pct 15.0(H) 0.0 - 5.0 % ETHAN Comment:Testing performed by : [address], [place]., [address] Metamyelocyte pct 9.0(H) 0.0 - 0.0 % ETHAN Comment:Testing performed by : [address] [address] Myelocyte pct 2.0(H) 0.0 - 0.0 % ETHAN Comment:Testing performed by : [address], [place]., [address] RBC morphology Consistent with RBC Indicies ETHAN Comment:Testing performed by : [address], [place]., [address] Platelet estimate Decreased(A) ETHAN Comment:Testing performed by : [address] [address] Blood 05/26/2024 8:36 AM CDT 05/26/2024 8:48 AM CDT us Shahid Riddle MD LAB BLOOD ORDERABLES Final R esult ETHAN [address] [facility] Department [place] [address] * (ABNORMAL) Comprehensive metabolic panel (05/26/2024 8:36 AM CDT) [facility] Sodium 142 135 - 145 mmol/L Comment:Testing performed by : [facility], [address] [place] [address], [place]., [address] Potassium, pl 3.8 3.3 - 4.9 mmol/L ETHAN Comment:Testing performed by : [address], [place]., [address] Chloride 109 97 - 110 mmol/L ETHAN Comment:Testing performed by : [address], [place]., [address] CO2 24 22 - 32 mmol/L ETHAN Comment:Testing performed by : [address], [place]., [address] Anion gap 9 2 - 15 mmol/L ETHAN Comment:Testing performed by : [address], [place]., [address] BUN 12 6 - 25 mg/dL ETHAN Comment:Testing performed by : [address], [place]., [address] Creatinine 1.00 0.80 - 1.30 mg/dL ETHAN Comment:Testing performed by : [address], [place]., [address] Glucose 123 70 - 199 mg/dL [facility] Comment: Interpretive Data Fasting glucose >/= 126 mg/dl is diagnostic for diabetes. Fasting is defined as no caloric intake for at least 8 hours. Fasting glucose between 100 mg/dl to 125 mg/dl is diagnostic of prediabetes. In a patient with classic symptoms of hyperglycemia or hyperglycemic crisis, a random glucose >/= 200 mg/dl is diagnostic for diabetes. In the absence of unequivocal hyperglycemia, results should be confirmed by repeat testing. The classification and Diagnosis of Diabetes Diabetes Care 202; 46: S19-S40. Current interpretive data was last revised 2022. Testing performed by: [address] [address] Calcium 9.2 8.5 - 10.3 mg/dL ETHAN Comment:Testing performed by : [address], [place]., [address] Bilirubin, total 0.2 0.1 - 1.2 mg/dL ETHAN Comment:Testing performed by : [address] [address] Protein, pl 6.0(L) 6.5 - 8.5 g/dL ETHAN Comment:Testing performed by : [address] [address] Albumin 4.0 3.5 - 5.0 g/dL ETHAN Comment:Testing performed by : [address] [address] Alk phos 103 40 - 130 Units/L ETHAN Comment:Testing performed by : [address] [address] ALT 28 7 - 55 Units/L ETHAN Comment:Testing performed by : [address] [address] AST 27 10 - 50 Units/L ETHAN Comment:Testing performed by : [address] [address] Blood 05/26/2024 8:36 AM CDT 05/26/2024 8:48 AM CDT us Shahid Riddle MD LAB BLOOD ORDERABLES Final R esult ETHAN [address] [facility] Department [place] [address] * Hepatitis C antibody Blood (02/18/2024 12:48 PM PATIENT RELATIONS LIAISON) Hep C Ab Nonreactive Nonreactive Comment: Antibodies to HCV not detected. Does NOT exclude the possibility of recent exposure to HCV. Current interpretive data was last revised on 21 Interpretive Data Nonreactive: Antibodies to HCV not detected. Does NOT exclude the possibility of recent exposure to HCV. Equivocal: Equivocal for HCV antibodies. Supplemental molecular testing will be automatically performed to determine infection status in accordance with current CDC screening recommendations. Reactive: Positive for HCV antibodies. This may represent current or past HCV infection. Supplemental molecular testing will be automatically performed to determine current infection status in accordance with current CDC screening recommendations. Interpretive data was last revised on 2019. Blood 02/18/2024 12:4 8 PM PATIENT RELATIONS LIAISON 02/18/2024 2:24 PM PATIENT RELATIONS LIAISON Shahid Riddle MD LAB MICROBIOLOGY - GENERAL O RDERABLES Final Result [facility] [address] [facility] Department [place] [address] from Last 3 Months or Most Recently Relevant to Health Maintenance Insurance [facility] HMO [facility] HMO [facility] HMO Advance Directives For more information, please contact: [phone] * Full Code (Latest Code Status on File) Date Activated Date Inactivated Comments 03/23/2024 11:00 PM 03/28/2024 9:22 PM * Full Code Date Activated Date Inactivated Comments 03/23/2024 10:41 PM 03/23/2024 11:00 PM * Full Code Date Activated Date Inactivated Comments 02/08/2024 7:18 AM 02/09/2024 5:17 AM Care Teams Estate Tax Examiner Relationship Specialty Start Date End Date Peter Keita MD [address] [facility] [address] [address] PCP - General Family Medicine 04/14/24 Babita Smart MD [address] [facility] [address] [address] 01/11/24 Holden Miller MD PhD [address] [place] [address] MEDICAL ONCOLOGY, [address] [address] Consulting Physician Medical Oncology 01/22/24 Shahid Riddle MD [address] [place] [address] Consulting Physician Internal Medicine 02/16/24 Elan Riddle MD [address] [facility] [address], [place] [address] Consulting Physician Interventional Cardiology 02/18/24 Peter Keita MD [address] [facility] [address] [place] [address] Referring Physician Family Medicine 02/18/24
--- OUTSIDE RECORDS SUMMARY | 2024-08-24 16:59 | XMS_ITS | Encounter Summary ---
Author Organization [facility] Address [address] [place] [address] Phone Care Team Providers Care Packaging Sales Consultant Name Role Phone Babita Smart MD Unavailable [phone] Holden Miller MD PhD Unavailable Shahid Riddle MD Unavailable [phone] Liam Riddle MD Unavailable [phone] Peter Keita MD Unavailable [phone] Peter Keita MD Primary Care Provider Encounter Details Date Type Department Care Team (Late st Contact Info) Description 08/24/2024 Telephone [facility] Cardiology [address] [facility] 8th [place] [address] [place] [address] Bridgette Elaine Social History Tobacco Use Types Packs/Day Years [...] on file Legal Sex Male 2:34 AM [employer]IPPLE [employer] Gender Identity Male 12/19/2023 7:33 PM CDT Sexual Orientation Straight 12/19/2023 7: 33 PM CDT documented as of this encounter Miscellaneous Notes * Telephone Encounter - CheleLesleyBridgette - 08/24/2024 11:42 AM CDT Please contact pt to schedule apt. W/Dr. Driscoll per Dr. Madison. Please use urgent slot. 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 Plan of Treatment Not on file documented as of this encounter Visit Diagnoses Not on filedocumented in this encounter Care Teams Packaging Sales Consultant Relationship Specialty Start Date End Date Peter Keita MD [address] [place] [address] PCP - General Family Medicine 04/14/24 Babita Smart MD [address] [place] [address] 01/11/24 Holden Miller MD PhD [address] [place] [address] MEDICAL ONCOLOGY, [address] [place] [address] Consulting Physician Medical Oncology 01/22/24 Shahid Riddle MD [address] [place] [address] Consulting Physician Internal Medicine 02/16/24 Liam Riddle MD [address] [facility] [address] [place] [address] Consulting Physician Interventional Cardiology 02/18/24 Peter Keita MD [address] [facility] [address] [place] [address] Referring Physician Family Medicine 02/18/24 documented as of this encounter
--- OUTSIDE RECORDS SUMMARY | 2024-08-24 16:59 | XMS_ITS | Encounter Summary ---
Author Organization [facility] Address [address] [place] [address] Care Team Providers Care Assembler [place] Head Name Role Phone Unavailable Primary Care Provider Unavailabl e Encounter Details Date Type Department Care Team (Late st Contact Info) Description 12/29/2023 Lab Requisition [facility] - Pathology Lab [address] [place] [id number] Kyrie Baker MD [address] [place] [id number] Benign neoplasm of mediastinum Social History Tobacco Use Types Packs/Day Years Used Date Smoking Tobacco: Never Assessed Sex and Gender Information Value Date Recorded Sex Assigned at Not on file Legal Sex Male 3:43 PM CDT Gender Identity Not on file Sexual Orientation Not on file documented as of this encounter Plan of Treatment Not on file documented as of this encounter Procedures Procedure Name Priority Date/Time Associated Diagnosis Comments FLOW CYTOMETRY TISSUE PANEL Routine 12/29/2023 10:17 AM CDT Benign neoplasm of mediastinum documented in this encounter Results * FLOW CYTOMETRY TISSUE PANEL (12/29/2023 10:17 AM CDT) Case Report Flow Cytometry Case: [id number] Authorizing Provider: Kyrie Baker Collected: 12/29/2023 10:17 AM MD Azam Ordering Location: [facility] - Received: 12/29/2023 03:46 PM Pathology Lab Pathologist: Leslie Maxwell MD Specimen: Mediastinum Mass 12/29/2023 4:49 PM CDT [facility] Final Diagnosis Mediastinal mass, flow cytometric immunophenotypic analysis: - Insufficient hematopoietic cells for analysis - See interpretation 12/29/2023 4:49 PM [facility] at 1649 CDT Flow Cytometry Interpretation Preliminary characterization of the mediastinal mass specimen demonstrates too few hematopoietic cells for flow cytometric analysis. A cytospin prepared from the flow cytometry specimen is reviewed for clinical quality analyst purposes. Flow cytometry is not performed. 12/29/2023 4:49 PM [facility] Flow Cytometry Results Too few hematopoietic cells for flow cytometric analysis. 12/29/2023 4:49 PM CDT [facility] Reason for test Benign neoplasm of mediastinum 212.5 12/29/2023 4:49 PM [facility] Client Specimen ID # [id number] 12/29/2023 4:49 PM [facility] Pathologist Location at [facility] 12/29/2023 4:49 PM CDT [facility] Disclaimer Test performed at [facility], [address] [place] [address], [id number]. *The established laboratory minimum viability is 70%. Values below the minimum may result in the failure to find an abnormal population of cells. This test was developed and its performance characteristics determined by the Flow Cytometry Laboratory. It has not been cleared by the [place] Food and Drug Administration (FDA). The FDA has determined that such clearance or approval is not necessary. This test is used for clinical purposes. It should not be regarded as investigational or for research. This laboratory is regulated under the Clinical Laboratory Improvement Amendments of 1998 (CLIA) as a qualified to perform high complexity clinical testing. 12/29/2023 4:49 PM CDT [facility] Embedded Images 4:49 PM CDT [facility] Pathology/Cytolo gy MEDIASTINAL MASS / Unknown 12/29/2023 10:17 AM CDT 12/29/2023 3:46 PM CDT Kyrie Baker MD LAB - PATHOLOGY/CYT OLOGY ORDERABLES Final Result [facility] [address] [place] [address], [facility] [phone] documented in this encounter Visit Diagnoses Diagnosis Benign neoplasm of mediastinum documented in this encounter
--- OUTSIDE RECORDS SUMMARY | 2024-08-24 16:59 | XMS_ITS | Clinical Summary ---
Author Organization [facility] Address [address] [place] [address] Care Team Providers Care Curve Cleaner Name Role Phone Babita Smart MD Unavailable [phone] Holden Miller MD PhD Unavailable Shahid Riddle MD Unavailable [phone] Elan Riddle MD Unavailable [phone] Peter Keita MD Unavailable [phone] Peter Keita MD Primary Care Provider Allergies No known active allergies Medications allopurinol (ZYLOPRIM) 300 mg tablet take 1 tablet (300MG) by oral route every day 0 03/10/20 12 Active sertraline (ZOLOFT) 50 mg tablet take 1 tablet by oral route every day 0 03/10/20 12 Active ALPRAZolam (XANAX) 0.25 mg tablet Take 1 tablet (0.25 mg total) by mouth 2 (two) times a day 01/22/[address]-rco-xmxhk-lyc [id number] 200-175-250 mcg tablet Take by mouth Active [...] 03/25/2024 Assessment & Plan (03/26/2024 10:47 AM CHILDREN'S ATTENDANT): Several days of constipation - Senna-docusate bid, miralax and bisacodyl suppository prn in addition - Advised to avoid straining - Resolved 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 Presented to OSH ([facility]): Troponin I elevated 0.164 on admission, peaked [...] a surgical eval. He was transferred to [facility] to be evaluated. CTA Chest 03/18/2024: negative for PE, aortic dissection, or aortic aneurysm. The extensive homogeneous anterior mediastinal mass is decreased in extent from prior exam CT chest and cath images uploaded on [facility] Previous TTE 02/05/2024 LVEF 40-45% with anterior wall akinesis, apical wall akinesis, hypokinesis of anterioseptal segment. Possible apical aneurysm, difficult to assess given limited views. - Follow Cardiothoracic surgery, Cards-Onc recs. Recommending CAD heart team discussion on CABG vs PCI. Final plan: 1/10/25, PCI to LAD with drug-coated balloon to [...] least 30 days. Discussed with Cards fellow long term - Ticagrelor son check: $52.20/mo, discussed with Pt - Repeat TTE 03/24: Grossly upper normal LV size with mildly reduced segmental LV systolic function w/ estimated EF=45% and akinetic anteroseptal. distal septal and apical barraza. Grade I diastolic LV dysfunction - Telemetry while inpatient - Cardiac rehab as outpatient. 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 Mediastinal mass 02/09/2024 Persons encountering health services in other specified circumstances 02/02/2024 Mixed hyperlipidemia 04/05/2021 LVE (left ventricular enlargement) 04/05/2021 Bradycardia 11/30/2017 S/P coronary artery stent placement 10/08/2016 Adiposity 04/02/2016 Overview (06/19/2016): Obesity, Class I, BMI 30.0-34.9 (see actual BMI) CAD (coronary artery disease) 04/02/2016 Overview (06/19/2016): Coronary artery disease involving stebbins coronary artery of stebbins heart without angina pectoris Assessment & Plan (03/24/2024 10:20 AM CHILDREN'S ATTENDANT): CAD s/p stent placement (2005 in [place], [place]) Management as above Hypertension 04/02/2016 Overview (06/19/2016): HTN (hypertension), benign Assessment & Plan (03/28/2024 11:34 AM CHILDREN'S ATTENDANT): BP stable. Discontinue home HCTZ-irbesartan, hydralazine, doxazosin to allow room for heart failure GDMT initiation. See above Abnormal thallium stress test 04/02/2016 Overview (06/19/2016): Abnormal nuclear stress test BLUE (obstructive sleep apnea) 04/02/2016 Overview (06/19/2016): BLUE on CPAP Assessment & Plan (03/24/2024 10:16 AM CHILDREN'S ATTENDANT): CPAP HS History of myocardial infarction 04/02/2016 Overview (06/19/2016): H/O acute myocardial infarction Resolved Problems Problem Noted Date Diagnosed Date Resolved Date Heart failure with reduced ejection fraction 5 04/08/2024 Assessment & Plan (03/28/2024 11:38 AM CHILDREN'S ATTENDANT): 01/2024: LV systolic function is reduced, EF [...] Overview (06/19/2016): S/P coronary artery stent placement Encounters Date Type Department Care Team Description 08/24/[address] [facility] Cardiology [address] 8th [place] [address] [place] [address] Bridgette Elaine 08/22/[address] [facility] Physicians [facility] Oncology [address] [place] [address] Anayeli Coker RMA 08/18/2024 10:00 AM CDT Office Visit [facility] Physicians [facility] Bone Marrow Transplant [address] [place] [phone] Brittaney Mitchell, MOTION PICTURE EQUIPMENT SUPERVISOR 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) (Primary Dx) 08/18/2024 9:30 AM CDT Clinical Support [facility] [place] at [address] [address] 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) 08/17/2024 Orders Only [facility] Oncology [address] [place] [phone] Esther Finch, RN Thyroid nodule (Primary Dx); 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) 08/16/2024 9:51 AM CDT - 08/16/2024 11:59 PM CDT Hospital Encounter [facility] Building [address] [place] [address] 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) Discharge Disposition: Discharge to home or self care 07/18/2024 3:30 PM CDT Clinical Support [facility] [place] at [address] [address] 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) 07/18/2024 9:30 AM CDT Infusion [facility] [place] at [address] [address] 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) (Primary Dx) 07/14/2024 11:30 AM CDT Infusion [facility] [place] at [address] [address] 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) (Primary Dx) 07/14/2024 10:45 AM CDT Office Visit [facility] Bone Marrow Transplant [address] [place] [phone] Shahid Riddle MD 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) (Primary Dx) 07/14/2024 10:15 AM CDT Clinical Support [address] [address] 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) 07/11/2024 10:00 AM CDT Clinical Support [address] [address] 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) 07/11/2024 Orders Only [address] [address] Siomara Wiseman RPh 07/07/2024 10:00 AM CDT Clinical Support [address] [address] 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) 07/04/2024 10:00 AM CDT Clinical Support [address] [address] 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) 07/04/2024 Orders Only [facility] [address] [place] [phone] Mishel Smith RN 06/30/2024 11:00 AM CDT Office Visit [facility] Department of Otolaryngology Head-Neck Division [facility] Floor [address] [place] [address] Bernardo Del Castillo MD 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) (Primary Dx) 06/30/2024 8:30 AM CDT Clinical Support [address] [address] 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) 06/27/2024 2:15 PM CDT Clinical Support [facility] at [address] [place] [address] 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) 06/27/2024 11:30 AM CDT Infusion [facility] at [address] [place] [address] 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) (Primary Dx) 06/27/2024 11:00 AM CDT Clinical Support [facility] at [address] [address] 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) 06/23/2024 12:00 PM CDT Infusion [address] [place] [address] 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) (Primary Dx) 06/23/2024 11:20 AM CDT Office Visit [facility] Physicians [facility] [address] [place] [address] [address] [place] [address] Brigette Johnson, RADHA 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) (Primary Dx) 06/23/2024 11:00 AM CDT Clinical Support [address] [address] 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) 06/20/2024 8:00 AM CDT Clinical Support [address] [address] 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) 06/20/2024 Orders Only [facility] Physicians [facility] [address] [place] [address] [address] [place] [address] Shahid Riddle MD 06/20/2024 Orders Only [facility] [address] [address] Siomara Wiseman [facility] 06/16/2024 8:00 AM CDT Clinical Support [address] [address] 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) 06/16/2024 Orders Only [address] [place] [address] Siomara Wiseman [facility] 06/13/2024 8:00 AM CDT Clinical Support [address] [address] 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) 06/09/2024 8:00 AM CDT Clinical Support [address] [address] 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) 06/09/2024 Orders Only [facility] Oncology [address] [place] [address] [address] [place] [address] Esther Finch, RN 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) (Primary Dx) 06/06/2024 2:15 PM CDT Clinical Support [address] [place] [address] 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) 06/06/2024 8:00 AM CDT Infusion [address] [place] [address] 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) (Primary Dx) 06/06/2024 7:30 AM CDT Clinical Support [address] [address] 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) 06/02/2024 8:30 AM CDT Infusion [facility] [place] at [address] [place] [address] 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) (Primary Dx) 06/02/2024 8:00 AM CDT Office Visit [facility] Bone Marrow Transplant [address] [place] [address] [address] [place] [address] Shahid Riddle MD Iron deficiency anemia, unspecified iron deficiency anemia type (Primary Dx); 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) 06/02/2024 7:30 AM CDT Clinical Support [facility] at [address] [address] 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); Iron deficiency anemia, unspecified iron deficiency anemia type 06/01/2024 Orders Only [facility] [address] [place] [address] [address] [place] [phone] Corine Zhou, [facility] 06/01/2024 Orders Only [facility] Oncology [address] [place] [address] [address] [place] [phone] Vickie Mascorro, [facility] 06/01/2024 Results Follow-Up [facility] at [address] [place] [address] Elan Riddle MD Transthoracic Echo (TTE) Complete W Doppler/CF 05/30/2024 8:30 AM CDT Clinical Support [facility] at [address] [address] 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) 05/26/2024 8:30 AM CDT Clinical Support [facility] at [address] [address] 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) from Last 3 Months Immunizations Immunization Administration Dates Next Due Influenza, Split 02/17/2013 Influenza, Unspecified 12/15/2023 ZOSTER Recombinant 10/18/2022,08/08/2022 Surgical History Surgery Date Site/Laterality Comments CORONARY STENT PLACEMENT Coronary Stent Placement LUNG SURGERY 03/16/2003 - 03/15/2004 Right 2 lobes was taken out PORT PLACEMENT CHEST >5 YEARS 02/08/2024 N/A BIOPSY 02/10/2024 of the tissue CARDIAC STENT PLACEMENT 03/25/2024 two stents placed Medical History Medical History Date Comments Chronic coronary artery disease Coronary Artery Disease Hypertension Hypertension Myocardial infarction (HCC) Myoc ardial infarction Adiposity Obesity Anxiety Hypercholesteremia LVH (left ventricular hypertrophy) Sleep apnea Cancer (HCC) Family History Medical History Relation Name Comments Heart attack Father Myocardial Infa rction; Cause of : Myocardial Infarction Heart attack Maternal Grandfather Heart attack Paternal Grandmother Relation Name Status Comments Father (Age 60) Maternal Grandfather Paternal Grandmother Social History Tobacco Use Types Packs/Day Years [...] on file Legal Sex Male 2:34 AM CHILDREN'S ATTENDANT Gender Identity Male 12/19/2023 7:33 PM CDT Sexual Orientation Straight 12/19/2023 7: 33 PM CDT Obstetrics History Last Filed Vital Signs Vital Sign Reading [...] 190.5 cm (6' 3) 04/08/2024 7:57 AM CHILDREN'S ATTENDANT Body Mass Index 31.08 04/08/2024 7:57 AM CHILDREN'S ATTENDANT Plan of Treatment Health Maintenance Due Date Last Done Comments Colon Cancer Screening-Colonoscopy 1966 Depression Screening 1966 Prostate Cancer Screening-PSA 1966 DTaP/Tdap/Td Vaccine (1 - Tdap) 1977 Regular Well Visit/Exam 18-64 1984 Pneumococcal vaccine <65 (1 of 2 - PCV) 1985 Covid-19 Vaccine (2023-2 5 season) 2023 12/27/2022, 09/27/2021, 02/05/2021, Additional history exists Zoster Vaccine Completed 10/18/2022, 08/08/2022 Influenza Vaccine Completed 12/15/2023, 02/17/2013 Hepatitis B Screening Completed 02/18/2024 Hepatitis C Screening Completed 02/18/2024 Medical Devices Implanted Type Area Dip Unit Operator Device Identifier Shelf Expiration Date Model / Serial / Lot [employer] Lesa Angio-Seal Vip 6fr Closere Device [id number] - [id number] - [id number] Implanted:Qt y: 1 on 03/25/2024 by Zi Orozco MD PhD at [facility] Collagen N/A: Superficial Femoral Artery [employer] Lesa 07/27/2024 [id number] / [id number] / [id number] Medtronic Card Vasc Surgery 2.75 X 34mm Bennett Bigelow Rx Coronary Stent [id number] x - [id number] 001 - [id number] Implanted:Qt y: 1 on 03/25/2024 by Zi Orozco MD PhD at [facility] Stent N/A: Coronary Artery Medtronic Card Vasc Surgery 09/27/2026 [id number] / [id number] / [id number] Description:OM Medtronic Card Vasc Surgery 3.5 X 18mm Bennett Bigelow Rx Coronary Stent [id number] x - [id number] 001 - [id number] Implanted:Qt y: 1 on 03/25/2024 by Zi Orozco MD PhD at [facility] Stent N/A: Coronary Artery Medtronic Card Vasc Surgery 11/19/2026 [id number] / [id number] / [id number] Description: Angio Dynamics Xcela Power Port 8fr [id number] - [id number] Implanted:Qt y: 1 on 02/08/2024 at [facility] Angio Dynamics 08/29/2028 [id number] / / [id number] Procedures Procedure Name Priority Date/Time Associated Diagnosis [...] HEPATITIS C ANTIBODY Routine 02/18/2024 12:48 PM CHILDREN'S ATTENDANT Mediastinal mass from Last 3 Months or Most Recently Relevant to Health Maintenance Results * Blood smear review (08/18/2024 9:46 AM CDT) RBC morphology Consistent with RBC Indicies Comment:Testing performed by : [facility], [address] [place] [address]., [address] Platelet estimate Adequate ETHAN SONG Comment:Testing performed by : [facility], [address] [place] [address]., [address] Blood 08/18/2024 9:46 AM CDT 08/18/2024 9:51 AM CDT us Shahid Riddle MD LAB BLOOD ORDERABLES Final R esult ETHAN [address] [facility] Department [place] [address] * eGFR (08/18/2024 9:46 AM CDT) eGFR [...] was last reviewed 2021. Testing performed by: [address] [address] Blood 08/18/2024 9:46 AM CDT 08/18/2024 9:51 AM CDT us Shahid Riddle MD LAB BLOOD ORDERABLES Final R esult [facility] [address] [facility] Department of Laboratories [place], [place] [id number] * (ABNORMAL) Differential, auto (08/18/2024 9:46 AM CDT) Neutrophil abs 2.82 1.50 - 6.50 K/cumm Comment:Testing performed by : [address] [address] Imm gran abs 0.03 0.00 - 0.10 K/cumm ETHAN Comment:Testing performed by : [address] [address] Lymphocyte abs 0.32(L) 0.80 - 3.30 K/cumm ETHAN Comment:Testing performed by : [address] [address] Monocyte abs 0.37 0.20 - 0.80 K/cumm ETHAN Comment:Testing performed by : [address] [address] Eosinophil abs 0.04 0.00 - 0.50 K/cumm ETHAN Comment:Testing performed by : [address] [address] Basophil abs 0.05 0.00 - 0.10 K/cumm ETHAN Comment:Testing performed by : [address] [address] Neutrophil pct 77.7 % [facility] Comment: Interpretive Data Percent cell count reference ranges are not reported, since discordance with absolute values may lead to misinterpretation of CBC data. Current Interpretive Data was last revised on 2017. Testing performed by: [address] [address] Imm gran pct 0.8 % [facility] Comment: Interpretive Data Percent cell count reference ranges are not reported, since discordance with absolute values may lead to misinterpretation of CBC data. Current Interpretive Data was last revised on 2017. Testing performed by: [address] [address] Lymphocyte pct 8.8 % [facility] Comment: Interpretive Data Percent cell count reference ranges are not reported, since discordance with absolute values may lead to misinterpretation of CBC data. Current Interpretive Data was last revised on 2017. Testing performed by: [address] [address] Monocyte pct 10.2 % [facility] Comment: Interpretive Data Percent cell count reference ranges are not reported, since discordance with absolute values may lead to misinterpretation of CBC data. Current Interpretive Data was last revised on 2017. Testing performed by: [address] [address] Eosinophil pct 1.1 % [facility] Comment: Interpretive Data Percent cell count reference ranges are not reported, since discordance with absolute values may lead to misinterpretation of CBC data. Current Interpretive Data was last revised on 2017. Testing performed by: [address] [address] Basophil pct 1.4 % [facility] Comment: Interpretive Data Percent cell count reference ranges are not reported, since discordance with absolute values may lead to misinterpretation of CBC data. Current Interpretive Data was last revised on 2017. Testing performed by: [address] [address] Blood 08/18/2024 9:46 AM CDT 08/18/2024 9:51 AM CDT us Shahid Riddle MD LAB BLOOD ORDERABLES Final R esult ETHAN [address] [facility] Department [place] [address] * (ABNORMAL) CBC with auto differential (08/18/2024 9:46 AM CDT) [facility] WBC 3.63(L) 3.80 - 9.90 K/cumm Comment:Testing performed by : [address] [address] Hgb 10.9(L) 13.0 - 17.5 g/dL ETHAN Comment:Testing performed by : [address] [address] Hct 34.5(L) 38.9 - 50.3 % ETHAN Comment:Testing performed by : [address] [address] Plt 143(L) 150 - 400 K/cumm ETHAN Comment:Testing performed by : [address] [address] MPV Not Measured 9.1 - 12.3 fL ETHAN Comment:Testing performed by : [address] [address] RBC 4.21(L) 4.30 - 5.80 M/cumm ETHAN Comment:Testing performed by : [address] [address] MCV 81.9 81.3 - 96.4 fL ETHAN Comment:Testing performed by : [address] [address] MCH 25.9(L) 27.1 - 33.3 pg ETHAN Comment:Testing performed by : [address] [address] MCHC 31.6(L) 32.3 - 35.7 g/dL ETHAN Comment:Testing performed by : [address] [address] RDW CV 18.4(H) 11.1 - 14.9 % ETHAN Comment:Testing performed by : [address] [address] RDW SD 55.0(H) 35.7 - 48.1 fL ETHAN SONG Comment:Testing performed by : [address] [address] NRBC abs 0.00 0.00 - 0.01 K/cumm ETHAN Comment:Testing performed by : [address] [address] ANC Prelim 2.82 1.50 - 6.50 K/cumm ETHAN Comment: Interpretive Data The rapid ANC is a preliminary automated count and may vary from the final ANC (Neut Abs) reported in the WBC differential that follows. Current interpretive data was last revised 2024. Testing performed by: [address] [address] Blood 08/18/2024 9:46 AM CDT 08/18/2024 9:51 AM CDT us Shahid Riddle MD LAB BLOOD ORDERABLES Final R esult Performing Organization Address [facility] Co de Phone Number [address] [place] [address] * Lactate dehydrogenase (LD) (08/18/2024 9:46 AM CDT) Lactate dehydrogenase (LDH) 173 100 - 250 Units/L Comment:Testing performed by : [address] [address] Blood 08/18/2024 9:46 AM CDT 08/18/2024 9:51 AM CDT us Shahid Riddle MD LAB BLOOD ORDERABLES Final R esult Performing Organization Address City/[facility]/ZIP Co de Phone Number [address] [place] [address] * (ABNORMAL) Comprehensive metabolic panel (08/18/2024 9:46 AM CDT) Sodium 139 135 - 145 mmol/L Comment:Testing performed by : [address] [address] Potassium, pl 4.0 3.3 - 4.9 mmol/L ETHAN Comment:Testing performed by : [address] [address] Chloride 106 97 - 110 mmol/L ETHAN Comment:Testing performed by : [address], [place]., [address] CO2 22 22 - 32 mmol/L ETHAN Comment:Testing performed by : [address] [address] Anion gap 11 2 - 15 mmol/L ETHAN Comment:Testing performed by : [address] [address] BUN 16 6 - 25 mg/dL ETHAN Comment:Testing performed by : [address] [address] Creatinine 0.90 0.80 - 1.30 mg/dL ETHAN Comment:Testing performed by : [address] [address] Glucose 154 70 - 199 mg/dL ETHAN [...] was last revised 2022. Testing performed by: [address] [address] Calcium 9.2 8.5 - 10.3 mg/dL ETHAN Comment:Testing performed by : [address] [address] Bilirubin, total 0.5 0.1 - 1.2 mg/dL ETHAN Comment:Testing performed by : [address] [address] Protein, pl 5.9(L) 6.5 - 8.5 g/dL ETHAN Comment:Testing performed by : [address] [address] Albumin 4.2 3.5 - 5.0 g/dL ETHAN Comment:Testing performed by : [address] [address] Alk phos 79 40 - 130 Units/L ETHAN Comment:Testing performed by : [address], [address] ALT 33 7 - 55 Units/L ETHAN Comment:Testing performed by : [address], [address] AST 33 10 - 50 Units/L ETHAN Comment:Testing performed by : [address] [address] Blood 08/18/2024 9:46 AM CDT 08/18/2024 9:51 AM CDT us Shahid Riddle MD LAB BLOOD ORDERABLES Final R esult Performing Organization Address City/State/[facility] Co de Phone Number [facility] [address] [facility] Department [place] [address] * PET/CT FDG Skull to Thigh (08/16/2024 [...] Frank Hanson M.D. LB: SIGRID Report ID: [id number] Reading Location: [id number] Procedure Note Frank Hanson MD - 08/16/2024 [...] Frank Hanson M.D. LB: SIGRID Report ID: [id number] Reading Location: [id number] Shahid Riddle MD IMG PET PROCEDURES Final Res ult * POCT glucose (08/16/2024 10:01 AM CDT) Glucose, POC 98 70 - 199 mg/dL Comment:Testing performed by : [facility], [address] [place] [address]., [address] Blood 08/16/2024 10:0 1 AM CDT 08/16/2024 10:01 AM CDT us Shahid Riddle MD LAB POCT ORDERABLES - DEVICE Final Result [facility] [address] [facility] Department [place] [address] * eGFR (07/14/2024 10:29 AM CDT) eGFR >90 >=60 mL/min/1. 73 [...] was last reviewed 2021. Testing performed by: [address] [address] Blood 07/14/2024 10:2 9 AM CDT 07/14/2024 10:34 AM CDT us Brigette Johnson MOTION PICTURE EQUIPMENT SUPERVISOR LAB BLOOD ORDERABLES Catherine acevedo Result [facility] [address] [facility] Department [place] [address] * (ABNORMAL) Differential, auto (07/14/2024 10:29 AM CDT) Neutrophil abs 7.65(H) 1.50 - 6.50 K/cumm Comment:Testing performed by : [address] [address] Imm gran abs 0.24(H) 0.00 - 0.10 K/cumm ETHAN Comment:Testing performed by : [address] [address] Lymphocyte abs 0.35(L) 0.80 - 3.30 K/cumm ETHAN Comment:Testing performed by : [address] [address] Monocyte abs 0.25 0.20 - 0.80 K/cumm ETHAN Comment:Testing performed by : [address] [address] Eosinophil abs 0.01 0.00 - 0.50 K/cumm ETHAN Comment:Testing performed by : [address] [address] Basophil abs 0.06 0.00 - 0.10 K/cumm ETHAN Comment:Testing performed by : [address] [address] Neutrophil pct 89.4 % ETHAN Comment: Interpretive Data Percent cell count reference ranges are not reported, since discordance with absolute values may lead to misinterpretation of CBC data. Current Interpretive Data was last revised on 2017. Testing performed by: [address] [address] Imm gran pct 2.8 % ETHAN Comment: Interpretive Data Percent cell count reference ranges are not reported, since discordance with absolute values may lead to misinterpretation of CBC data. Current Interpretive Data was last revised on 2017. Testing performed by: [address] [address] Lymphocyte pct 4.1 % [facility] Comment: Interpretive Data Percent cell count reference ranges are not reported, since discordance with absolute values may lead to misinterpretation of CBC data. Current Interpretive Data was last revised on 2017. Testing performed by: [address] [address] Monocyte pct 2.9 % [facility] Comment: Interpretive Data Percent cell count reference ranges are not reported, since discordance with absolute values may lead to misinterpretation of CBC data. Current Interpretive Data was last revised on 2017. Testing performed by: [address] [address] Eosinophil pct 0.1 % [facility] Comment: Interpretive Data Percent cell count reference ranges are not reported, since discordance with absolute values may lead to misinterpretation of CBC data. Current Interpretive Data was last revised on 2017. Testing performed by: [address] [address] Basophil pct 0.7 % [facility] Comment: Interpretive Data Percent cell count reference ranges are not reported, since discordance with absolute values may lead to misinterpretation of CBC data. Current Interpretive Data was last revised on 2017. Testing performed by: [address] [address] Blood 07/14/2024 10:2 9 AM CDT 07/14/2024 10:34 AM CDT us Brigette Johnson [employer] LAB BLOOD ORDERABLES Catherine acevedo Result ETHAN [address] [facility] Department [place] [address] * (ABNORMAL) CBC with auto differential (07/14/2024 10:29 AM CDT) WBC 8.56 3.80 - 9.90 K/cumm Comment:Testing performed by : [address] [address] Hgb 10.4(L) 13.0 - 17.5 g/dL ETHAN Comment:Testing performed by : [address] [address] Hct 32.3(L) 38.9 - 50.3 % ETHAN Comment:Testing performed by : [address] [address] Plt 178 150 - 400 K/cumm ETHAN Comment:Testing performed by : [address] [address] MPV 11.3 9.1 - 12.3 fL ETHAN Comment:Testing performed by : [address] [address] RBC 3.96(L) 4.30 - 5.80 M/cumm ETHAN Comment:Testing performed by : [address] [address] MCV 81.6 81.3 - 96.4 fL ETHAN Comment:Testing performed by : [address] [address] MCH 26.3(L) 27.1 - 33.3 pg ETHAN Comment:Testing performed by : [address] [address] MCHC 32.2(L) 32.3 - 35.7 g/dL ETHAN Comment:Testing performed by : [address], [address] RDW CV 20.3(H) 11.1 - 14.9 % ETHAN Comment:Testing performed by : [address] [address] RDW SD 57.7(H) 35.7 - 48.1 fL ETHAN Comment:Testing performed by : [address] [address] NRBC abs 0.03(H) 0.00 - 0.01 K/cumm ETHAN Comment:Testing performed by : [address] [address] ANC Prelim 7.65(H) 1.50 - 6.50 K/cumm ETHAN Comment: Interpretive Data The rapid ANC is a preliminary automated count and may vary from the final ANC (Neut Abs) reported in the WBC differential that follows. Current interpretive data was last revised 2024. Testing performed by: [address] [address] Blood 07/14/2024 10:2 9 AM CDT 07/14/2024 10:34 AM CDT Brigette Johnson [employer] LAB BLOOD ORDERABLES Catherine l Result Performing Organization Address City/[facility] Co de Phone Number [address] [place] [address] * Lactate dehydrogenase (LD) (07/14/2024 10:29 AM CDT) Pathologist [facility] Lactate dehydrogenase (LDH) 195 100 - 250 Units/L Comment:Testing performed by : [address] [address] Blood 07/14/2024 10:2 9 AM CDT 07/14/2024 10:34 AM CDT Brigette Johnson [employer] LAB BLOOD ORDERABLES Catherine l Result Performing Organization Address [facility] Co de Phone Number [address] [place] [address] * (ABNORMAL) Comprehensive metabolic panel (07/14/2024 10:29 AM CDT) Sodium 138 135 - 145 mmol/L Comment:Testing performed by : [address] [address] Potassium, pl 4.4 3.3 - 4.9 mmol/L ETHAN SONG Comment:Testing performed by : [address] [address] Chloride 106 97 - 110 mmol/L ETHAN Comment:Testing performed by : [address] [address] CO2 23 22 - 32 mmol/L ETHAN Comment:Testing performed by : [address] [address] Anion gap 9 2 - 15 mmol/L ETHAN Comment:Testing performed by : [address], [place]., [address] BUN 13 6 - 25 mg/dL ETHAN Comment:Testing performed by : [address], [place]., [address] Creatinine 0.90 0.80 - 1.30 mg/dL ETHAN Comment:Testing performed by : [address] [address] Glucose 135 70 - 199 mg/dL ETHAN Comment: Interpretive [...] was last revised 2022. Testing performed by: [address] [address] Calcium 8.8 8.5 - 10.3 mg/dL ETHAN Comment:Testing performed by : [address] [address] Bilirubin, total 0.3 0.1 - 1.2 mg/dL ETHAN Comment:Testing performed by : [address] [address] Protein, pl 5.8(L) 6.5 - 8.5 g/dL ETHAN Comment:Testing performed by : [address] [address] Albumin 4.1 3.5 - 5.0 g/dL ETHAN Comment:Testing performed by : [address] [address] Alk phos 81 40 - 130 Units/L ETHAN Comment:Testing performed by : [address] [address] ALT 27 7 - 55 Units/L ETHAN Comment:Testing performed by : [address], [address] AST 23 10 - 50 Units/L ETHAN Comment:Testing performed by : [address] [address] Blood 07/14/2024 10:2 9 AM CDT 07/14/2024 10:34 AM CDT Brigette Johnson [employer] LAB BLOOD ORDERABLES Catherine l Result Performing Organization Address City/[facility] Co de Phone Number [address] [place] [address] * Blood smear review (07/11/2024 10:16 AM CDT) Pathologist [facility] RBC morphology Consistent with RBC Indicies Comment:Testing performed by : [address] [address] Platelet estimate Adequate ETHAN Comment:Testing performed by : [address] [address] Blood 07/11/2024 10:1 6 AM CDT 07/11/2024 10:18 AM CDT us Keli Long [employer] LAB BLOOD ORDERABLES F inal Result Performing Organization Address City/[facility]/ZIP Co de Phone Number [address] [place] [address] * eGFR (07/11/2024 10:16 AM CDT) Pathologist [facility] eGFR >90 >=60 mL/min/1. 73 m2 Comment: [...] was last reviewed 2021. Testing performed by: [address] [address] Blood 07/11/2024 10:1 6 AM CDT 07/11/2024 10:18 AM CDT Keli Long NP LAB BLOOD ORDERABLES F inal Result [place] [address] [facility] Department [place] [address] * (ABNORMAL) Differential, auto (07/11/2024 10:16 AM CDT) Neutrophil abs 6.79(H) 1.50 - 6.50 K/cumm Comment:Testing performed by : [address] [address] Imm gran abs 1.16(H) 0.00 - 0.10 K/cumm ETHAN Comment:Testing performed by : [address] [address] Lymphocyte abs 0.89 0.80 - 3.30 K/cumm ETHAN Comment:Testing performed by : [address] [address] Monocyte abs 0.96(H) 0.20 - 0.80 K/cumm ETHAN Comment:Testing performed by : [address] [address] Eosinophil abs 0.04 0.00 - 0.50 K/cumm [facility] Comment:Testing performed by : [address] [address] Basophil abs 0.09 0.00 - 0.10 K/cumm [facility] Comment:Testing performed by : [address] [address] Neutrophil pct 68.3 % [facility] Comment: Interpretive Data Percent cell count reference ranges are not reported, since discordance with absolute values may lead to misinterpretation of CBC data. Current Interpretive Data was last revised on 2017. Testing performed by: [address] [address] Imm gran pct 11.7 % [facility] Comment: Interpretive Data Percent cell count reference ranges are not reported, since discordance with absolute values may lead to misinterpretation of CBC data. Current Interpretive Data was last revised on 2017. Testing performed by: [address] [address] Lymphocyte pct 9.0 % [facility] Comment: Interpretive Data Percent cell count reference ranges are not reported, since discordance with absolute values may lead to misinterpretation of CBC data. Current Interpretive Data was last revised on 2017. Testing performed by: [address] [address] Monocyte pct 9.7 % [facility] Comment: Interpretive Data Percent cell count reference ranges are not reported, since discordance with absolute values may lead to misinterpretation of CBC data. Current Interpretive Data was last revised on 2017. Testing performed by: [address] [address] Eosinophil pct 0.4 % [facility] Comment: Interpretive Data Percent cell count reference ranges are not reported, since discordance with absolute values may lead to misinterpretation of CBC data. Current Interpretive Data was last revised on 2017. Testing performed by: [address] [address] Basophil pct 0.9 % [facility] Comment: Interpretive Data Percent cell count reference ranges are not reported, since discordance with absolute values may lead to misinterpretation of CBC data. Current Interpretive Data was last revised on 2017. Testing performed by: [address] [address] Blood 07/11/2024 10:1 6 AM CDT 07/11/2024 10:18 AM CDT Keli Long NP LAB BLOOD ORDERABLES F inal Result [facility] [address] [facility] Department [place] [address] * (ABNORMAL) CBC with auto differential (07/11/2024 10:16 AM CDT) WBC 9.93(H) 3.80 - 9.90 K/cumm Comment:Testing performed by : [address] [address] Hgb 10.5(L) 13.0 - 17.5 g/dL ETHAN Comment:Testing performed by : [address] [address] Hct 32.8(L) 38.9 - 50.3 % ETHAN Comment:Testing performed by : [address] [address] Plt 112(L) 150 - 400 K/cumm ETHAN Comment:Testing performed by : [address] [address] MPV Not Measured 9.1 - 12.3 fL ETHAN Comment:Testing performed by : [address] [address] RBC 4.06(L) 4.30 - 5.80 M/cumm ETHAN Comment:Testing performed by : [address] [address] MCV 80.8(L) 81.3 - 96.4 fL ETHAN Comment:Testing performed by : [address] [address] MCH 25.9(L) 27.1 - 33.3 pg ETHAN Comment:Testing performed by : [address] [address] MCHC 32.0(L) 32.3 - 35.7 g/dL ETHAN Comment:Testing performed by : [address] [address] RDW CV 20.2(H) 11.1 - 14.9 % ETHAN Comment:Testing performed by : [address] [address] RDW SD 56.2(H) 35.7 - 48.1 fL ETHAN Comment:Testing performed by : [address] [address] NRBC abs 0.05(H) 0.00 - 0.01 K/cumm ETHAN Comment:Testing performed by : [address] [address] ANC Prelim 6.79(H) 1.50 - 6.50 K/cumm ETHAN Comment: Interpretive Data The rapid ANC is a preliminary automated count and may vary from the final ANC (Neut Abs) reported in the WBC differential that follows. Current interpretive data was last revised 2024. Testing performed by: [address] [address] Blood 07/11/2024 10:1 6 AM CDT 07/11/2024 10:18 AM CDT Narrative ETHAN - 07/11/2024 10:29 AM CDT Mon/Thurs us Keli Long [employer] LAB BLOOD ORDERABLES F inal Result ETHAN [address] [facility] Department [place] [address] * (ABNORMAL) Comprehensive metabolic panel (07/11/2024 10:16 AM CDT) Sodium 139 135 - 145 mmol/L Comment:Testing performed by : [address] [address] Potassium, pl 4.3 3.3 - 4.9 mmol/L ETHAN Comment:Testing performed by : [address], [place]., [address] Chloride 106 97 - 110 mmol/L ETHAN Comment:Testing performed by : [address], [place]., [address] CO2 23 22 - 32 mmol/L ETHAN Comment:Testing performed by : [address], [place]., [address] Anion gap 10 2 - 15 mmol/L ETHAN Comment:Testing performed by : [address], [place]., [address] BUN 10 6 - 25 mg/dL [facility] Comment:Testing performed by : [address], [place]., [address] Creatinine 0.80 0.80 - 1.30 mg/dL ETHAN Comment:Testing performed by : [address], [place]., [address] Glucose 125 70 - 199 mg/dL ETHAN [...] was last revised 2022. Testing performed by: [address] [address] Calcium 8.9 8.5 - 10.3 mg/dL ETHAN Comment:Testing performed by : [address] [address] Bilirubin, total 0.2 0.1 - 1.2 mg/dL ETHAN Comment:Testing performed by : [address] [address] Protein, pl 5.9(L) 6.5 - 8.5 g/dL ETHAN Comment:Testing performed by : [address], [place]., [address] Albumin 4.0 3.5 - 5.0 g/dL ETHAN Comment:Testing performed by : [address] [address] Alk phos 96 40 - 130 Units/L ETHAN Comment:Testing performed by : [address] [address] ALT 25 7 - 55 Units/L ETHAN Comment:Testing performed by : [address] [address] AST 21 10 - 50 Units/L ETHAN Comment:Testing performed by : [address], [address] Blood 07/11/2024 10:1 6 AM CDT 07/11/2024 10:18 AM CDT Narrative ETHAN - 07/11/2024 10:41 AM CDT Mon/Thurs Keli Long NP LAB BLOOD ORDERABLES F inal Result Performing Organization Address City/[facility] Co de Phone Number [address] [place] [address] * (ABNORMAL) Blood smear review (07/07/2024 10:05 AM CDT) RBC morphology Consistent with RBC Indicies Comment:Testing performed by : [address] [address] Platelet estimate Decreased(A) ETHAN Comment:Testing performed by : [address], [address] Blood 07/07/2024 10:0 5 AM CDT 07/07/2024 10:10 AM CDT Keli Long NP LAB BLOOD ORDERABLES F inal Result Performing Organization Address City/[facility] Co de Phone Number [address] [place] [address] * eGFR (07/07/2024 10:05 AM CDT) eGFR [...] was last reviewed 2021. Testing performed by: [address] [address] Blood 07/07/2024 10:0 5 AM CDT 07/07/2024 10:10 AM CDT Keli Long NP LAB BLOOD ORDERABLES F inal Result [facility] [address] [facility] Department [place] [address] * (ABNORMAL) Differential, auto (07/07/2024 10:05 AM CDT) Pathologist [facility] Neutrophil abs 5.08 1.50 - 6.50 K/cumm Comment:Testing performed by : [address] [address] Imm gran abs 1.57(H) 0.00 - 0.10 K/cumm ETHAN Comment:Testing performed by : [address] [address] Lymphocyte abs 0.70(L) 0.80 - 3.30 K/cumm ETHAN Comment:Testing performed by : [address] [address] Monocyte abs 0.81(H) 0.20 - 0.80 K/cumm [facility] Comment:Testing performed by : [address], [place]., [address] Eosinophil abs 0.03 0.00 - 0.50 K/cumm [facility] Comment:Testing performed by : [address], [place]., [address] Basophil abs 0.06 0.00 - 0.10 K/cumm [facility] Comment:Testing performed by : [address] [address] Neutrophil pct 61.6 % [facility] Comment: Interpretive Data Percent cell count reference ranges are not reported, since discordance with absolute values may lead to misinterpretation of CBC data. Current Interpretive Data was last revised on 2017. Testing performed by: [address] [address] Imm gran pct 19.0 % [facility] Comment: Interpretive Data Percent cell count reference ranges are not reported, since discordance with absolute values may lead to misinterpretation of CBC data. Current Interpretive Data was last revised on 2017. Testing performed by: [address] [address] Lymphocyte pct 8.5 % [facility] Comment: Interpretive Data Percent cell count reference ranges are not reported, since discordance with absolute values may lead to misinterpretation of CBC data. Current Interpretive Data was last revised on 2017. Testing performed by: [address] [address] Monocyte pct 9.8 % [facility] Comment: Interpretive Data Percent cell count reference ranges are not reported, since discordance with absolute values may lead to misinterpretation of CBC data. Current Interpretive Data was last revised on 2017. Testing performed by: [address] [address] Eosinophil pct 0.4 % [facility] Comment: Interpretive Data Percent cell count reference ranges are not reported, since discordance with absolute values may lead to misinterpretation of CBC data. Current Interpretive Data was last revised on 2017. Testing performed by: [address] [address] Basophil pct 0.7 % ETHAN SONG Comment: Interpretive Data Percent cell count reference ranges are not reported, since discordance with absolute values may lead to misinterpretation of CBC data. Current Interpretive Data was last revised on 2017. Testing performed by: [address] [address] Blood 07/07/2024 10:0 5 AM CDT 07/07/2024 10:10 AM CDT us Keli Long NP LAB BLOOD ORDERABLES F inal Result ETHAN [address] [facility] Department [place] [address] * (ABNORMAL) CBC with auto differential (07/07/2024 10:05 AM CDT) WBC 8.25 3.80 - 9.90 K/cumm Comment:Testing performed by : [address] [address] Hgb 10.1(L) 13.0 - 17.5 g/dL ETHAN SONG Comment:Testing performed by : [address] [address] Hct 31.3(L) 38.9 - 50.3 % ETHAN SONG Comment:Testing performed by : [address] [address] Plt 55(L) 150 - 400 K/cumm ETHAN SOGN Comment:Testing performed by : [address] [address] MPV Not Measured 9.1 - 12.3 fL ETHAN SONG Comment:Testing performed by : [address] [address] RBC 3.86(L) 4.30 - 5.80 M/cumm ETHAN SONG Comment:Testing performed by : [address] [address] MCV 81.1(L) 81.3 - 96.4 fL ETHAN Comment:Testing performed by : [address] [address] MCH 26.2(L) 27.1 - 33.3 pg ETHAN Comment:Testing performed by : [address] [address] MCHC 32.3 32.3 - 35.7 g/dL ETHAN Comment:Testing performed by : [address] [address] RDW CV 20.5(H) 11.1 - 14.9 % ETHAN Comment:Testing performed by : [address], [address] RDW SD 57.9(H) 35.7 - 48.1 fL ETHAN Comment:Testing performed by : [address] [address] NRBC abs 0.09(H) 0.00 - 0.01 K/cumm ETHAN Comment:Testing performed by : [address] [address] ANC Prelim 5.08 1.50 - 6.50 K/cumm ETHAN Comment: Interpretive Data The rapid ANC is a preliminary automated count and may vary from the final ANC (Neut Abs) reported in the WBC differential that follows. Current interpretive data was last revised 2024. Testing performed by: [address], [address] Blood 07/07/2024 10:0 5 AM CDT 07/07/2024 10:10 AM CDT Narrative [facility] - 07/07/2024 10:19 AM CDT Mon/Thurs Keli Long NP LAB BLOOD ORDERABLES F inal Result ETHAN [address] [facility] Department [place] [address] * (ABNORMAL) Comprehensive metabolic panel (07/07/2024 10:05 AM CDT) Sodium 138 135 - 145 mmol/L Comment:Testing performed by : [address], [place]., [address] Potassium, pl 4.1 3.3 - 4.9 mmol/L ETHAN Comment:Testing performed by : [address], [place]., [address] Chloride 103 97 - 110 mmol/L ETHAN Comment:Testing performed by : [address], [place]., [address] CO2 24 22 - 32 mmol/L ETHAN Comment:Testing performed by : [address], [place]., [address] Anion gap 11 2 - 15 mmol/L ETHAN Comment:Testing performed by : [address], [place]., [address] BUN 10 6 - 25 mg/dL ETHAN Comment:Testing performed by : [address], [place]., [address] Creatinine 0.90 0.80 - 1.30 mg/dL ETHAN Comment:Testing performed by : [address], [place]., [address] Glucose 141 70 - 199 mg/dL [facility] Comment: Interpretive Data Fasting glucose >/= 126 [...] was last revised 2022. Testing performed by: [address] [address] Calcium 8.9 8.5 - 10.3 mg/dL ETHAN Comment:Testing performed by : [address], [place]., [address] Bilirubin, total 0.2 0.1 - 1.2 mg/dL ETHAN Comment:Testing performed by : [address] [address] Protein, pl 5.7(L) 6.5 - 8.5 g/dL ETHAN Comment:Testing performed by : [address] [address] Albumin 3.8 3.5 - 5.0 g/dL ETHAN Comment:Testing performed by : [address] [address] Alk phos 91 40 - 130 Units/L ETHAN Comment:Testing performed by : [address] [address] ALT 28 7 - 55 Units/L ETHAN Comment:Testing performed by : [address], [address] AST 23 10 - 50 Units/L ETHAN Comment:Testing performed by : [address], [address] Blood 07/07/2024 10:0 5 AM CDT 07/07/2024 10:10 AM CDT Narrative ETHAN - 07/07/2024 10:31 AM CDT Mon/Thurs Keli Long NP LAB BLOOD ORDERABLES F inal Result Performing Organization Address City/[facility]/ZIP Co de Phone Number [address] foc[address]us [place], [place] [id number] * Immature platelet fraction (07/04/2024 10:21 AM CDT) [facility] IPF 9.0 1.6 - 10.1 % Comment:Testing performed by : [address] [address] Blood 07/04/2024 10:2 1 AM CDT 07/04/2024 10:25 AM CDT Keli Long NP LAB BLOOD ORDERABLES F inal Result [facility] [address] Department [place] [address] * (ABNORMAL) Blood smear review (07/04/2024 10:21 AM CDT) Pathologist [facility] RBC morphology Consistent with RBC Indicies Comment:Testing performed by : [address] [address] Platelet estimate Decreased(A) ETHAN Comment:Testing performed by : [address] [address] Blood 07/04/2024 10:2 1 AM CDT 07/04/2024 10:25 AM CDT Keli Long NP LAB BLOOD ORDERABLES F inal Result ETHAN [address] [place] [address] * eGFR (07/04/2024 10:21 AM CDT) Pathologist [facility] eGFR >90 >=60 mL/min/1. 73 m2 Comment: [...] was last reviewed 2021. Testing performed by: [address] [address] Blood 07/04/2024 10:2 1 AM CDT 07/04/2024 10:25 AM CDT us Keli Long NP LAB BLOOD ORDERABLES F inal Result ETHAN [address] [facility] Department [place] [address] * (ABNORMAL) Differential, auto (07/04/2024 10:21 AM CDT) Neutrophil abs 0.07(C) 1.50 - 6.50 K/cumm Comment: This result has been called to Mishel Smith RN Epic Secure Chat by [email or web address] on 07/04/2024 10:35:12, and has been read back. Testing performed by: [address] [address] Imm gran abs 0.01 0.00 - 0.10 K/cumm ETHAN Comment:Testing performed by : [address] [address] Lymphocyte abs 0.30(L) 0.80 - 3.30 K/cumm ETHAN Comment:Testing performed by : [address] [address] Monocyte abs 0.19(L) 0.20 - 0.80 K/cumm ETHAN Comment:Testing performed by : [address] [address] Eosinophil abs 0.01 0.00 - 0.50 K/cumm ETHAN Comment:Testing performed by : [address] [address] Basophil abs 0.01 0.00 - 0.10 K/cumm ETHAN Comment:Testing performed by : [address] [address] Neutrophil pct 11.9 % ETHAN Comment: Interpretive Data Percent cell count reference ranges are not reported, since discordance with absolute values may lead to misinterpretation of CBC data. Current Interpretive Data was last revised on 2017. Testing performed by: [address] [address] Imm gran pct 1.7 % [facility] Comment: Interpretive Data Percent cell count reference ranges are not reported, since discordance with absolute values may lead to misinterpretation of CBC data. Current Interpretive Data was last revised on 2017. Testing performed by: [address] [address] Lymphocyte pct 50.8 % [facility] Comment: Interpretive Data Percent cell count reference ranges are not reported, since discordance with absolute values may lead to misinterpretation of CBC data. Current Interpretive Data was last revised on 2017. Testing performed by: [address] [address] Monocyte pct 32.2 % [facility] Comment: Interpretive Data Percent cell count reference ranges are not reported, since discordance with absolute values may lead to misinterpretation of CBC data. Current Interpretive Data was last revised on 2017. Testing performed by: [address] [address] Eosinophil pct 1.7 % [facility] Comment: Interpretive Data Percent cell count reference ranges are not reported, since discordance with absolute values may lead to misinterpretation of CBC data. Current Interpretive Data was last revised on 2017. Testing performed by: [address] [address] Basophil pct 1.7 % [facility] Comment: Interpretive Data Percent cell count reference ranges are not reported, since discordance with absolute values may lead to misinterpretation of CBC data. Current Interpretive Data was last revised on 2017. Testing performed by: [address] [address] Blood 07/04/2024 10:2 1 AM CDT 07/04/2024 10:25 AM CDT Keli Long [employer] LAB BLOOD ORDERABLES F inal Result ETHAN SONG [address] [facility] Department of Laboratories [place], [place] [id number] * (ABNORMAL) CBC with auto differential (07/04/2024 10:21 AM CDT) WBC 0.59(C) 3.80 - 9.90 K/cumm Comment: This result has been called to Mishel Smith RN Epic Secure Chat by [email or web address] on 07/04/2024 10:35:12, and has been read back. Testing performed by: [address] [address] Hgb 9.7(L) 13.0 - 17.5 g/dL ETHAN Comment:Testing performed by : [address] [address] Hct 29.9(L) 38.9 - 50.3 % ETHAN Comment:Testing performed by : [address] [address] Plt 40(L) 150 - 400 K/cumm ETHAN Comment:Testing performed by : [address] [address] MPV Not Measured 9.1 - 12.3 fL ETHAN Comment:Testing performed by : [address] [address] RBC 3.75(L) 4.30 - 5.80 M/cumm ETHAN Comment:Testing performed by : [address] [address] MCV 79.7(L) 81.3 - 96.4 fL ETHAN Comment:Testing performed by : [address] [address] MCH 25.9(L) 27.1 - 33.3 pg [facility] Comment:Testing performed by : [address] [address] MCHC 32.4 32.3 - 35.7 g/dL ETHAN Comment:Testing performed by : [address] [address] RDW CV 18.5(H) 11.1 - 14.9 % ETHAN Comment:Testing performed by : [address] [address] RDW SD 53.1(H) 35.7 - 48.1 fL CERNER [facility] Comment:Testing performed by : [address] [address] NRBC abs 0.00 0.00 - 0.01 K/cumm ETHAN SONG Comment:Testing performed by : [address] [address] ANC Prelim 0.07(L) 1.50 - 6.50 K/cumm ETHAN Comment: Interpretive Data The rapid ANC is a preliminary automated count and may vary from the final ANC (Neut Abs) reported in the WBC differential that follows. Current interpretive data was last revised 2024. Testing performed by: [address] [address] Blood 07/04/2024 10:2 1 AM CDT 07/04/2024 10:25 AM CDT Narrative ETHAN - 07/04/2024 10:35 AM CDT Mon/Thurs Keli Long [employer] LAB BLOOD ORDERABLES F inal Result [facility] [address] [facility] Department [place] [address] * (ABNORMAL) Comprehensive metabolic panel (07/04/2024 10:21 AM CDT) Sodium 137 135 - 145 mmol/L Comment:Testing performed by : [address] [address] Potassium, pl 4.5 3.3 - 4.9 mmol/L ETHAN Comment:Testing performed by : [address] [address] Chloride 104 97 - 110 mmol/L ETHAN Comment:Testing performed by : [address] [address] CO2 25 22 - 32 mmol/L ETHAN Comment:Testing performed by : [address] [address] Anion gap 8 2 - 15 mmol/L ETHAN Comment:Testing performed by : [address] [place]., [address] BUN 11 6 - 25 mg/dL [facility] Comment:Testing performed by : [address] [address] Creatinine 0.70(L) 0.80 - 1.30 mg/dL [facility] Comment:Testing performed by : [address] [address] Glucose 122 70 - 199 mg/dL [facility] Comment: Interpretive Data Fasting glucose >/= 126 [...] was last revised 2022. Testing performed by: [address] [address] Calcium 9.2 8.5 - 10.3 mg/dL [facility] Comment:Testing performed by : [address] [address] Bilirubin, total 0.3 0.1 - 1.2 mg/dL [facility] Comment:Testing performed by : [address] [address] Protein, pl 5.6(L) 6.5 - 8.5 g/dL [facility] Comment:Testing performed by : [address] [address] Albumin 3.8 3.5 - 5.0 g/dL [facility] Comment:Testing performed by : [address] [address] Alk phos 89 40 - 130 Units/L [facility] Comment:Testing performed by : [address] [address] ALT 22 7 - 55 Units/L ETHAN Comment:Testing performed by : [address] [address] AST 14 10 - 50 Units/L ETHAN Comment:Testing performed by : [address] [address] Blood 07/04/2024 10:2 1 AM CDT 07/04/2024 10:25 AM CDT Narrative ETHAN SONG - 07/04/2024 10:46 AM CDT Mon/Thurs Keli Long NP LAB BLOOD ORDERABLES F inal Result Performing Organization Address [facility] Co de Phone Number [id number] [place] [address] * Blood smear review (06/30/2024 8:29 AM CDT) Pathologist [facility] RBC morphology Consistent with RBC Indicies Comment:Testing performed by : [address] [address] Platelet estimate Adequate ETHAN Comment:Testing performed by : [facility], [address] [place] [address]., [address] Blood 06/30/2024 8:29 AM CDT 06/30/2024 8:45 AM CDT Keli Long NP LAB BLOOD ORDERABLES F inal Result Performing Organization Address [facility] de Phone Number [address] [address] * eGFR (06/30/2024 8:29 AM CDT) eGFR [...] was last reviewed 2021. Testing performed by: [address] [address] Blood 06/30/2024 8:29 AM CDT 06/30/2024 8:41 AM CDT Keli Long NP LAB BLOOD ORDERABLES F inal Result ETHAN [facility] Department [place] [address] * (ABNORMAL) Differential, auto (06/30/2024 8:29 AM CDT) Neutrophil abs 45.59(H) 1.50 - 6.50 K/cumm Comment:Testing performed by : [address] [address] Imm gran abs 5.62(H) 0.00 - 0.10 K/cumm ETHAN Comment:Testing performed by : [address] [address] Lymphocyte abs 0.32(L) 0.80 - 3.30 K/cumm ETHAN Comment:Testing performed by : [address] [address] Monocyte abs 0.03(L) 0.20 - 0.80 K/cumm ETHAN Comment:Testing performed by : [address] [address] Eosinophil abs 0.02 0.00 - 0.50 K/cumm ETHAN Comment:Testing performed by : [address] [address] Basophil abs 0.18(H) 0.00 - 0.10 K/cumm ETHAN Comment:Testing performed by : [address] [address] Neutrophil pct 88.1 % ETHAN Comment: Interpretive Data Percent cell count reference ranges are not reported, since discordance with absolute values may lead to misinterpretation of CBC data. Current Interpretive Data was last revised on 2017. Testing performed by: [address] [address] Imm gran pct 10.9 % ETHAN Comment: Interpretive Data Percent cell count reference ranges are not reported, since discordance with absolute values may lead to misinterpretation of CBC data. Current Interpretive Data was last revised on 2017. Testing performed by: [address] [address] Lymphocyte pct 0.6 % [facility] Comment: Interpretive Data Percent cell count reference ranges are not reported, since discordance with absolute values may lead to misinterpretation of CBC data. Current Interpretive Data was last revised on 2017. Testing performed by: [address] [address] Monocyte pct 0.1 % [facility] Comment: Interpretive Data Percent cell count reference ranges are not reported, since discordance with absolute values may lead to misinterpretation of CBC data. Current Interpretive Data was last revised on 2017. Testing performed by: [address] [address] Eosinophil pct 0.0 % [facility] Comment: Interpretive Data Percent cell count reference ranges are not reported, since discordance with absolute values may lead to misinterpretation of CBC data. Current Interpretive Data was last revised on 2017. Testing performed by: [address] [address] Basophil pct 0.3 % [facility] Comment: Interpretive Data Percent cell count reference ranges are not reported, since discordance with absolute values may lead to misinterpretation of CBC data. Current Interpretive Data was last revised on 2017. Testing performed by: [address] [address] Blood 06/30/2024 8:29 AM CDT 06/30/2024 8:45 AM CDT us Keli Long NP LAB BLOOD ORDERABLES F inal Result ETHAN [address] [facility] Department [place] [address] * (ABNORMAL) CBC with auto differential (06/30/2024 8:29 AM CDT) WBC 51.76(C) 3.80 - 9.90 K/cumm Comment: This result has been called to Mercy Finch RN (secure messaging) by [email or web address] on 06/30/2024 09:00:37, and has been read back. Testing performed by: [address] [address] Hgb 10.1(L) 13.0 - 17.5 g/dL ETHAN Comment:Testing performed by : [address] [address] Hct 30.5(L) 38.9 - 50.3 % ETHAN Comment:Testing performed by : [address] [address] Plt 137(L) 150 - 400 K/cumm ETHAN Comment:Testing performed by : [address] [address] MPV 11.3 9.1 - 12.3 fL ETHAN Comment:Testing performed by : [address] [address] RBC 3.81(L) 4.30 - 5.80 M/cumm ETHAN Comment:Testing performed by : [address] [address] MCV 80.1(L) 81.3 - 96.4 fL ETHAN Comment:Testing performed by : [address] [address] MCH 26.5(L) 27.1 - 33.3 pg ETHAN Comment:Testing performed by : [address] [address] MCHC 33.1 32.3 - 35.7 g/dL ETHAN Comment:Testing performed by : [address] [address] RDW CV 19.0(H) 11.1 - 14.9 % ETHAN Comment:Testing performed by : [address] [address] RDW SD 54.3(H) 35.7 - 48.1 fL ETHAN Comment:Testing performed by : [address] [address] NRBC abs 0.00 0.00 - 0.01 K/cumm ETHAN Comment:Testing performed by : [address] [address] ANC Prelim 45.59(H) 1.50 - 6.50 K/cumm ETHAN Comment: Interpretive Data The rapid ANC is a preliminary automated count and may vary from the final ANC (Neut Abs) reported in the WBC differential that follows. Current interpretive data was last revised 2024. Testing performed by: [address] [address] Blood 06/30/2024 8:29 AM CDT 06/30/2024 8:45 AM CDT Narrative ETHAN - 06/30/2024 9:01 AM CDT Mon/Thurs Keli Long NP LAB BLOOD ORDERABLES F inal Result [facility] [address] [facility] Department [place] [address] * (ABNORMAL) Comprehensive metabolic panel (06/30/2024 8:29 AM CDT) [facility] Sodium 138 135 - 145 mmol/L Comment:Testing performed by : [address] [address] Potassium, pl 3.6 3.3 - 4.9 mmol/L ETHAN Comment:Testing performed by : [address] [address] Chloride 106 97 - 110 mmol/L [facility] Comment:Testing performed by : [address], [place]., [address] CO2 24 22 - 32 mmol/L ETHAN Comment:Testing performed by : [address], [place]., [address] Anion gap 8 2 - 15 mmol/L [facility] Comment:Testing performed by : [address] [address] BUN 19 6 - 25 mg/dL [facility] Comment:Testing performed by : [address], [place]., [address] Creatinine 0.70(L) 0.80 - 1.30 mg/dL [facility] Comment:Testing performed by : [address] [address] Glucose 149 70 - 199 mg/dL [facility] Comment: Interpretive Data Fasting glucose >/= 126 [...] was last revised 2022. Testing performed by: [address] [address] Calcium 8.4(L) 8.5 - 10.3 mg/dL [facility] Comment:Testing performed by : [address] [address] Bilirubin, total 0.4 0.1 - 1.2 mg/dL [facility] Comment:Testing performed by : [address] [address] Protein, pl 4.9(L) 6.5 - 8.5 g/dL [facility] Comment:Testing performed by : [address] [address] Albumin 3.6 3.5 - 5.0 g/dL ETHAN Comment:Testing performed by : [facility], [address] [place] [address]., [address] Alk phos 89 40 - 130 Units/L ETHAN Comment:Testing performed by : [facility], [address] [place] [address]., [address] ALT 20 7 - 55 Units/L ETHAN Comment:Testing performed by : [address] [address] AST 15 10 - 50 Units/L ETHAN Comment:Testing performed by : [address] [address] Blood 06/30/2024 8:29 AM CDT 06/30/2024 8:41 AM CDT Narrative [facility] - 06/30/2024 9:04 AM CDT Mon/Thurs Keli Long NP LAB BLOOD ORDERABLES F inal Result [facility] [address] [facility] Department [place] [address] * eGFR (06/27/2024 11:18 AM CDT) eGFR [...] was last reviewed 2021. Testing performed by: [address] [address] Blood 06/27/2024 11:1 8 AM CDT 06/27/2024 11:22 AM CDT Keli Long NP LAB BLOOD ORDERABLES F inal Result [facility] [address] [facility] Department [place] [address] * (ABNORMAL) Differential, auto (06/27/2024 11:18 AM CDT) Neutrophil abs 4.67 1.50 - 6.50 K/cumm Comment:Testing performed by : [address] [address] Imm gran abs 0.07 0.00 - 0.10 K/cumm ETHAN Comment:Testing performed by : [address] [address] Lymphocyte abs 0.20(L) 0.80 - 3.30 K/cumm ETHAN Comment:Testing performed by : [address] [address] Monocyte abs 0.17(L) 0.20 - 0.80 K/cumm ETHAN Comment:Testing performed by : [address] [address] Eosinophil abs 0.00 0.00 - 0.50 K/cumm ETHAN Comment:Testing performed by : [address] [address] Basophil abs 0.00 0.00 - 0.10 K/cumm ETHAN Comment:Testing performed by : [address] [address] Neutrophil pct 91.4 % ETHAN Comment: Interpretive Data Percent cell count reference ranges are not reported, since discordance with absolute values may lead to misinterpretation of CBC data. Current Interpretive Data was last revised on 2017. Testing performed by: [address] [place]., [address] Imm gran pct 1.4 % [facility] Comment: Interpretive Data Percent cell count reference ranges are not reported, since discordance with absolute values may lead to misinterpretation of CBC data. Current Interpretive Data was last revised on 2017. Testing performed by: [address] [address] Lymphocyte pct 3.9 % [facility] Comment: Interpretive Data Percent cell count reference ranges are not reported, since discordance with absolute values may lead to misinterpretation of CBC data. Current Interpretive Data was last revised on 2017. Testing performed by: [address] [address] Monocyte pct 3.3 % [facility] Comment: Interpretive Data Percent cell count reference ranges are not reported, since discordance with absolute values may lead to misinterpretation of CBC data. Current Interpretive Data was last revised on 2017. Testing performed by: [address] [address] Eosinophil pct 0.0 % [facility] Comment: Interpretive Data Percent cell count reference ranges are not reported, since discordance with absolute values may lead to misinterpretation of CBC data. Current Interpretive Data was last revised on 2017. Testing performed by: [address] [address] Basophil pct 0.0 % [facility] Comment: Interpretive Data Percent cell count reference ranges are not reported, since discordance with absolute values may lead to misinterpretation of CBC data. Current Interpretive Data was last revised on 2017. Testing performed by: [address] [address] Blood 06/27/2024 11:1 8 AM CDT 06/27/2024 11:22 AM CDT us Keli Long NP LAB BLOOD ORDERABLES F inal Result ETHAN [address] [facility] Department [place] [address] * (ABNORMAL) CBC with auto differential (06/27/2024 11:18 AM CDT) [facility] WBC 5.11 3.80 - 9.90 K/cumm Comment:Testing performed by : [address] [address] Hgb 10.4(L) 13.0 - 17.5 g/dL ETHAN Comment:Testing performed by : [address] [address] Hct 31.6(L) 38.9 - 50.3 % ETHAN Comment:Testing performed by : [address], [address] Plt 221 150 - 400 K/cumm ETHAN Comment:Testing performed by : [address], [address] MPV 11.3 9.1 - 12.3 fL ETHAN Comment:Testing performed by : [address], [address] RBC 3.98(L) 4.30 - 5.80 M/cumm ETHAN Comment:Testing performed by : [address], [address] MCV 79.4(L) 81.3 - 96.4 fL ETHAN Comment:Testing performed by : [address], [address] MCH 26.1(L) 27.1 - 33.3 pg ETHAN Comment:Testing performed by : [address], [address] MCHC 32.9 32.3 - 35.7 g/dL ETHAN Comment:Testing performed by : [address], [address] RDW CV 18.5(H) 11.1 - 14.9 % ETHAN Comment:Testing performed by : [address], [address] RDW SD 52.3(H) 35.7 - 48.1 fL ETHAN Comment:Testing performed by : [address], [address] NRBC abs 0.00 0.00 - 0.01 K/cumm ETHAN Comment:Testing performed by : [address] [address] ANC Prelim 4.67 1.50 - 6.50 K/cumm ETHAN Comment: Interpretive Data The rapid ANC is a preliminary automated count and may vary from the final ANC (Neut Abs) reported in the WBC differential that follows. Current interpretive data was last revised 2024. Testing performed by: [address] [address] Blood 06/27/2024 11:1 8 AM CDT 06/27/2024 11:22 AM CDT Narrative ETHAN - 06/27/2024 11:25 AM CDT Mon/Thurs Keli Long [employer]PER[employer] LAB BLOOD ORDERABLES F inal Result ETHAN [address] Department [place] [address] * (ABNORMAL) Comprehensive metabolic panel (06/27/2024 11:18 AM CDT) Sodium 138 135 - 145 mmol/L Comment:Testing performed by : [address] [address] Potassium, pl 3.7 3.3 - 4.9 mmol/L ETHAN Comment:Testing performed by : [address] [address] Chloride 103 97 - 110 mmol/L ETHAN Comment:Testing performed by : [address] [address] CO2 25 22 - 32 mmol/L ETHAN Comment:Testing performed by : [address] [address] Anion gap 10 2 - 15 mmol/L ETHAN Comment:Testing performed by : [address] [address] BUN 29(H) 6 - 25 mg/dL ETHAN Comment:Testing performed by : [address] [place]., [address] Creatinine 0.70(L) 0.80 - 1.30 mg/dL ETHAN Comment:Testing performed by : [address] [address] Glucose 158 70 - 199 mg/dL ETHAN [...] was last revised 2022. Testing performed by: [address] [address] Calcium 8.7 8.5 - 10.3 mg/dL ETHAN Comment:Testing performed by : [address] [address] Bilirubin, total 0.3 0.1 - 1.2 mg/dL [facility] Comment:Testing performed by : [address] [address] Protein, pl 5.4(L) 6.5 - 8.5 g/dL ETHAN Comment:Testing performed by : [address] [address] Albumin 3.9 3.5 - 5.0 g/dL ETHAN Comment:Testing performed by : [address] [address] Alk phos 57 40 - 130 Units/L ETHAN Comment:Testing performed by : [address] [address] ALT 24 7 - 55 Units/L ETHAN Comment:Testing performed by : [address] [address] AST 17 10 - 50 Units/L ETHAN Comment:Testing performed by : [address] [address] Blood 06/27/2024 11:1 8 AM CDT 06/27/2024 11:22 AM CDT Narrative ETHAN - 06/27/2024 11:44 AM CDT Mon/Thurs us Keli Long NP LAB BLOOD ORDERABLES F inal Result Performing Organization Address City/[facility] Co de Phone Number JUAREZ[address] [place] [address] * eGFR (06/23/2024 11:14 AM CDT) eGFR [...] was last reviewed 2021. Testing performed by: [facility], [address] [place] [address]., [address] Blood 06/23/2024 11:1 4 AM CDT 06/23/2024 11:17 AM CDT us Shahid Riddle MD LAB BLOOD ORDERABLES Final R esult Performing Organization Address City/[facility]/ZIP Co de Phone Number JUAREZ[address] [place] [address] * (ABNORMAL) Differential, auto (06/23/2024 11:14 AM CDT) Neutrophil abs 10.22(H) 1.50 - 6.50 K/cumm Comment:Testing performed by : [address] [address] Imm gran abs 0.49(H) 0.00 - 0.10 K/cumm ETHAN Comment:Testing performed by : [address] [address] Lymphocyte abs 0.55(L) 0.80 - 3.30 K/cumm [facility] Comment:Testing performed by : [address] [address] Monocyte abs 0.39 0.20 - 0.80 K/cumm [facility] Comment:Testing performed by : [address] [address] Eosinophil abs 0.02 0.00 - 0.50 K/cumm [facility] Comment:Testing performed by : [address] [address] Basophil abs 0.11(H) 0.00 - 0.10 K/cumm [facility] Comment:Testing performed by : [address] [address] Neutrophil pct 86.7 % [facility] Comment: Interpretive Data Percent cell count reference ranges are not reported, since discordance with absolute values may lead to misinterpretation of CBC data. Current Interpretive Data was last revised on 2017. Testing performed by: [address] [address] Imm gran pct 4.2 % [facility] Comment: Interpretive Data Percent cell count reference ranges are not reported, since discordance with absolute values may lead to misinterpretation of CBC data. Current Interpretive Data was last revised on 2017. Testing performed by: [address] [address] Lymphocyte pct 4.7 % [facility] Comment: Interpretive Data Percent cell count reference ranges are not reported, since discordance with absolute values may lead to misinterpretation of CBC data. Current Interpretive Data was last revised on 2017. Testing performed by: [address] [address] Monocyte pct 3.3 % ETHAN Comment: Interpretive Data Percent cell count reference ranges are not reported, since discordance with absolute values may lead to misinterpretation of CBC data. Current Interpretive Data was last revised on 2017. Testing performed by: [address] [address] Eosinophil pct 0.2 % ETHAN Comment: Interpretive Data Percent cell count reference ranges are not reported, since discordance with absolute values may lead to misinterpretation of CBC data. Current Interpretive Data was last revised on 2017. Testing performed by: [address] [address] Basophil pct 0.9 % ETHAN Comment: Interpretive Data Percent cell count reference ranges are not reported, since discordance with absolute values may lead to misinterpretation of CBC data. Current Interpretive Data was last revised on 2017. Testing performed by: [address] [address] Blood 06/23/2024 11:1 4 AM CDT 06/23/2024 11:17 AM CDT us Shahid Riddle MD LAB BLOOD ORDERABLES Final R esult [facility] [address] [facility] Department [place] [address] * (ABNORMAL) CBC with auto differential (06/23/2024 11:14 AM CDT) WBC 11.78(H) 3.80 - 9.90 K/cumm Comment:Testing performed by : [address] [address] Hgb 11.1(L) 13.0 - 17.5 g/dL ETHAN Comment:Testing performed by : [address] [address] Hct 34.0(L) 38.9 - 50.3 % ETHAN Comment:Testing performed by : [address] [address] Plt 185 150 - 400 K/cumm ETHAN Comment:Testing performed by : [address] [address] MPV 11.3 9.1 - 12.3 fL ETHAN Comment:Testing performed by : [address] [address] RBC 4.21(L) 4.30 - 5.80 M/cumm ETHAN Comment:Testing performed by : [address] [address] MCV 80.8(L) 81.3 - 96.4 fL ETHAN Comment:Testing performed by : [address] [address] MCH 26.4(L) 27.1 - 33.3 pg ETHAN Comment:Testing performed by : [address] [address] MCHC 32.6 32.3 - 35.7 g/dL ETHAN Comment:Testing performed by : [address] [address] RDW CV 19.7(H) 11.1 - 14.9 % ETHAN Comment:Testing performed by : [address] [address] RDW SD 54.3(H) 35.7 - 48.1 fL ETHAN Comment:Testing performed by : [address] [address] NRBC abs 0.06(H) 0.00 - 0.01 K/cumm ETHAN Comment:Testing performed by : [address] [address] ANC Prelim 10.22(H) 1.50 - 6.50 K/cumm ETHAN Comment: Interpretive Data The rapid ANC is a preliminary automated count and may vary from the final ANC (Neut Abs) reported in the WBC differential that follows. Current interpretive data was last revised 2024. Testing performed by: [address], [address] Blood 06/23/2024 11:1 4 AM CDT 06/23/2024 11:17 AM CDT Shahid Riddle MD LAB BLOOD ORDERABLES Final R esult Performing Organization Address City/[facility] Co de Phone Number [id number] [address] * Lactate dehydrogenase (LD) (06/23/2024 11:14 AM CDT) Pathologist [facility] Lactate dehydrogenase (LDH) 232 100 - 250 Units/L Comment:Testing performed by : [address] [address] Blood 06/23/2024 11:1 4 AM CDT 06/23/2024 11:17 AM CDT Shahid Riddle MD LAB BLOOD ORDERABLES Final R esult Performing Organization Address City/[facility] Co de Phone Number [address] [address] * (ABNORMAL) Comprehensive metabolic panel (06/23/2024 11:14 AM CDT) Pathologist [facility] Sodium 136 135 - 145 mmol/L Comment:Testing performed by : [address] [address] Potassium, pl 4.5 3.3 - 4.9 mmol/L ETHAN Comment:Testing performed by : [address] [address] Chloride 104 97 - 110 mmol/L ETHAN Comment:Testing performed by : [address] [address] CO2 22 22 - 32 mmol/L ETHAN Comment:Testing performed by : [address] [address] Anion gap 10 2 - 15 mmol/L ETHAN Comment:Testing performed by : [address] [address] BUN 17 6 - 25 mg/dL ETHAN Comment:Testing performed by : [address] [address] Creatinine 0.90 0.80 - 1.30 mg/dL ETHAN Comment:Testing performed by : [address] [address] Glucose 130 70 - 199 mg/dL ETHAN Comment: Interpretive [...] was last revised 2022. Testing performed by: [address] [address] Calcium 9.2 8.5 - 10.3 mg/dL ETHAN Comment:Testing performed by : [address] [address] Bilirubin, total 0.3 0.1 - 1.2 mg/dL ETHAN Comment:Testing performed by : [address] [address] Protein, pl 6.1(L) 6.5 - 8.5 g/dL ETHAN Comment:Testing performed by : [address] [address] Albumin 4.2 3.5 - 5.0 g/dL ETHAN Comment:Testing performed by : [address] [address] Alk phos 82 40 - 130 Units/L ETHAN Comment:Testing performed by : [address] [address] ALT 28 7 - 55 Units/L ETHAN Comment:Testing performed by : [address], [address] AST 24 10 - 50 Units/L ETHAN Comment:Testing performed by : [address] [address] Blood 06/23/2024 11:1 4 AM CDT 06/23/2024 11:17 AM CDT Shahid Riddle MD LAB BLOOD ORDERABLES Final R esult Performing Organization Address City/[facility]/ZIP Co de Phone Number ETHAN [address] [place] [address] * (ABNORMAL) Blood smear review (06/20/2024 8:20 AM CDT) RBC morphology Consistent with RBC Indicies Comment:Testing performed by : [address] [address] Platelet estimate Decreased(A) [facility] Comment:Testing performed by : [address] [address] Blood 06/20/2024 8:20 AM CDT 06/20/2024 8:25 AM CDT Shahid Riddle MD LAB BLOOD ORDERABLES Final R esult Performing Organization Address City/[facility] Co de Phone Number ETHAN [address] [address] * eGFR (06/20/2024 8:20 AM CDT) eGFR >90 >=60 mL/min/1. 73 [...] was last reviewed 2021. Testing performed by: [address] [address] Blood 06/20/2024 8:20 AM CDT 06/20/2024 8:25 AM CDT us Shahid Riddle MD LAB BLOOD ORDERABLES Final R esult [facility] [address] [facility] Department [place] [address] * (ABNORMAL) Differential, auto (06/20/2024 8:20 AM CDT) Neutrophil abs 6.46 1.50 - 6.50 K/cumm Comment:Testing performed by : [address] [address] Imm gran abs 1.29(H) 0.00 - 0.10 K/cumm ETHAN Comment:Testing performed by : [address] [address] Lymphocyte abs 0.99 0.80 - 3.30 K/cumm ETHAN Comment:Testing performed by : [address] [address] Monocyte abs 0.77 0.20 - 0.80 K/cumm ETHAN Comment:Testing performed by : [address] [address] Eosinophil abs 0.03 0.00 - 0.50 K/cumm ETHAN Comment:Testing performed by : [address] [address] Basophil abs 0.10 0.00 - 0.10 K/cumm ETHAN Comment:Testing performed by : [address] [address] Neutrophil pct 67.0 % ETHAN Comment: Interpretive Data Percent cell count reference ranges are not reported, since discordance with absolute values may lead to misinterpretation of CBC data. Current Interpretive Data was last revised on 2017. Testing performed by: [address] [address] Imm gran pct 13.4 % [facility] Comment: Interpretive Data Percent cell count reference ranges are not reported, since discordance with absolute values may lead to misinterpretation of CBC data. Current Interpretive Data was last revised on 2017. Testing performed by: [address] [address] Lymphocyte pct 10.3 % [facility] Comment: Interpretive Data Percent cell count reference ranges are not reported, since discordance with absolute values may lead to misinterpretation of CBC data. Current Interpretive Data was last revised on 2017. Testing performed by: [address] [address] Monocyte pct 8.0 % [facility] Comment: Interpretive Data Percent cell count reference ranges are not reported, since discordance with absolute values may lead to misinterpretation of CBC data. Current Interpretive Data was last revised on 2017. Testing performed by: [address] [address] Eosinophil pct 0.3 % [facility] Comment: Interpretive Data Percent cell count reference ranges are not reported, since discordance with absolute values may lead to misinterpretation of CBC data. Current Interpretive Data was last revised on 2017. Testing performed by: [address] [address] Basophil pct 1.0 % [facility] Comment: Interpretive Data Percent cell count reference ranges are not reported, since discordance with absolute values may lead to misinterpretation of CBC data. Current Interpretive Data was last revised on 2017. Testing performed by: [address] [address] Blood 06/20/2024 8:20 AM CDT 06/20/2024 8:25 AM CDT us Shahid Riddle MD LAB BLOOD ORDERABLES Final R esult ETHAN [address] [facility] Department [place] [address] * (ABNORMAL) CBC with auto differential (06/20/2024 8:20 AM CDT) WBC 9.64 3.80 - 9.90 K/cumm Comment:Testing performed by : [address] [address] Hgb 10.9(L) 13.0 - 17.5 g/dL ETHAN Comment:Testing performed by : [address] [address] Hct 33.7(L) 38.9 - 50.3 % ETHAN Comment:Testing performed by : [address] [address] Plt 88(L) 150 - 400 K/cumm ETHAN Comment:Testing performed by : [address] [address] MPV 10.9 9.1 - 12.3 fL ETHAN Comment:Testing performed by : [address] [address] RBC 4.18(L) 4.30 - 5.80 M/cumm ETHAN Comment:Testing performed by : [address] [address] MCV 80.6(L) 81.3 - 96.4 fL ETHAN Comment:Testing performed by : [address] [address] MCH 26.1(L) 27.1 - 33.3 pg ETHAN Comment:Testing performed by : [address] [address] MCHC 32.3 32.3 - 35.7 g/dL ETHAN Comment:Testing performed by : [address] [address] RDW CV 19.0(H) 11.1 - 14.9 % ETHAN Comment:Testing performed by : [address] [address] RDW SD 53.2(H) 35.7 - 48.1 fL ETHAN SONG Comment:Testing performed by : [address] [address] NRBC abs 0.11(H) 0.00 - 0.01 K/cumm ETHAN SONG Comment:Testing performed by : [address] [address] ANC Prelim 6.46 1.50 - 6.50 K/cumm ETHAN SONG Comment: Interpretive Data The rapid ANC is a preliminary automated count and may vary from the final ANC (Neut Abs) reported in the WBC differential that follows. Current interpretive data was last revised 2024. Testing performed by: [address] [address] Blood 06/20/2024 8:20 AM CDT 06/20/2024 8:25 AM CDT us Shahid Riddle MD LAB BLOOD ORDERABLES Final R esult ETHAN [address] [facility] Department [place] [address] * (ABNORMAL) Comprehensive metabolic panel (06/20/2024 8:20 AM CDT) Sodium 141 135 - 145 mmol/L Comment:Testing performed by : [address] [address] Potassium, pl 4.1 3.3 - 4.9 mmol/L ETHAN SONG Comment:Testing performed by : [address] [address] Chloride 108 97 - 110 mmol/L ETHAN Comment:Testing performed by : [address] [address] CO2 23 22 - 32 mmol/L ETHAN SONG Comment:Testing performed by : [address] [address] Anion gap 10 2 - 15 mmol/L ETHAN Comment:Testing performed by : [address] [address] BUN 12 6 - 25 mg/dL ETHAN SONG Comment:Testing performed by : [address] [address] Creatinine 0.90 0.80 - 1.30 mg/dL ETHAN Comment:Testing performed by : [address] [address] Glucose 132 70 - 199 mg/dL ETHAN Comment: Interpretive [...] was last revised 2022. Testing performed by: [address] [address] Calcium 9.2 8.5 - 10.3 mg/dL ETHAN Comment:Testing performed by : [address] [address] Bilirubin, total 0.2 0.1 - 1.2 mg/dL ETHAN Comment:Testing performed by : [address] [address] Protein, pl 6.0(L) 6.5 - 8.5 g/dL ETHAN Comment:Testing performed by : [address] [address] Albumin 4.1 3.5 - 5.0 g/dL ETHAN Comment:Testing performed by : [address] [address] Alk phos 97 40 - 130 Units/L ETHAN Comment:Testing performed by : [address] [address] ALT 27 7 - 55 Units/L ETHAN Comment:Testing performed by : [address], [address] AST 22 10 - 50 Units/L ETHAN Comment:Testing performed by : [address] [address] Blood 06/20/2024 8:20 AM CDT 06/20/2024 8:25 AM CDT Shahid Riddle MD LAB BLOOD ORDERABLES Final R esult Performing Organization Address [facility] Co de Phone Number [id number] [address] * Immature platelet fraction (06/16/2024 8:09 AM CDT) IPF 7.3 1.6 - 10.1 % Comment:Testing performed by : [address] [address] Blood 06/16/2024 8:09 AM CDT 06/16/2024 8:11 AM CDT Shahid Riddle MD LAB BLOOD ORDERABLES Final R esult Performing Organization Address [facility] de Phone Number [address] [address] * (ABNORMAL) Blood smear review (06/16/2024 8:09 AM CDT) [facility] RBC morphology Consistent with RBC Indicies Comment:Testing performed by : [address] [address] Platelet estimate Decreased(A) ETHAN SONG Comment:Testing performed by : [address] [address] Blood 06/16/2024 8:09 AM CDT 06/16/2024 8:11 AM CDT Shahid Riddle MD LAB BLOOD ORDERABLES Final R esult Performing Organization Address [facility] Co de Phone Number [address] [place] [address] * eGFR (06/16/2024 8:09 AM CDT) eGFR [...] was last reviewed 2021. Testing performed by: [address] [address] Blood 06/16/2024 8:09 AM CDT 06/16/2024 8:11 AM CDT us Shahid Riddle MD LAB BLOOD ORDERABLES Final R esult ETHAN [address] [facility] Department [place] [address] * (ABNORMAL) Differential, auto (06/16/2024 8:09 AM CDT) Pathologist [facility] Neutrophil abs 6.24 1.50 - 6.50 K/cumm Comment:Testing performed by : [address] [address] Imm gran abs 2.64(H) 0.00 - 0.10 K/cumm ETHAN Comment:Testing performed by : [address] [address] Lymphocyte abs 1.13 0.80 - 3.30 K/cumm ETHAN Comment:Testing performed by : [address] [place] [address] Monocyte abs 0.99(H) 0.20 - 0.80 K/cumm [facility] Comment:Testing performed by : [address] [address] Eosinophil abs 0.02 0.00 - 0.50 K/cumm [facility] Comment:Testing performed by : [address] [address] Basophil abs 0.12(H) 0.00 - 0.10 K/cumm [facility] Comment:Testing performed by : [address] [address] Neutrophil pct 56.0 % [facility] Comment: Interpretive Data Percent cell count reference ranges are not reported, since discordance with absolute values may lead to misinterpretation of CBC data. Current Interpretive Data was last revised on 2017. Testing performed by: [address] [address] Imm gran pct 23.7 % [facility] Comment: Interpretive Data Percent cell count reference ranges are not reported, since discordance with absolute values may lead to misinterpretation of CBC data. Current Interpretive Data was last revised on 2017. Testing performed by: [address] [address] Lymphocyte pct 10.1 % [facility] Comment: Interpretive Data Percent cell count reference ranges are not reported, since discordance with absolute values may lead to misinterpretation of CBC data. Current Interpretive Data was last revised on 2017. Testing performed by: [address] [address] Monocyte pct 8.9 % [facility] Comment: Interpretive Data Percent cell count reference ranges are not reported, since discordance with absolute values may lead to misinterpretation of CBC data. Current Interpretive Data was last revised on 2017. Testing performed by: [address] [address] Eosinophil pct 0.2 % [facility] Comment: Interpretive Data Percent cell count reference ranges are not reported, since discordance with absolute values may lead to misinterpretation of CBC data. Current Interpretive Data was last revised on 2017. Testing performed by: [address] [address] Basophil pct 1.1 % ETHAN Comment: Interpretive Data Percent cell count reference ranges are not reported, since discordance with absolute values may lead to misinterpretation of CBC data. Current Interpretive Data was last revised on 2017. Testing performed by: [address] [address] Blood 06/16/2024 8:09 AM CDT 06/16/2024 8:11 AM CDT us Shahid Riddle MD LAB BLOOD ORDERABLES Final R esult ETHAN [facility] Department [place] [address] * (ABNORMAL) CBC with auto differential (06/16/2024 8:09 AM CDT) WBC 11.14(H) 3.80 - 9.90 K/cumm Comment:Testing performed by : [address] [address] Hgb 10.4(L) 13.0 - 17.5 g/dL ETHAN SONG Comment:Testing performed by : [address] [address] Hct 31.7(L) 38.9 - 50.3 % ETHAN SONG Comment:Testing performed by : [address] [address] Plt 49(L) 150 - 400 K/cumm ETHAN Comment:Testing performed by : [address] [address] MPV Not Measured 9.1 - 12.3 fL ETHAN SONG Comment:Testing performed by : [address] [address] RBC 3.98(L) 4.30 - 5.80 M/cumm ETHAN SONG Comment:Testing performed by : [address] [address] MCV 79.6(L) 81.3 - 96.4 fL ETHAN SONG Comment:Testing performed by : [address] [address] MCH 26.1(L) 27.1 - 33.3 pg ETHAN SONG Comment:Testing performed by : [address] [address] MCHC 32.8 32.3 - 35.7 g/dL ETHAN SONG Comment:Testing performed by : [address] [address] RDW CV 19.1(H) 11.1 - 14.9 % ETHAN Comment:Testing performed by : [address] [address] RDW SD 53.2(H) 35.7 - 48.1 fL ETHAN SONG Comment:Testing performed by : [address] [address] NRBC abs 0.16(H) 0.00 - 0.01 K/cumm ETHAN Comment:Testing performed by : [address] [address] ANC Prelim 6.24 1.50 - 6.50 K/cumm ETHAN Comment: Interpretive Data The rapid ANC is a preliminary automated count and may vary from the final ANC (Neut Abs) reported in the WBC differential that follows. Current interpretive data was last revised 2024. Testing performed by: [address] [address] Blood 06/16/2024 8:09 AM CDT 06/16/2024 8:11 AM CDT us Shahid Riddle MD LAB BLOOD ORDERABLES Final R esult ETHAN SONG [address] [facility] Department of Laboratories [place], [place] [id number] * (ABNORMAL) Comprehensive metabolic panel (06/16/2024 8:09 AM CDT) Sodium 142 135 - 145 mmol/L Comment:Testing performed by : [address] [address] Potassium, pl 3.9 3.3 - 4.9 mmol/L [facility] Comment:Testing performed by : [address] [address] Chloride 107 97 - 110 mmol/L ETHAN Comment:Testing performed by : [address], [place]., [address] CO2 24 22 - 32 mmol/L ETHAN Comment:Testing performed by : [address], [place]., [address] Anion gap 11 2 - 15 mmol/L [facility] Comment:Testing performed by : [address] [address] BUN 6 6 - 25 mg/dL [facility] Comment:Testing performed by : [address], [place]., [address] Creatinine 0.90 0.80 - 1.30 mg/dL [facility] Comment:Testing performed by : [address] [address] Glucose 138 70 - 199 mg/dL [facility] Comment: Interpretive Data Fasting glucose >/= 126 [...] was last revised 2022. Testing performed by: [address] [address] Calcium 9.1 8.5 - 10.3 mg/dL [facility] Comment:Testing performed by : [address] [address] Bilirubin, total 0.2 0.1 - 1.2 mg/dL [facility] Comment:Testing performed by : [address], [place]., [address] Protein, pl 5.6(L) 6.5 - 8.5 g/dL ETHAN Comment:Testing performed by : [address] [address] Albumin 3.7 3.5 - 5.0 g/dL ETHAN Comment:Testing performed by : [address] [address] Alk phos 102 40 - 130 Units/L ETHAN Comment:Testing performed by : [address] [address] ALT 33 7 - 55 Units/L ETHAN Comment:Testing performed by : [address] [address] AST 27 10 - 50 Units/L ETHAN Comment:Testing performed by : [address] [address] Blood 06/16/2024 8:09 AM CDT 06/16/2024 8:11 AM CDT Shahid Riddle MD LAB BLOOD ORDERABLES Final R esult [facility] [address] [facility] Department of Laboratories [place], [place] [id number] * eGFR (06/13/2024 8:24 AM CDT) eGFR [...] was last reviewed 2021. Testing performed by: [address] [address] Blood 06/13/2024 8:24 AM CDT 06/13/2024 8:32 AM CDT us Shahid Riddle MD LAB BLOOD ORDERABLES Final R esult ETHAN [address] [facility] Department [place] [address] * (ABNORMAL) Differential, auto (06/13/2024 8:24 AM CDT) Neutrophil abs 0.2(L) 1.5 - 6.5 K/cumm Comment: Critical result called to and read back by MERCY FINCH RN on 06 13 2024 at 0914 to Melvina Valladares. via secure messaging Testing performed by: [address] [address] Imm gran abs 0.1 0.0 - 0.1 K/cumm ETHAN Comment:Testing performed by : [address] [address] Lymphocyte abs 0.4(L) 0.8 - 3.3 K/cumm ETHAN Comment:Testing performed by : [address] [address] Monocyte abs 0.4 0.2 - 0.8 K/cumm ETHAN Comment:Testing performed by : [address] [address] Eosinophil abs 0.0 0.0 - 0.5 K/cumm ETHAN Comment:Testing performed by : [address] [address] Basophil abs 0.0 0.0 - 0.1 K/cumm ETHAN Comment:Testing performed by : [address] [address] Neutrophil pct 16.6 % ETHAN SONG Comment: Interpretive Data Percent cell count reference ranges are not reported, since discordance with absolute values may lead to misinterpretation of CBC data. Current Interpretive Data was last revised on 2017. Testing performed by: [address] [address] Imm gran pct 9.8 % [facility] Comment: Interpretive Data Percent cell count reference ranges are not reported, since discordance with absolute values may lead to misinterpretation of CBC data. Current Interpretive Data was last revised on 2017. Testing performed by: [address] [address] Lymphocyte pct 36.3 % [facility] Comment: Interpretive Data Percent cell count reference ranges are not reported, since discordance with absolute values may lead to misinterpretation of CBC data. Current Interpretive Data was last revised on 2017. Testing performed by: [address] [address] Monocyte pct 34.3 % [facility] Comment: Interpretive Data Percent cell count reference ranges are not reported, since discordance with absolute values may lead to misinterpretation of CBC data. Current Interpretive Data was last revised on 2017. Testing performed by: [address] [address] Eosinophil pct 1.0 % [facility] Comment: Interpretive Data Percent cell count reference ranges are not reported, since discordance with absolute values may lead to misinterpretation of CBC data. Current Interpretive Data was last revised on 2017. Testing performed by: [address] [address] Basophil pct 2.0 % [facility] Comment: Interpretive Data Percent cell count reference ranges are not reported, since discordance with absolute values may lead to misinterpretation of CBC data. Current Interpretive Data was last revised on 2017. Testing performed by: [address] [address] Blood 06/13/2024 8:24 AM CDT 06/13/2024 8:32 AM CDT Shahid Riddle MD LAB BLOOD ORDERABLES Final R esult ETHAN [address] [facility] Department [place] [address] * (ABNORMAL) CBC with auto differential (06/13/2024 8:24 AM CDT) [facility] WBC 1.0(L) 3.8 - 9.9 K/cumm Comment:Testing performed by : [address] [address] Hgb 10.0(L) 13.0 - 17.5 g/dL ETHAN Comment:Testing performed by : [address] [address] Hct 30.4(L) 38.9 - 50.3 % ETHAN Comment:Testing performed by : [address] [address] Plt 63(L) 150 - 400 K/cumm ETHAN Comment:Testing performed by : [address] [address] MPV Not Measured 9.1 - 12.3 fL ETHAN Comment:Testing performed by : [address] [address] RBC 3.85(L) 4.30 - 5.80 M/cumm ETHAN Comment:Testing performed by : [address] [address] MCV 79.0(L) 81.3 - 96.4 fL ETHAN Comment:Testing performed by : [address] [address] MCH 26.0(L) 27.1 - 33.3 pg ETHAN Comment:Testing performed by : [address] [address] MCHC 32.9 32.3 - 35.7 g/dL ETHAN Comment:Testing performed by : [address] [address] RDW CV 17.7(H) 11.1 - 14.9 % ETHAN Comment:Testing performed by : [address] [address] RDW SD 49.2(H) 35.7 - 48.1 fL ETHAN Comment:Testing performed by : [address] [address] NRBC abs 0.10(H) 0.00 - 0.01 K/cumm ETHAN SONG Comment:Testing performed by : [address] [address] Blood 06/13/2024 8:24 AM CDT 06/13/2024 8:32 AM CDT us Shahid Riddle MD LAB BLOOD ORDERABLES Final R esult Performing Organization Address City/[facility] Co de Phone Number ETHAN [facility] [place] [address] * (ABNORMAL) Manual Differential (06/13/2024 8:24 AM CDT) Differential Auto Comment:Testing performed by : [address], [address] RBC morphology Consistent with RBC Indicies ETHAN Comment:Testing performed by : [address] [address] Platelet estimate Decreased(A) ETHAN Comment:Testing performed by : [address] [address] Blood 06/13/2024 8:24 AM CDT 06/13/2024 8:32 AM CDT us Shahid Riddle MD LAB BLOOD ORDERABLES Final R esult Performing Organization Address City/[facility]/ZIP Co de Phone Number [place] [id number] [facility] [place] [address] * (ABNORMAL) Comprehensive metabolic panel (06/13/2024 8:24 AM CDT) Sodium 140 135 - 145 mmol/L Comment:Testing performed by : [address] [address] Potassium, pl 4.0 3.3 - 4.9 mmol/L ETHAN Comment:Testing performed by : [address] [address] Chloride 106 97 - 110 mmol/L [facility] Comment:Testing performed by : [address], [place]., [address] CO2 24 22 - 32 mmol/L [facility] Comment:Testing performed by : [address] [address] Anion gap 10 2 - 15 mmol/L [facility] Comment:Testing performed by : [address] [address] BUN 9 6 - 25 mg/dL [facility] Comment:Testing performed by : [address] [address] Creatinine 0.70(L) 0.80 - 1.30 mg/dL [facility] Comment:Testing performed by : [address] [address] Glucose 111 70 - 199 mg/dL [facility] Comment: Interpretive Data Fasting glucose >/= 126 [...] was last revised 2022. Testing performed by: [address] [address] Calcium 9.0 8.5 - 10.3 mg/dL [facility] Comment:Testing performed by : [address] [address] Bilirubin, total 0.3 0.1 - 1.2 mg/dL [facility] Comment:Testing performed by : [address] [address] Protein, pl 5.6(L) 6.5 - 8.5 g/dL [facility] Comment:Testing performed by : [address] [address] Albumin 3.8 3.5 - 5.0 g/dL ETHAN Comment:Testing performed by : [address] [address] Alk phos 96 40 - 130 Units/L ETHAN Comment:Testing performed by : [address] [address] ALT 26 7 - 55 Units/L ETHAN Comment:Testing performed by : [address] [address] AST 17 10 - 50 Units/L ETHAN Comment:Testing performed by : [address] [address] Blood 06/13/2024 8:24 AM CDT 06/13/2024 8:32 AM CDT Shahid Riddle MD LAB BLOOD ORDERABLES Final R esult ETHAN [address] [facility] Department [place] [address] * eGFR (06/09/2024 8:22 AM CDT) eGFR [...] was last reviewed 2021. Testing performed by: [address] [address] Blood 06/09/2024 8:22 AM CDT 06/09/2024 8:29 AM CDT us Shahid Riddle MD LAB BLOOD ORDERABLES Final R esult [facility] [address] [facility] Department [place] [address] * (ABNORMAL) Differential, auto (06/09/2024 8:22 AM CDT) Neutrophil abs 36.7(H) 1.5 - 6.5 K/cumm Comment:Testing performed by : [address] [address] Imm gran abs 4.4(H) 0.0 - 0.1 K/cumm ETHAN Comment:Testing performed by : [address] [address] Lymphocyte abs 0.4(L) 0.8 - 3.3 K/cumm ETHAN Comment:Testing performed by : [address] [address] Monocyte abs 0.1(L) 0.2 - 0.8 K/cumm ETHAN Comment:Testing performed by : [address] [address] Eosinophil abs 0.0 0.0 - 0.5 K/cumm ETHAN Comment:Testing performed by : [address] [address] Basophil abs 0.1 0.0 - 0.1 K/cumm ETHAN Comment:Testing performed by : [address] [address] Neutrophil pct 88.0 % ETHAN Comment: Interpretive Data Percent cell count reference ranges are not reported, since discordance with absolute values may lead to misinterpretation of CBC data. Current Interpretive Data was last revised on 2017. Testing performed by: [address] [address] Imm gran pct 10.6 % [facility] Comment: Interpretive Data Percent cell count reference ranges are not reported, since discordance with absolute values may lead to misinterpretation of CBC data. Current Interpretive Data was last revised on 2017. Testing performed by: [address] [address] Lymphocyte pct 1.0 % [facility] Comment: Interpretive Data Percent cell count reference ranges are not reported, since discordance with absolute values may lead to misinterpretation of CBC data. Current Interpretive Data was last revised on 2017. Testing performed by: [address] [address] Monocyte pct 0.1 % [facility] Comment: Interpretive Data Percent cell count reference ranges are not reported, since discordance with absolute values may lead to misinterpretation of CBC data. Current Interpretive Data was last revised on 2017. Testing performed by: [address] [address] Eosinophil pct 0.0 % [facility] Comment: Interpretive Data Percent cell count reference ranges are not reported, since discordance with absolute values may lead to misinterpretation of CBC data. Current Interpretive Data was last revised on 2017. Testing performed by: [address] [address] Basophil pct 0.3 % [facility] Comment: Interpretive Data Percent cell count reference ranges are not reported, since discordance with absolute values may lead to misinterpretation of CBC data. Current Interpretive Data was last revised on 2017. Testing performed by: [address] [address] Blood 06/09/2024 8:22 AM CDT 06/09/2024 8:29 AM CDT us Shahid Riddle MD LAB BLOOD ORDERABLES Final R esult ETHAN [address] [facility] Department [place] [address] * (ABNORMAL) CBC with auto differential (06/09/2024 8:22 AM CDT) [facility] WBC 41.7(H) 3.8 - 9.9 K/cumm Comment:Testing performed by : [address] [address] Hgb 10.6(L) 13.0 - 17.5 g/dL ETHAN Comment:Testing performed by : [address], [address] Hct 31.9(L) 38.9 - 50.3 % ETHAN Comment:Testing performed by : [address], [address] Plt 172 150 - 400 K/cumm ETHAN Comment:Testing performed by : [address] [address] MPV 11.8 9.1 - 12.3 fL ETHAN Comment:Testing performed by : [address], [address] RBC 4.03(L) 4.30 - 5.80 M/cumm ETHAN Comment:Testing performed by : [address], [address] MCV 79.2(L) 81.3 - 96.4 fL ETHAN Comment:Testing performed by : [address] [address] MCH 26.3(L) 27.1 - 33.3 pg ETHAN Comment:Testing performed by : [address], [address] MCHC 33.2 32.3 - 35.7 g/dL ETHAN Comment:Testing performed by : [address], [address] RDW CV 18.1(H) 11.1 - 14.9 % ETHAN Comment:Testing performed by : [address], [address] RDW SD 51.0(H) 35.7 - 48.1 fL ETHAN Comment:Testing performed by : [address], [address] NRBC abs 0.00 0.00 - 0.01 K/cumm ETHAN Comment:Testing performed by : [address] [address] Blood 06/09/2024 8:22 AM CDT 06/09/2024 8:29 AM CDT us Shahid Riddle MD LAB BLOOD ORDERABLES Final R esult ETHAN [address] [facility] Department [place] [address] * (ABNORMAL) Manual Differential (06/09/2024 8:22 AM CDT) Differential Auto Comment:Testing performed by : [address] [address] Neutrophil abs 36.7(H) 1.5 - 6.5 K/cumm ETHAN Comment:Testing performed by : [address] [address] Imm gran abs 4.4(H) 0.0 - 0.1 K/cumm ETHAN Comment:Testing performed by : [address] [address] Lymphocyte abs 0.4(L) 0.8 - 3.3 K/cumm ETHAN Comment:Testing performed by : [address] [address] Monocyte abs 0.1(L) 0.2 - 0.8 K/cumm ETHAN Comment:Testing performed by : [address] [address] Eosinophil abs 0.0 0.0 - 0.5 K/cumm ETHAN Comment:Testing performed by : [address] [address] Basophil abs 0.1 0.0 - 0.1 K/cumm ETHAN Comment:Testing performed by : [address] [address] Neutrophil pct 88.0 % ETHAN Comment: Interpretive Data Percent cell count reference ranges are not reported, since discordance with absolute values may lead to misinterpretation of CBC data. Current Interpretive Data was last revised on 2017. Testing performed by: [address] [address] Imm gran pct 10.6 % ETHAN Comment: Interpretive Data Percent cell count reference ranges are not reported, since discordance with absolute values may lead to misinterpretation of CBC data. Current Interpretive Data was last revised on 2017. Testing performed by: [address] [address] Lymphocyte pct 1.0 % [facility] Comment: Interpretive Data Percent cell count reference ranges are not reported, since discordance with absolute values may lead to misinterpretation of CBC data. Current Interpretive Data was last revised on 2017. Testing performed by: [address] [address] Monocyte pct 0.1 % [facility] Comment: Interpretive Data Percent cell count reference ranges are not reported, since discordance with absolute values may lead to misinterpretation of CBC data. Current Interpretive Data was last revised on 2017. Testing performed by: [address] [address] Eosinophil pct 0.0 % [facility] Comment: Interpretive Data Percent cell count reference ranges are not reported, since discordance with absolute values may lead to misinterpretation of CBC data. Current Interpretive Data was last revised on 2017. Testing performed by: [address] [address] Basophil pct 0.3 % [facility] Comment: Interpretive Data Percent cell count reference ranges are not reported, since discordance with absolute values may lead to misinterpretation of CBC data. Current Interpretive Data was last revised on 2017. Testing performed by: [address] [address] RBC morphology Consistent with RBC Indicies ETHAN Comment:Testing performed by : [address] [address] Blood 06/09/2024 8:22 AM CDT 06/09/2024 8:29 AM CDT us Shahid Riddle MD LAB BLOOD ORDERABLES Final R esult ETHAN [address] [facility] Department [place] [address] * (ABNORMAL) Comprehensive metabolic panel (06/09/2024 8:22 AM CDT) Sodium 138 135 - 145 mmol/L Comment:Testing performed by : [address] [address] Potassium, pl 3.4 3.3 - 4.9 mmol/L ETHAN Comment:Testing performed by : [address] [address] Chloride 102 97 - 110 mmol/L ETHAN Comment:Testing performed by : [address] [address] CO2 25 22 - 32 mmol/L ETHAN Comment:Testing performed by : [address] [address] Anion gap 11 2 - 15 mmol/L ETHAN Comment:Testing performed by : [address] [address] BUN 19 6 - 25 mg/dL ETHAN Comment:Testing performed by : [address] [address] Creatinine 0.80 0.80 - 1.30 mg/dL ETHAN Comment:Testing performed by : [address] [address] Glucose 137 70 - 199 mg/dL ETHAN [...] was last revised 2022. Testing performed by: [facility], [address] [place] [address]., [address] Calcium 8.3(L) 8.5 - 10.3 mg/dL ETHAN Comment:Testing performed by : [address] [address] Bilirubin, total 0.5 0.1 - 1.2 mg/dL ETHAN Comment:Testing performed by : [address] [address] Protein, pl 4.9(L) 6.5 - 8.5 g/dL ETHAN Comment:Testing performed by : [address] [address] Albumin 3.4(L) 3.5 - 5.0 g/dL ETHAN Comment:Testing performed by : [address] [address] Alk phos 102 40 - 130 Units/L ETHAN Comment:Testing performed by : [address] [address] ALT 22 7 - 55 Units/L ETHAN Comment:Testing performed by : [address] [address] AST 15 10 - 50 Units/L ETHAN Comment:Testing performed by : [address] [address] Blood 06/09/2024 8:22 AM CDT 06/09/2024 8:29 AM CDT us Shahid Riddle MD LAB BLOOD ORDERABLES Final R esult ETHAN [address] [facility] Department of Laboratories [place], [place] [id number] * eGFR (06/06/2024 7:51 AM CDT) eGFR [...] was last reviewed 2021. Testing performed by: [address] [address] Blood 06/06/2024 7:51 AM CDT 06/06/2024 7:54 AM CDT us Shahid Riddle MD LAB BLOOD ORDERABLES Final R esult [facility] Department [place] [address] * (ABNORMAL) Differential, auto (06/06/2024 7:51 AM CDT) Neutrophil abs 4.1 1.5 - 6.5 K/cumm Comment:Testing performed by : [address] [address] Imm gran abs 0.1 0.0 - 0.1 K/cumm ETHAN Comment:Testing performed by : [address] [address] Lymphocyte abs 0.2(L) 0.8 - 3.3 K/cumm ETHAN Comment:Testing performed by : [address] [address] Monocyte abs 0.1(L) 0.2 - 0.8 K/cumm ETHAN Comment:Testing performed by : [address] [address] Eosinophil abs 0.0 0.0 - 0.5 K/cumm [facility] Comment:Testing performed by : [address] [address] Basophil abs 0.0 0.0 - 0.1 K/cumm [facility] Comment:Testing performed by : [address] [address] Neutrophil pct 91.2 % [facility] Comment: Interpretive Data Percent cell count reference ranges are not reported, since discordance with absolute values may lead to misinterpretation of CBC data. Current Interpretive Data was last revised on 2017. Testing performed by: [address] [address] Imm gran pct 1.6 % [facility] Comment: Interpretive Data Percent cell count reference ranges are not reported, since discordance with absolute values may lead to misinterpretation of CBC data. Current Interpretive Data was last revised on 2017. Testing performed by: [address] [address] Lymphocyte pct 4.5 % [facility] Comment: Interpretive Data Percent cell count reference ranges are not reported, since discordance with absolute values may lead to misinterpretation of CBC data. Current Interpretive Data was last revised on 2017. Testing performed by: [address] [address] Monocyte pct 2.7 % [facility] Comment: Interpretive Data Percent cell count reference ranges are not reported, since discordance with absolute values may lead to misinterpretation of CBC data. Current Interpretive Data was last revised on 2017. Testing performed by: [address] [address] Eosinophil pct 0.0 % [facility] Comment: Interpretive Data Percent cell count reference ranges are not reported, since discordance with absolute values may lead to misinterpretation of CBC data. Current Interpretive Data was last revised on 2017. Testing performed by: [address] [address] Basophil pct 0.0 % [facility] Comment: Interpretive Data Percent cell count reference ranges are not reported, since discordance with absolute values may lead to misinterpretation of CBC data. Current Interpretive Data was last revised on 2017. Testing performed by: [address] [address] Blood 06/06/2024 7:51 AM CDT 06/06/2024 7:54 AM CDT us Shahid Riddle MD LAB BLOOD ORDERABLES Final R esult [facility] [address] [facility] Department [place] [address] * (ABNORMAL) CBC with auto differential (06/06/2024 7:51 AM CDT) WBC 4.5 3.8 - 9.9 K/cumm Comment:Testing performed by : [address] [address] Hgb 10.7(L) 13.0 - 17.5 g/dL ETHAN Comment:Testing performed by : [address] [address] Hct 31.9(L) 38.9 - 50.3 % ETHAN Comment:Testing performed by : [address] [address] Plt 219 150 - 400 K/cumm ETHAN Comment:Testing performed by : [address] [address] MPV 11.6 9.1 - 12.3 fL ETHAN Comment:Testing performed by : [address] [address] RBC 4.06(L) 4.30 - 5.80 M/cumm ETHAN Comment:Testing performed by : [address] [address] MCV 78.6(L) 81.3 - 96.4 fL ETHAN Comment:Testing performed by : [address] [address] MCH 26.4(L) 27.1 - 33.3 pg ETHAN Comment:Testing performed by : [address] [address] MCHC 33.5 32.3 - 35.7 g/dL ETHAN SONG Comment:Testing performed by : [address] [address] RDW CV 17.7(H) 11.1 - 14.9 % ETHAN SONG Comment:Testing performed by : [address] [address] RDW SD 49.5(H) 35.7 - 48.1 fL ETHAN SONG Comment:Testing performed by : [address] [address] NRBC abs 0.00 0.00 - 0.01 K/cumm ETHAN SONG Comment:Testing performed by : [address] [address] Blood 06/06/2024 7:51 AM CDT 06/06/2024 7:54 AM CDT Shahid Riddle MD LAB BLOOD ORDERABLES Final R esult ETHAN [facility] Department [place] [address] * (ABNORMAL) Comprehensive metabolic panel (06/06/2024 7:51 AM CDT) Sodium 140 135 - 145 mmol/L Comment:Testing performed by : [address] [address] Potassium, pl 4.1 3.3 - 4.9 mmol/L ETHAN SONG Comment:Testing performed by : [address] [address] Chloride 106 97 - 110 mmol/L ETHAN SONG Comment:Testing performed by : [address] [address] CO2 25 22 - 32 mmol/L ETHAN SONG Comment:Testing performed by : [address] [address] Anion gap 9 2 - 15 mmol/L ETHAN SONG Comment:Testing performed by : [address] [address] BUN 29(H) 6 - 25 mg/dL [facility] Comment:Testing performed by : [address] [address] Creatinine 0.90 0.80 - 1.30 mg/dL ETHAN Comment:Testing performed by : [address] [address] Glucose 191 70 - 199 mg/dL [facility] Comment: Interpretive Data Fasting glucose >/= 126 [...] was last revised 2022. Testing performed by: [address] [address] Calcium 8.9 8.5 - 10.3 mg/dL [facility] Comment:Testing performed by : [address] [address] Bilirubin, total 0.4 0.1 - 1.2 mg/dL [facility] Comment:Testing performed by : [address] [address] Protein, pl 5.4(L) 6.5 - 8.5 g/dL ETHAN Comment:Testing performed by : [address] [address] Albumin 3.8 3.5 - 5.0 g/dL [facility] Comment:Testing performed by : [address] [address] Alk phos 66 40 - 130 Units/L ETHAN Comment:Testing performed by : [address] [address] ALT 26 7 - 55 Units/L ETHAN Comment:Testing performed by : [address], [address] AST 19 10 - 50 Units/L ETHAN Comment:Testing performed by : [address] [address] Blood 06/06/2024 7:51 AM CDT 06/06/2024 7:54 AM CDT Shahid Riddle MD LAB BLOOD ORDERABLES Final R esult Performing Organization Address City/[facility]/ZIP Co de Phone Number ETHAN [address] [place] [address] * eGFR (06/02/2024 7:38 AM CDT) eGFR [...] was last reviewed 2021. Testing performed by: [facility], [address] [place] [address]., [address] Blood 06/02/2024 7:38 AM CDT 06/02/2024 7:40 AM CDT Shahid Riddle MD LAB BLOOD ORDERABLES Final R esult Performing Organization Address City/[facility]/ZIP Co de Phone Number ETHAN [address] [place] [address] * (ABNORMAL) Differential, auto (06/02/2024 7:38 AM CDT) Neutrophil abs 7.1(H) 1.5 - 6.5 K/cumm Comment:Testing performed by : [address] [address] Imm gran abs 0.5(H) 0.0 - 0.1 K/cumm ETHAN Comment:Testing performed by : [address] [address] Lymphocyte abs 1.1 0.8 - 3.3 K/cumm [facility] Comment:Testing performed by : [address] [address] Monocyte abs 1.0(H) 0.2 - 0.8 K/cumm [facility] Comment:Testing performed by : [address] [address] Eosinophil abs 0.0 0.0 - 0.5 K/cumm [facility] Comment:Testing performed by : [address] [address] Basophil abs 0.1 0.0 - 0.1 K/cumm [facility] Comment:Testing performed by : [address] [address] Neutrophil pct 72.7 % [facility] Comment: Interpretive Data Percent cell count reference ranges are not reported, since discordance with absolute values may lead to misinterpretation of CBC data. Current Interpretive Data was last revised on 2017. Testing performed by: [address] [address] Imm gran pct 5.0 % [facility] Comment: Interpretive Data Percent cell count reference ranges are not reported, since discordance with absolute values may lead to misinterpretation of CBC data. Current Interpretive Data was last revised on 2017. Testing performed by: [address] [address] Lymphocyte pct 11.0 % [facility] Comment: Interpretive Data Percent cell count reference ranges are not reported, since discordance with absolute values may lead to misinterpretation of CBC data. Current Interpretive Data was last revised on 2017. Testing performed by: [address] [address] Monocyte pct 10.2 % ETHAN Comment: Interpretive Data Percent cell count reference ranges are not reported, since discordance with absolute values may lead to misinterpretation of CBC data. Current Interpretive Data was last revised on 2017. Testing performed by: [address] [address] Eosinophil pct 0.2 % ETHAN Comment: Interpretive Data Percent cell count reference ranges are not reported, since discordance with absolute values may lead to misinterpretation of CBC data. Current Interpretive Data was last revised on 2017. Testing performed by: [address] [address] Basophil pct 0.9 % ETHAN Comment: Interpretive Data Percent cell count reference ranges are not reported, since discordance with absolute values may lead to misinterpretation of CBC data. Current Interpretive Data was last revised on 2017. Testing performed by: [address] [address] Blood 06/02/2024 7:38 AM CDT 06/02/2024 7:40 AM CDT us Shahid Riddle MD LAB BLOOD ORDERABLES Final R esult [facility] [address] [facility] Department of Laboratories [place], [place] [id number] * Iron profile w/ IBC (06/02/2024 7:38 AM CDT) Iron 61 50 - 150 mcg/dL Comment:Testing performed by : [address] [address] TIBC 264 250 - 400 mcg/dL ETHAN SONG Comment:Testing performed by : [address] [address] Transferrin saturation 23 20 - 50 % ETHAN Comment:Testing performed by : [address] [address] Blood 06/02/2024 7:38 AM CDT 06/02/2024 9:34 AM CDT us Shahid Riddle MD LAB BLOOD ORDERABLES Final R esult ETHAN [address] [facility] Department [place] [address] * (ABNORMAL) CBC with auto differential (06/02/2024 7:38 AM CDT) Pathologist [facility] WBC 9.7 3.8 - 9.9 K/cumm Comment:Testing performed by : [address] [address] Hgb 11.2(L) 13.0 - 17.5 g/dL ETHAN Comment:Testing performed by : [address] [address] Hct 35.4(L) 38.9 - 50.3 % ETHAN Comment:Testing performed by : [address] [address] Plt 202 150 - 400 K/cumm ETHAN Comment:Testing performed by : [address] [address] MPV 11.1 9.1 - 12.3 fL ETHAN Comment:Testing performed by : [address] [address] RBC 4.36 4.30 - 5.80 M/cumm ETHAN Comment:Testing performed by : [address] [address] MCV 81.2(L) 81.3 - 96.4 fL ETHAN Comment:Testing performed by : [address] [address] MCH 25.7(L) 27.1 - 33.3 pg ETHAN SONG Comment:Testing performed by : [address] [address] MCHC 31.6(L) 32.3 - 35.7 g/dL ETHAN SONG Comment:Testing performed by : [address] [address] RDW CV 18.5(H) 11.1 - 14.9 % ETHAN SONG Comment:Testing performed by : [facility], [address] [place] [address]., [address] RDW SD 51.8(H) 35.7 - 48.1 fL ETHAN SONG Comment:Testing performed by : [facility], [address] [place] [address]., [address] NRBC abs 0.05(H) 0.00 - 0.01 K/cumm ETHAN SONG Comment:Testing performed by : [address], [address] Blood 06/02/2024 7:38 AM CDT 06/02/2024 7:40 AM CDT us Shahid Riddle MD LAB BLOOD ORDERABLES Final R esult Performing Organization Address City/[facility]/ZIP Co de Phone Number [address] [place] [address] * Lactate dehydrogenase (LD) (06/02/2024 7:38 AM CDT) Lactate dehydrogenase (LDH) 245 100 - 250 Units/L Comment:Testing performed by : [address], [address] Blood 06/02/2024 7:38 AM CDT 06/02/2024 7:40 AM CDT us Shahid Riddle MD LAB BLOOD ORDERABLES Final R esult [address] [place] [address] * (ABNORMAL) Ferritin (06/02/2024 7:38 AM CDT) Ferritin 948(H) 30 - 400 ng/mL Comment:Testing performed by : [address], [address] Blood 06/02/2024 7:38 AM CDT 06/02/2024 9:34 AM CDT us Shahid Riddle MD LAB BLOOD ORDERABLES Final R esult ETHAN [address] [facility] Department [place] [address] * (ABNORMAL) Comprehensive metabolic panel (06/02/2024 7:38 AM CDT) Sodium 139 135 - 145 mmol/L Comment:Testing performed by : [address] [address] Potassium, pl 4.2 3.3 - 4.9 mmol/L ETHAN Comment:Testing performed by : [address] [address] Chloride 107 97 - 110 mmol/L ETHAN Comment:Testing performed by : [address] [address] CO2 22 22 - 32 mmol/L ETHAN Comment:Testing performed by : [address] [address] Anion gap 10 2 - 15 mmol/L ETHAN Comment:Testing performed by : [address] [address] BUN 17 6 - 25 mg/dL ETHAN Comment:Testing performed by : [address] [address] Creatinine 1.10 0.80 - 1.30 mg/dL ETHAN Comment:Testing performed by : [address] [address] Glucose 134 70 - 199 mg/dL ETHAN [...] was last revised 2022. Testing performed by: [address] [address] Calcium 9.2 8.5 - 10.3 mg/dL ETHAN Comment:Testing performed by : [address] [address] Bilirubin, total 0.3 0.1 - 1.2 mg/dL ETHAN Comment:Testing performed by : [address] [address] Protein, pl 5.9(L) 6.5 - 8.5 g/dL ETHAN Comment:Testing performed by : [address] [address] Albumin 4.0 3.5 - 5.0 g/dL ETHAN Comment:Testing performed by : [address], [address] Alk phos 91 40 - 130 Units/L ETHAN Comment:Testing performed by : [address] [address] ALT 30 7 - 55 Units/L ETHAN Comment:Testing performed by : [address] [address] AST 25 10 - 50 Units/L ETHAN Comment:Testing performed by : [address] [address] Blood 06/02/2024 7:38 AM CDT 06/02/2024 7:40 AM CDT us Shahid Riddle MD LAB BLOOD ORDERABLES Final R esult ETHAN [address] [facility] Department [place] [address] * TRANSTHORACIC ECHO (TTE) COMPLETE W DOPPLER/CF W CONTRAST (05/30/2024 2:57 PM CDT) LV EF 50-55 % CONS SCIMAGE Anatomical Region Laterality Modality Ultrasound 05/30/2024 2:08 PM CDT Narrative 05/31/2024 10:49 AM CDT Transthoracic Echocardiographic Report Patient Name: SONALI GATES H : 1965 (59y ) Gender: M Study Date: 05/30/2024 02:08:16 PM Ht(Inch): 75 Wt(Lb): 264 BSA: 2.52 Senior Housekeeper: DILEEP Wu Order Provider: ELAN RIDDLE Heart Rate: 68 BMI: 32.99 BP: 121 / 75 Ref Provider: ELAN RIDDLE PROCEDURES: Echocardiographic Report: ([id number]) Transthoracic complete echo with contrast, 2D, spectral [...] PM Ht(Inch): 75 Wt(Lb): 264 BSA: 2.52 Senior Housekeeper: DILEEP Wu Order Provider: ELAN RIDDLE Heart Rate: 68 BMI: 32.99 BP: 121 / 75 Ref Provider: RIDDLEELAN PROCEDURES: Echocardiographic Report: ([id number]) Transthoracic complete echo withcontrast, 2D, spectral and [...] Rocael Galvan MD 05/31/2024 10:49:24 AM CDT [facility] Cali Riddle MD CV ECHO PROCEDURES [...] was last reviewed 2021. Testing performed by: [address] [address] Blood 05/30/2024 8:40 AM CDT 05/30/2024 8:44 AM CDT us Shahid Riddle MD LAB BLOOD ORDERABLES Final R esult [facility] [address] [facility] Department [place] [address] * (ABNORMAL) Differential, auto (05/30/2024 8:40 AM CDT) Neutrophil abs 11.1(H) 1.5 - 6.5 K/cumm Comment:Testing performed by : [address] [address] Imm gran abs 2.4(H) 0.0 - 0.1 K/cumm ETHAN Comment:Testing performed by : [address] [address] Lymphocyte abs 1.2 0.8 - 3.3 K/cumm ETHAN Comment:Testing performed by : [address] [address] Monocyte abs 1.2(H) 0.2 - 0.8 K/cumm ETHAN Comment:Testing performed by : [address] [address] Eosinophil abs 0.1 0.0 - 0.5 K/cumm ETHAN Comment:Testing performed by : [address] [address] Basophil abs 0.1 0.0 - 0.1 K/cumm ETHAN Comment:Testing performed by : [address] [address] Neutrophil pct 69.4 % ETHAN Comment: Interpretive Data Percent cell count reference ranges are not reported, since discordance with absolute values may lead to misinterpretation of CBC data. Current Interpretive Data was last revised on 2017. Testing performed by: [address] [address] Imm gran pct 15.1 % [facility] Comment: Interpretive Data Percent cell count reference ranges are not reported, since discordance with absolute values may lead to misinterpretation of CBC data. Current Interpretive Data was last revised on 2017. Testing performed by: [address] [address] Lymphocyte pct 7.2 % [facility] Comment: Interpretive Data Percent cell count reference ranges are not reported, since discordance with absolute values may lead to misinterpretation of CBC data. Current Interpretive Data was last revised on 2017. Testing performed by: [address] [address] Monocyte pct 7.2 % [facility] Comment: Interpretive Data Percent cell count reference ranges are not reported, since discordance with absolute values may lead to misinterpretation of CBC data. Current Interpretive Data was last revised on 2017. Testing performed by: [address] [address] Eosinophil pct 0.3 % [facility] Comment: Interpretive Data Percent cell count reference ranges are not reported, since discordance with absolute values may lead to misinterpretation of CBC data. Current Interpretive Data was last revised on 2017. Testing performed by: [address] [address] Basophil pct 0.8 % [facility] Comment: Interpretive Data Percent cell count reference ranges are not reported, since discordance with absolute values may lead to misinterpretation of CBC data. Current Interpretive Data was last revised on 2017. Testing performed by: [address] [address] Blood 05/30/2024 8:40 AM CDT 05/30/2024 8:44 AM CDT us Shahid Riddle MD LAB BLOOD ORDERABLES Final R esult ETHAN SONG [address] [facility] Department [place] [address] * (ABNORMAL) CBC with auto differential (05/30/2024 8:40 AM CDT) [facility] WBC 16.1(H) 3.8 - 9.9 K/cumm Comment:Testing performed by : [address], [address] Hgb 11.5(L) 13.0 - 17.5 g/dL ETHAN Comment:Testing performed by : [address], [address] Hct 36.1(L) 38.9 - 50.3 % ETHAN Comment:Testing performed by : [address], [address] Plt 123(L) 150 - 400 K/cumm ETHAN Comment:Testing performed by : [address], [address] MPV 10.6 9.1 - 12.3 fL ETHAN Comment:Testing performed by : [address], [address] RBC 4.47 4.30 - 5.80 M/cumm ETHAN Comment:Testing performed by : [address] [address] MCV 80.8(L) 81.3 - 96.4 fL ETHAN Comment:Testing performed by : [address] [address] MCH 25.7(L) 27.1 - 33.3 pg ETHAN Comment:Testing performed by : [address], [address] MCHC 31.9(L) 32.3 - 35.7 g/dL ETHAN Comment:Testing performed by : [address], [address] RDW CV 18.4(H) 11.1 - 14.9 % ETHAN Comment:Testing performed by : [address], [address] RDW SD 51.6(H) 35.7 - 48.1 fL ETHAN Comment:Testing performed by : [address], [address] NRBC abs 0.08(H) 0.00 - 0.01 K/cumm ETHAN Comment:Testing performed by : [address] [address] Blood 05/30/2024 8:40 AM CDT 05/30/2024 8:44 AM CDT us Shahid Riddle MD LAB BLOOD ORDERABLES Final R esult ETHAN [address] [facility] Department [place] [address] * (ABNORMAL) Comprehensive metabolic panel (05/30/2024 8:40 AM CDT) Sodium 139 135 - 145 mmol/L Comment:Testing performed by : [address] [address] Potassium, pl 4.2 3.3 - 4.9 mmol/L ETHAN Comment:Testing performed by : [address] [address] Chloride 107 97 - 110 mmol/L ETHAN Comment:Testing performed by : [address] [address] CO2 23 22 - 32 mmol/L ETHAN Comment:Testing performed by : [address] [address] Anion gap 9 2 - 15 mmol/L ETHAN Comment:Testing performed by : [address] [address] BUN 16 6 - 25 mg/dL ETHAN Comment:Testing performed by : [address] [address] Creatinine 0.90 0.80 - 1.30 mg/dL ETHAN Comment:Testing performed by : [address] [address] Glucose 166 70 - 199 mg/dL ETHAN Comment: Interpretive [...] was last revised 2022. Testing performed by: [address] [address] Calcium 9.0 8.5 - 10.3 mg/dL ETHAN Comment:Testing performed by : [address] [address] Bilirubin, total 0.2 0.1 - 1.2 mg/dL ETHAN Comment:Testing performed by : [address] [address] Protein, pl 5.9(L) 6.5 - 8.5 g/dL ETHAN Comment:Testing performed by : [address] [address] Albumin 4.0 3.5 - 5.0 g/dL ETHAN Comment:Testing performed by : [address] [address] Alk phos 107 40 - 130 Units/L ETHAN Comment:Testing performed by : [address] [address] ALT 27 7 - 55 Units/L ETHAN Comment:Testing performed by : [address] [address] AST 23 10 - 50 Units/L ETHAN Comment:Testing performed by : [address] [address] Blood 05/30/2024 8:40 AM CDT 05/30/2024 8:44 AM CDT us Shahid Riddle MD LAB BLOOD ORDERABLES Final R esult ETHAN [address] [facility] Department of Laboratories [place], [place] [id number] * eGFR (05/26/2024 8:36 AM CDT) eGFR [...] was last reviewed 2021. Testing performed by: [address] [address] Blood 05/26/2024 8:36 AM CDT 05/26/2024 8:48 AM CDT us Shahid Riddle MD LAB BLOOD ORDERABLES Final R esult ETHAN [address] [facility] Department [place] [address] * (ABNORMAL) CBC with auto differential (05/26/2024 8:36 AM CDT) Pathologist [facility] WBC 15.4(H) 3.8 - 9.9 K/cumm Comment:Testing performed by : [address] [address] Hgb 11.4(L) 13.0 - 17.5 g/dL ETHAN SONG Comment:Testing performed by : [address] [address] Hct 35.2(L) 38.9 - 50.3 % ETHAN SONG Comment:Testing performed by : [address] [address] Plt 55(L) 150 - 400 K/cumm ETHAN Comment:Testing performed by : [address] [address] MPV Not Measured 9.1 - 12.3 fL ETHAN Comment:Testing performed by : [address] [address] RBC 4.38 4.30 - 5.80 M/cumm ETHAN Comment:Testing performed by : [address] [address] MCV 80.4(L) 81.3 - 96.4 fL ETHAN Comment:Testing performed by : [address] [address] MCH 26.0(L) 27.1 - 33.3 pg ETHAN Comment:Testing performed by : [address] [address] MCHC 32.4 32.3 - 35.7 g/dL ETHAN Comment:Testing performed by : [address] [address] RDW CV 18.4(H) 11.1 - 14.9 % ETHAN Comment:Testing performed by : [address] [address] RDW SD 53.2(H) 35.7 - 48.1 fL ETHAN Comment:Testing performed by : [address] [address] NRBC abs 0.17(H) 0.00 - 0.01 K/cumm ETHAN Comment:Testing performed by : [address], [address] Blood 05/26/2024 8:36 AM CDT 05/26/2024 8:48 AM CDT us Shahid Riddle MD LAB BLOOD ORDERABLES Edited Result - Final ETHAN [address] [facility] Department [place] [address] * (ABNORMAL) Manual Differential (05/26/2024 8:36 AM CDT) Differential Manual Comment:Testing performed by : [address] [address] Cells Counted 100 [facility] Comment:Testing performed by : [address], [place]., [address] Neutrophil abs 10.8(H) 1.5 - 6.5 K/cumm [facility] Comment:Testing performed by : [address], [place]., [address] Imm gran abs 1.7(H) 0.0 - 0.1 K/cumm [facility] Comment:Testing performed by : [address] [address] Lymphocyte abs 2.5 0.8 - 3.3 K/cumm [facility] Comment:Testing performed by : [address] [address] Monocyte abs 0.5 0.2 - 0.8 K/cumm [facility] Comment:Testing performed by : [address] [address] Neutrophil pct 55.0 % [facility] Comment: Interpretive Data Percent cell count reference ranges are not reported, since discordance with absolute values may lead to misinterpretation of CBC data. Current Interpretive Data was last revised on 2017. Testing performed by: [address] [address] Lymphocyte pct 16.0 % [facility] Comment: Interpretive Data Percent cell count reference ranges are not reported, since discordance with absolute values may lead to misinterpretation of CBC data. Current Interpretive Data was last revised on 2017. Testing performed by: [address] [address] Monocyte pct 3.0 % [facility] Comment: Interpretive Data Percent cell count reference ranges are not reported, since discordance with absolute values may lead to misinterpretation of CBC data. Current Interpretive Data was last revised on 2017. Testing performed by: [address] [address] Band Neutrophil pct 15.0(H) 0.0 - 5.0 % ETHAN Comment:Testing performed by : [facility] [address] [place] [address], [place]., [address] Metamyelocyte pct 9.0(H) 0.0 - 0.0 % ETHAN Comment:Testing performed by : [facility] [address] [place] [address], [place]., [address] Myelocyte pct 2.0(H) 0.0 - 0.0 % ETHAN Comment:Testing performed by : [facility] [address] [place] [address], [place]., [address] RBC morphology Consistent with RBC Indicies ETHAN Comment:Testing performed by : [facility] [address] [place] [address], [place]., [address] Platelet estimate Decreased(A) ETHAN SONG Comment:Testing performed by : [facility] [address] [place] [address], [place]., [address] Blood 05/26/2024 8:36 AM CDT 05/26/2024 8:48 AM CDT us Shahid Riddle MD LAB BLOOD ORDERABLES Final R esult ETHAN [facility]6 [facility] Department [place] [address] * (ABNORMAL) Comprehensive metabolic panel (05/26/2024 8:36 AM CDT) Sodium 142 135 - 145 mmol/L Comment:Testing performed by : [facility] [address] [place] [address]., [address] Potassium, pl 3.8 3.3 - 4.9 mmol/L ETHAN SONG Comment:Testing performed by : [facility] [address] [place] [address]., [address] Chloride 109 97 - 110 mmol/L ETHAN SONG Comment:Testing performed by : [facility] [address] [place] [address], [place]., [address] CO2 24 22 - 32 mmol/L ETHAN SONG Comment:Testing performed by : [facility] [address] [place] [address], [place]., [address] Anion gap 9 2 - 15 mmol/L ETHAN SONG Comment:Testing performed by : [address] [address] BUN 12 6 - 25 mg/dL ETHAN Comment:Testing performed by : [address] [address] Creatinine 1.00 0.80 - 1.30 mg/dL ETHAN Comment:Testing performed by : [address] [address] Glucose 123 70 - 199 mg/dL ETHAN Comment: Interpretive [...] was last revised 2022. Testing performed by: [address] [address] Calcium 9.2 8.5 - 10.3 mg/dL ETHAN Comment:Testing performed by : [address] [address] Bilirubin, total 0.2 0.1 - 1.2 mg/dL ETHAN Comment:Testing performed by : [address] [address] Protein, pl 6.0(L) 6.5 - 8.5 g/dL ETHAN Comment:Testing performed by : [address] [address] Albumin 4.0 3.5 - 5.0 g/dL ETHAN Comment:Testing performed by : [address] [address] Alk phos 103 40 - 130 Units/L ETHAN Comment:Testing performed by : [address] [address] ALT 28 7 - 55 Units/L ETHAN Comment:Testing performed by : [address] [place] [address] AST 27 10 - 50 Units/L ETHAN Comment:Testing performed by : [facility], [address] [place] [address]., [address] Blood 05/26/2024 8:36 AM CDT 05/26/2024 8:48 AM CDT Shahid Riddle MD LAB BLOOD ORDERABLES Final R esult Performing Organization Address City/[facility] Co de Phone Number ETHAN [address] [facility] Department [place] [address] * Hepatitis C antibody Blood (02/18/2024 12:48 PM CHILDREN'S ATTENDANT) Hep C Ab Nonreactive Nonreactive Comment: Antibodies [...] on 2019. Blood 02/18/2024 12:4 8 PM CHILDREN'S ATTENDANT 02/18/2024 2:24 PM CHILDREN'S ATTENDANT Shahid Riddle MD LAB MICROBIOLOGY - GENERAL O RDERABLES Final Result Performing Organization Address City/[facility]/ZIP Co de Phone Number [facility] [address] [facility] Department [place] [address] from Last 3 Months or Most Recently Relevant to Health Maintenance Insurance [facility] [place] [address] [facility] [place] [address] [facility] Advance Directives For more information, please contact: [phone] * Full Code (Latest Code Status on File) Date Activated Date Inactivated Comments 03/23/2024 11:00 PM 03/28/2024 9:22 PM * Full Code Date Activated Date Inactivated Comments 03/23/2024 10:41 PM 03/23/2024 11:00 PM * Full Code Date Activated Date Inactivated Comments 02/08/2024 7:18 AM 02/09/2024 5:17 AM Care Teams Curve Cleaner Relationship Specialty Start Date End Date Peter Keita MD [address] [address] PCP - General Family Medicine 04/14/24 Babita Smart MD [address] [place] [address] 01/11/24 Holden Miller MD PhD [address] [place] [address] MEDICAL ONCOLOGY, [facility] [address] [place] [address] Consulting Physician Medical Oncology 01/22/24 Shahid Riddle MD [address] [place] [address] Consulting Physician Internal Medicine 02/16/24 Elan Riddle MD [facility]5 [facility] [address], [place] [address] Consulting Physician Interventional Cardiology 02/18/24 Peter Keita MD [address] [place] [address] Referring Physician Family Medicine 02/18/24
--- OUTSIDE RECORDS SUMMARY | 2024-08-24 16:59 | XMS_ITS ---
Author Organization [facility] Address [address] [place] [address] Care Team Providers Care Delivery And Mail Sorter Name Role Phone Babita Smart MD Unavailable [phone] Holden Miller MD PhD Unavailable [phone] Shahid Riddle MD Unavailable [phone] Liam Riddle MD Unavailable [phone] Peter Keita MD Unavailable [phone] Peter Keita MD Primary Care Provider Active Problems Problem Noted Date Diagnosed Date Heart failure with mildly reduced ejection fract ion 04/08/2024 Constipation 03/25/2024 Assessment & Plan (03/26/2024 10:47 AM ASSISTANT COOK): Several days of constipation - Senna-docusate bid, miralax and bisacodyl suppository prn in addition - Advised to avoid straining - Resolved 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 Presented to OSH ([facility]): Troponin I elevated 0.164 on admission, peaked [...] a surgical eval. He was transferred to [facility] to be evaluated. CTA Chest 03/18/2024: negative for PE, aortic dissection, or aortic aneurysm. The extensive homogeneous anterior mediastinal mass is decreased in extent from prior exam CT chest and cath images uploaded on [employer] Previous TTE 02/05/2024 LVEF 40-45% with anterior [...] least 30 days. Discussed with Cards fellow cancer program consultant - Ticagrelor son check: $52.20/mo, discussed with Pt - Repeat TTE 03/24: Grossly upper normal LV size with mildly reduced segmental LV systolic function w/ estimated EF=45% and akinetic anteroseptal. distal septal and apical barraza. Grade I diastolic LV dysfunction - Telemetry while inpatient - Cardiac rehab as outpatient. 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 Mediastinal mass 02/09/2024 Persons encountering health services in other specified circumstances 02/02/2024 Mixed hyperlipidemia 04/05/2021 LVE (left ventricular enlargement) 04/05/2021 Bradycardia 11/30/2017 S/P coronary artery stent placement 10/08/2016 Adiposity 04/02/2016 Overview (06/19/2016): Obesity, Class I, BMI 30.0-34.9 (see actual BMI) CAD (coronary artery disease) 04/02/2016 Overview (06/19/2016): Coronary artery disease involving [place] coronary artery of [place] heart without angina pectoris Assessment & Plan (03/24/2024 10:20 AM ASSISTANT COOK): CAD s/p stent placement (2006 in [place], [place]) Management as above Hypertension 04/02/2016 Overview (06/19/2016): HTN (hypertension), benign Assessment & Plan (03/28/2024 11:34 AM ASSISTANT COOK): BP stable. Discontinue home HCTZ-irbesartan, hydralazine, doxazosin to allow room for heart failure GDMT initiation. See above Abnormal thallium stress test 04/02/2016 Overview (06/19/2016): Abnormal nuclear stress test BLUE (obstructive sleep apnea) 04/02/2016 Overview (06/19/2016): BLUE on CPAP Assessment & Plan (03/24/2024 10:16 AM ASSISTANT COOK): CPAP HS History of myocardial infarction 04/02/2016 Overview (06/19/2016): H/O acute myocardial infarction Current Treatment and Therapy Plans BMT Adult Blood and Platelet Administration for Inpatient* Plan Start Date: 03/24/2024 Plan Provider:Thea Moses MD Linked Problems Diffuse large B-cell lymphom a of intrathoracic lymph nodes (HCC) Treatment Medications No medications scheduled. IV Maintenance Therapy Plan* Plan Start Date:02/26/2024 Plan Provider:Shahid Riddle MD Linked Problems Diffuse large B-cell lymphom a of intrathoracic lymph nodes (HCC) Treatment Medications No medications scheduled. Past Treatment and Therapy Plans Oncology Chemotherapy Treatment Plan Name Start Date Discontinue Date Treatment Medications Discontinue Reason Plan Provider Cycles Russel-R-CHP: Polatuzumab / RiTUXimab / DOXOrubicin (ADRIAMYCIN) / Cyclophosphamide / PredniSONE 21 Day Cycles - Lymphoma 02/22/20 24 02/25/2024 cycloPHOSphamide (CYTOXAN)DOXOrubi muara (ADRIAMYCIN)polat uzumab vedotin (POLIVY)riTUXimab -abbs (TRUXIMA) Provider Discretion Shahid Riddle MD Treatment not started Oncology Treatment (2) Plan Name Start Date Discontinue Date Treatment Medications Discontinue Reason Plan Provider Cycles OUTPT Dose-Adjusted R-EPOCH (RiTUXimab / Etoposide / PredniSONE / VinCRIStine / Cyclophosphamide / DOXOrubicin) 21 Day Cycles - Diffuse Large B-Cell Lymphoma 024 08/12/2024 cycloPHOSphamide IVPB in 250 mL (vial 200 mg/mL)(J9073)dexAM ETHasone (DECADRON)DOXOrubi maura (ADRIAMYCIN), etopophos, and vinCRIStine infusionriTUXimab- abbs (TRUXIMA) IVPB in 500 mL Therapy Complete Shahid Riddle MD 6 of 6 cycles started Lifetime Dose Tracking * Chemical Lifetime Dose Automatic Entry Manual Entr y doxorubicin 279.841 mg/m2 (692 mg) 279.841 mg/m2 (692 mg) 0 mg/m2 (0 mg) Fluoro Time 1.1 minutes 1.1 minutes 0 minutes cyclophosphamide 5,002.719 mg/m2 (12,600 mg) 5,002.719 mg/m2 (12,600 mg) 0 mg/m2 (0 mg) etoposide phosphate 1,565.714 mg/m2 (3,871.2 mg) 1,565.714 mg/m2 (3,871.2 mg) 0 mg/m2 (0 mg) doxorubicin isotoxic equivalent (Please manually verify calculation) 279.841 mg/m2 (692 mg) 279.841 mg/m2 (692 mg) 0 mg/m2 (0 mg) Air kerma at the reference point (Ka,r) 4,945 mGy 22 mGy 4,923 mGy Resolved Problems Problem Noted Date Diagnosed Date Resolved Date Heart failure with reduced ejection fraction 5 04/08/2024 Assessment & Plan (03/28/2024 11:38 AM ASSISTANT COOK): 01/2024: LV systolic function is reduced, EF [...]
--- OUTSIDE RECORDS SUMMARY | 2024-08-24 16:59 | XMS_ITS | Clinical Summary ---
Author Organization [facility] Address [address] [facility] [place] [address] Care Team Providers Care Security Specialist Name Role Phone Unavailable Primary Care Provider Unavailabl e Source Comments [facility],non-owned Affiliates and Associated Physician Practices is amultiple site organization consisting of ambulatory clinics and hospital sitesin [place] and [place]. This disclosure is being madepursuant to the Care Everywhere program and may not contain all information available regarding this patient. Last updated 17.[facility] Social History Tobacco Use Types Packs/Day Years Used Date Smoking Tobacco: Never Assessed Sex and Gender Information Value Date Recorded Sex Assigned at Not on file Legal Sex Male 3:43 PM CDT Gender Identity Not on file Sexual Orientation Not on file Plan of Treatment Health Maintenance Due Date Last Done Comments COLOGUARD (AGES 45-75) - COL ON CA SCREENING 1966 COLON MONITORING 1966 COLONOSCOPY - COLON CA SCREENING 1966 CT COLONOGRAPHY - COLON CA SCREENING 1966 Colorectal Cancer Screening 1966 FIT - COLON CA SCREENING 1966 FLEX SIG - COLON CA SCREENING 1966 LIPID TESTING 1966 HIV SCREENING 1981 HEPATITIS C SCREENING 05/04/1984 DTAP/TDAP/TD VACCINES (1 - Tdap) 1985 HEPATITIS B VACCINE (1 of 3 - 19+ 3-dose series) 1985 PNEUMOCOCCAL VACCINE 50+ (1 of 1 - PCV) 2016 ZOSTER VACCINE (1 of 2) 2016 COVID-19 VACCINE ( - 2023-2 5 season) 2023 DEPRESSION SCREENING 03/16/2024 INFLUENZA VACCINE (Season Ended) 2024 HIB VACCINE Aged Out No longer eligi ble based on patient's age to complete this topic HPV VACCINE Aged Out No longer eligi ble based on patient's age to complete this topic MENINGOCOCCAL (Group B) VACC INE SHARED DECISION-MAKING Aged Out No longer eligibl e based on patient's age to complete this topic MENINGOCOCCAL GROUPS A/C/Y/W VACCINE Aged Out No longer eligible b ased on patient's age to complete this topic Insurance SELF PAY NO INSURANCE Member Subscriber Plan / Payer (Ef fective for All Dates) Name:Trevon [place] Member ID:Not on file Relation to Subscriber:Not on file Name:TREVON GATES Subscriber ID:Not on file (Home) Address: [address] [place] [address] [place] [address] Payer ID:Not on file Group ID:Not on file Type:Self Pay Address: [place], [place] [employer]
--- OUTSIDE RECORDS SUMMARY | 2024-08-24 16:59 | XMS_ITS | Encounter Summary ---
Author Organization [facility] Address [address] [place] [address] Care Team Providers Care Technical Sales Representative Name Role Phone Unavailable Primary Care Provider Unavailabl e Encounter Details Date Type Department Care Team (Late st Contact Info) Description 12/31/2023 Lab Requisition [facility] [address] [place] [address] Christy Noble MD [address] [place] [address] Illness, unspecified Social History Tobacco Use Types Packs/Day Years [...] Procedure Name Priority Date/Time Associated Diagnosis Comments SLIDE PREP HISTOLOGY Routine 12/29/2023 12:30 PM CDT Illness, unspecified documented in this encounter Results * SLIDE PREP HISTOLOGY (12/29/2023 12:30 PM CDT) Client Specimen ID # [id number] 06/24/2024 1:09 PM CDT [facility] Number of Blocks Received 0 06/24/2024 1:09 PM CDT [facility] Number of Slides 1 06/24/2024 1:09 PM CDT [facility] Number of Control Slides 1 06/24/2024 1:09 PM CDT [facility] Pathology/Cytolo gy 12/29/2023 12:30 PM CDT 12/31/2023 8:12 AM CDT us Christy Noble MD LAB - PATHOLOGY/CYTOLOGY OR DERABLES Final Result Performing Organization Address City/State/[facility] Co de Phone Number [facility] [address] [facility] [phone] documented in this encounter Visit Diagnoses Diagnosis Illness, unspecified documented in this encounter
--- OUTSIDE RECORDS SUMMARY | 2024-08-24 16:59 | XMS_ITS | Encounter Summary ---
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 INSTRUCTOR Illness, unspecified documented in this encounter Results * SLIDE PREP HISTOLOGY (02/18/2024 10:00 AM INDUSTRIAL MAINTENANCE INSTRUCTOR) Client Specimen ID # [id number] 06/24/2024 1:22 PM [facility] Number of Blocks Received 0 06/24/2024 1:22 PM [facility] Number of Slides 1 06/24/2024 1:22 PM [facility] Number of Control Slides 1 06/24/2024 1:22 PM [facility] Pathology/Cytolo gy 02/18/2024 10:00 AM INDUSTRIAL MAINTENANCE INSTRUCTOR 12/31/2023 1:06 PM CDT Lamar Noble MD LAB - PATHOLOGY/CYTOLOGY OR DERABLES Final Result Performing Organization Address City/State/[facility] Co de Phone Number [facility] [address] [facility] [phone] documented in this encounter Visit Diagnoses Diagnosis Illness, unspecified documented in this encounter
== END 2024-08-24 14:08 | disposition home or self-care (01) ==
LOC: CHSIMG 14:09
PROVIDERS: PCP Family Medicine
DX: I73.9 Peripheral vascular disease, unspecified (principal)
CPT/HCPCS: 93922